=== PATIENT | female | born 1960 | race Caucasian/White ===

== ENCOUNTER 2023-05-04 17:06 | Outpatient (OUT) | payer OTHER, SELFPAY ==
--- NOTE | 2023-05-04 | XR_ITS ---
[address] [address] Patient Name: MAIKOL KNIGHT MRN: [id number] date: 1960 Sex: F Assigned Patient Location: [facility] Current Patient Location: [facility] Accession/Order Number: [id number] Exam Date: 05/04/2023 17:45 Report Date: 05/05/2023 01:39 At the request of: ANTHONY BOJORQUEZ Procedure: XR lumbar spine 2-3V EXAMINATION: XR lumbar spine 2-3V HISTORY: Chronic right low back/ right sciatic pain;M54.41 COMPARISON: XR L-spine 04/25/2017 FINDINGS: BONES: Slight left convex curvature lumbar spine. No fracture or significant spondylolisthesis. Mild degenerative facet arthropathy L3-L4 through L5-S1. DISC SPACES: Mild narrowing L3-L4. PARASPINOUS: Negative. No paraspinous abnormality is seen. OTHER: Negative. IMPRESSION: 1. No acute abnormality. 2. Mild degenerative disc disease and facet arthropathy of the lumbar spine; not appreciably changed. Electronically authenticated by: SEBASTIAN MIKE Date: 05/05/2023 01:39
--- NOTE | 2023-05-04 | XR_ITS ---
[address] [address] Patient Name: MAIKOL KNIGHT MRN: [id number] date: 1960 Sex: F Assigned Patient Location: [facility] Current Patient Location: Accession/Order Number: [id number] Exam Date: 05/04/2023 17:45 Report Date: 05/05/2023 01:36 At the request of: ANTHONY BOJORQUEZ Procedure: XR hip RT 2V w/ pelvis PROCEDURE: XR hip RT 2V w/ pelvis HISTORY: Chronic right sciatic/low back pain; M54.41 COMPARISON: None. FINDINGS: BONES:No fracture, acute abnormality, or significant arthropathy. SOFT TISSUES:No visible soft tissue swelling. EFFUSION:None visible. OTHER: Negative. IMPRESSION: 1. No acute bone abnormality or significant degenerative joint disease. Electronically authenticated by: SEBASTIAN MIKE Date: 05/05/2023 01:36
== END 2023-05-04 17:07 | disposition home or self-care (01) ==
PROVIDERS: PCP Family Medicine; Visit Provider Family Medicine
DX: M25.551 Pain in right hip (principal); M54.41 Lumbago with sciatica, right side
CPT/HCPCS: 72100; 73502

== ENCOUNTER 2023-05-13 14:15 | Emergency (ER) | payer OTHER, SELFPAY ==
[2023-05-13 14:33] VITALS: BP 152/82; PULSE 72; RESP 20; TEMP 36.6; O2SAT 96; BMI 31.8
--- NOTE | 2023-05-13 15:13 | XR_ITS ---
The [address] [address] Patient Name: MAIKOL KNIGHT MRN: [id number] date: 1960 Sex: F Assigned Patient Location: ED.MAIN Current Patient Location: Accession/Order Number: [id number] Exam Date: 05/13/2023 15:45 Report Date: 05/13/2023 16:29 At the request of: MEGAN OJEDA Procedure: XR hip RT 2V w/ pelvis EXAM: XR hip RT 2V w/ pelvis HISTORY: pain right hip COMPARISON: 05/04/2023. TECHNIQUE: AP pelvis. 2 views right hip joint. FINDINGS: Pelvic rings are intact. Surgical clips over the left pelvis. Minimal degenerative change of the hip joints with no fracture or dislocation. XR/XR hip RT 2V w/ pelvis IMPRESSION: No acute process or significant change from prior. If patient cannot bear weight or has persistent symptoms, then recommend MRI. Electronically authenticated by: ROBERT FERRER Date: 05/13/2023 16:29
[2023-05-13] MEDS: MORPHINE SULFATE 4 MG/ML VIAL 6 MG IM (15:24)
[2023-05-13] MEDS: PREDNISONE 20 MG TABLET 60 MG PO (15:24)
--- NOTE | 2023-05-13 15:26 | ED.GENADUL1 ---
Documented by User: SORAIDA Canas 05/13/23 16:00 HPI - General Adult General Chief complaint: Back Pain/Injury Stated complaint: HIP/BACK PAIN Time Seen by Provider: 05/13/23 15:02 Source: patient Mode of arrival: Wheelchair Limitations: no limitations History of Present Illness HPI narrative: patient is a 62-year-old female presents to the Emergency Room with concerns of right hip pain. Patient reports pain started four weeks ago, she denies aany specific injury, but did have increased activity with moving out of her duplex. Patient states she has pain sometimes sharp aching into the groin and buttock region occasionally radiating down the anterior thigh. She initially saw her family doctor and was on prednisone and Vicodin with temporary relief, the past few days symptoms have worsened and she has needed to use a walker. Patient states shee can stand without pain but when she twists or moves her leg then the pain comes into her groin. She denies any fevers or chills. She takes gabapentin for peripheral neuropathy and sees local neurology. Patient appears nontoxic in no acute distress at the bedside. Radiation: Denies non-radiation Severity: severe (with movement) Quality: Reports stabbing and aching Pain Consistency: Reports intermittent Exacerbating factors: Reports movement Associated symptoms: Denies confusion, chest pain, cough, nausea/vomiting or rash Related Data Home Medications Medication Instructions Recorded Confirmed albuterol sulfate 90 mcg/actuation 2 puff inhalation Q4H PRN 05/13/23 05/13/23 aerosol inhaler shortness of breath or wheezing alprazolam 0.5 mg tablet 0.5 mg PO BID PRN anxiety 05/13/23 05/13/23 amitriptyline 25 mg tablet 25 mg PO DAILY 05/13/23 05/13/23 atenolol 25 mg tablet 25 mg PO Q12H 05/13/23 05/13/23 atorvastatin 80 mg tablet 80 mg PO DAILY 05/13/23 05/13/23 budesonide-formoterol HFA 160 2 puff inhalation Q12H 05/13/23 05/13/23 mcg-4.5 mcg/actuation aerosol inhaler clopidogrel 75 mg tablet 75 mg PO DAILY 05/13/23 05/13/23 diltiazem HCl 180 mg 180 mg PO Q24H 05/13/23 05/13/23 capsule,extended release 24 hr, controlled fenofibrate nanocrystallized 145 145 mg PO DAILY 05/13/23 05/13/23 mg tablet gabapentin 600 mg tablet 600 mg PO Q8H 05/13/23 05/13/23 levothyroxine 50 mcg tablet 50 mcg PO DAILY 05/13/23 05/13/23 varenicline 1 mg tablet 1 mg PO BID 05/13/23 05/13/23 Previous Rx's Medication Instructions Recorded prednisone 20 mg tablet 20 mg PO DAILY 10 days #15 tabs 05/13/23 Allergies Allergy/AdvReac Type Severity Reaction Status Date / Time ciprofloxacin [From Cipro] Allergy Intermediate Verified 05/13/23 14:35 Penicillins Allergy Intermediate Verified 05/13/23 14:35 Sulfa (Sulfonamide Allergy Intermediate Verified 05/13/23 14:35 Antibiotics) Review of Systems ROS Constitutional Denies: fever or chills Eyes Denies: change in vision Ears, nose, mouth, and throat Denies: throat pain, neck pain or dry mouth Cardiovascular Denies: chest pain Respiratory Denies: shortness of breath or cough Gastrointestinal Denies: abdominal pain, nausea or vomiting Musculoskeletal Reports: joint pain (localized right hip); Denies: back pain or neck pain Integumentary/Breast Denies: rash or itching Neurological Denies: headache or numbness in extremities (history of peripheral neuropathy) Psychiatric Denies: anxiety Endocrine Denies: excessive urination or fatigue Hematologic/Lymphatic Denies: easy bruising Allergic/Immunologic Denies: hives or throat swelling Exam Narrative Exam Narrative: Vital signs and nurses notes reviewed. The patient is not hypoxic. General: The patient appears well and in no apparent distress. Patient is resting comfortably on cart. Skin: Warm, dry, no pallor noted. The patient has no evidence of rash, petechiae, or purpura noted. Head: Normocephalic, atraumatic, no temporal arterial tenderness Neck: Supple, trachea mid-line, no tenderness, no lymphadenopathy. No meningeal signs. No nuchal rigidity. Eye: Pupils are equal, round and reactive to light, EOMI Ears, Nose, Mouth, and Throat: Oral mucosa is moist, TMs are clear bilaterally, no hemotympanum noted. Cardiovascular: Regular Rate and Rhythm Respiratory: Patient is in no distress, no accessory muscle use, lungs are clear to auscultation, no wheezing, rales or rhonchi Back: non-tender, no CVA tenderness Musculoskeletal: right hip without warmth or erythema, mildly tender over the greater trochanteric bursa, mild tenderness to the posterior SI joint region. Straight leg raise is negative for radiculopathy, positive FADIRs test concerning for labral tear or impingement. Neg FABERS, Limited range of motion on right with stiffness mild guarding on end rom, tolerated PROM without difficulty. Left hip is unremarkable. normal strength 5/5. Normal pulses to radial 2+ bilaterally and 2+ at DP and PT bilaterally and symmetrically. right and left knee exam is unremarkable. GI: Normal bowel sounds, no tenderness to palpation, no masses appreciated. No rebound, guarding, or rigidity noted. 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 The patient is not ataxic. The patient has normal speech. The patient has normal coordination. . Normal motor and sensory observed. Psychiatric: Cooperative Constitutional Vital Signs, click to edit/add: Last Vital Signs Temp 98 F 05/13/23 14:33 Pulse 72 05/13/23 14:33 Resp 20 05/13/23 14:33 BP 152/82 H 05/13/23 14:33 Pulse Ox 96 05/13/23 14:33 O2 Del Method Room Air 05/13/23 14:33 Course Vital Signs Vital signs: Vital Signs Temperature 98 F 05/13/23 14:33 Pulse Rate 72 05/13/23 14:33 Respiratory Rate 20 05/13/23 14:33 Blood Pressure 152/82 H 05/13/23 14:33 Pulse Oximetry 96 05/13/23 14:33 Oxygen Delivery Method Room Air 05/13/23 14:33 Temperature 98 F 05/13/23 14:33 Pulse Rate 72 05/13/23 14:33 Respiratory Rate 20 05/13/23 14:33 Blood Pressure 152/82 H 05/13/23 14:33 Pulse Oximetry 96 05/13/23 14:33 Oxygen Delivery Method Room Air 05/13/23 14:33 Medical Decision Making MDM Narrative Medical decision making narrative: patient without fever or chills, has painless passive range of motion, pain is noted on extreme and range of motion with concerns for possible hip impingement or labral tear, infectious etiology not likely, patient did have x-rays on 05/04/23 and was on prednisone and pain medication prior to this with some relief. X-rays were personally reviewed, given that her symptoms have worsened I do recommend repeat x-ray today, but we thoroughly discussed at the bedside the need for potential MRI or physical therapy on an outpatient basis pending eval with orthopedics. Patient denies any low back pain and has reproducible pain at the right hip with an range of motion. Patient's abdomen is nontender, she denies any dysuria. Patient declines need for any pain medication at home as she has [place], but does request a shot here for pain and will use her walker to offload her hip pending follow-up with orthopedics. x-rays today weight-bearing preservation of the joint space, no evidence of fracture. Discussed with patient, patient will contact orthopedics tomorrow as discussed, patient's pain improved, patient admits that when she is seated or rest pain is near completely gone, standing also does not cause pain only when the leg rotates to the right or with activity and walking that she gets increased pain in the groin or buttock. The patient is to followup with primary care physician/ Dr. Truong in next 1-3 days or to return to the emergency department should any of the signs or symptoms worsen or new symptoms develop. Patient had questions answered. The patient agrees with the following Diagnosis and Treatment plan and the patient will be discharged home. Medical Records Medical records narrative: patient had outpatient right hip x-ray on 05/04/23, no acute process noted, slight pincer deformity appreciated on personal reviewed, x-ray lumbar spine 05/04/23, no acute fracture, degenerative changes mostly appreciable in the facet joints bilaterally Discharge Plan Discharge Chief Complaint: Back Pain/Injury Clinical Impression: Acute right hip pain Patient Disposition: Home, Self-Care Time of Disposition Decision: 15:59 Condition: Good Prescriptions / Home Meds: New prednisone 20 mg tablet 20 mg PO DAILY 10 Days Qty: 15 0RF Rx Instructions: 2 tabs po for 5 days then 1 tab for 5 days. take with food in morning No Action albuterol sulfate 90 mcg/actuation HFA aerosol inhaler 2 puff INHALATION Q4H PRN (Reason: shortness of breath or wheezing) alprazolam 0.5 mg tablet 0.5 mg PO BID PRN (Reason: anxiety) amitriptyline 25 mg tablet 25 mg PO DAILY atenolol 25 mg tablet 25 mg PO Q12H atorvastatin 80 mg tablet 80 mg PO DAILY budesonide-formoterol 160-4.5 mcg/actuation HFA aerosol inhaler 2 puff INHALATION Q12H clopidogrel 75 mg tablet 75 mg PO DAILY diltiazem HCl 180 mg capsule,ext.rel 24h degradable 180 mg PO Q24H fenofibrate nanocrystallized 145 mg tablet 145 mg PO DAILY gabapentin 600 mg tablet 600 mg PO Q8H levothyroxine 50 mcg tablet 50 mcg PO DAILY varenicline 1 mg tablet 1 mg PO BID Instructions: Hip Pain (ED) Additional Instructions: 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 Truong renewable energy division manager ) Christian Aviles MD [Primary Care Provider] - 1 week Discharge Date/Time: 05/13/23 16:05 Documented by User: Salina Goodrich MD 05/13/23 18:30 HPI - General Adult General Chief complaint: Back Pain/Injury Stated complaint: HIP/BACK PAIN Time Seen by Provider: 05/13/23 15:02 Related Data Home Medications Medication Instructions Recorded Confirmed albuterol sulfate 90 mcg/actuation 2 puff inhalation Q4H PRN 05/13/23 05/13/23 aerosol inhaler shortness of breath or wheezing alprazolam 0.5 mg tablet 0.5 mg PO BID PRN anxiety 05/13/23 05/13/23 amitriptyline 25 mg tablet 25 mg PO DAILY 05/13/23 05/13/23 atenolol 25 mg tablet 25 mg PO Q12H 05/13/23 05/13/23 atorvastatin 80 mg tablet 80 mg PO DAILY 05/13/23 05/13/23 budesonide-formoterol HFA 160 2 puff inhalation Q12H 07/16/23 07/16/23 mcg-4.5 mcg/actuation aerosol inhaler clopidogrel 75 mg tablet 75 mg PO DAILY 05/13/23 05/13/23 diltiazem HCl 180 mg 180 mg PO Q24H 05/13/23 05/13/23 capsule,extended release 24 hr, controlled fenofibrate nanocrystallized 145 145 mg PO DAILY 05/13/23 05/13/23 mg tablet gabapentin 600 mg tablet 600 mg PO Q8H 05/13/23 05/13/23 levothyroxine 50 mcg tablet 50 mcg PO DAILY 05/13/23 05/13/23 varenicline 1 mg tablet 1 mg PO BID 05/13/23 05/13/23 Previous Rx's Medication Instructions Recorded prednisone 20 mg tablet 20 mg PO DAILY 10 days #15 tabs 05/13/23 Allergies Allergy/AdvReac Type Severity Reaction Status Date / Time ciprofloxacin [From Cipro] Allergy Intermediate Verified 05/13/23 14:35 Penicillins Allergy Intermediate Verified 05/13/23 14:35 Sulfa (Sulfonamide Allergy Intermediate Verified 05/13/23 14:35 Antibiotics) Exam Constitutional Vital Signs, click to edit/add: Last Vital Signs Temp 98 F 05/13/23 14:33 Pulse 72 05/13/23 14:33 Resp 20 05/13/23 14:33 BP 152/82 H 05/13/23 14:33 Pulse Ox 96 05/13/23 14:33 O2 Del Method Room Air 05/13/23 14:33 Course Vital Signs Vital signs: Vital Signs Temperature 98 F 05/13/23 14:33 Pulse Rate 72 05/13/23 14:33 Respiratory Rate 20 05/13/23 14:33 Blood Pressure 152/82 H 05/13/23 14:33 Pulse Oximetry 96 05/13/23 14:33 Oxygen Delivery Method Room Air 05/13/23 14:33 Temperature 98 F 05/13/23 14:33 Pulse Rate 72 05/13/23 14:33 Respiratory Rate 20 05/13/23 14:33 Blood Pressure 152/82 H 05/13/23 14:33 Pulse Oximetry 96 05/13/23 14:33 Oxygen Delivery Method Room Air 05/13/23 14:33 Medical Decision Making MDM Narrative Medical decision making narrative: patient without fever or chills, has painless passive range of motion, pain is noted on extreme and range of motion with concerns for possible hip impingement or labral tear, infectious etiology not likely, patient did have x-rays on 05/04/23 and was on prednisone and pain medication prior to this with some relief. X-rays were personally reviewed, given that her symptoms have worsened I do recommend repeat x-ray today, but we thoroughly discussed at the bedside the need for potential MRI or physical therapy on an outpatient basis pending eval with orthopedics. Patient denies any low back pain and has reproducible pain at the right hip with an range of motion. Patient's abdomen is nontender, she denies any dysuria. Patient declines need for any pain medication at home as she has [place], but does request a shot here for pain and will use her walker to offload her hip pending follow-up with orthopedics. x-rays today weight-bearing preservation of the joint space, no evidence of fracture. Discussed with patient, patient will contact orthopedics tomorrow as discussed, patient's pain improved, patient admits that when she is seated or rest pain is near completely gone, standing also does not cause pain only when the leg rotates to the right or with activity and walking that she gets increased pain in the groin or buttock. The patient is to followup with primary care physician/ Dr. Truong in next 1-3 days or to return to the emergency department should any of the signs or symptoms worsen or new symptoms develop. Patient had questions answered. The patient agrees with the following Diagnosis and Treatment plan and the patient will be discharged home. Attending physician attestation I have reviewed the mid-level documentation, agree with the documentation, medical decision making and treatment plan as outlined by the mid-level provider. Discharge Plan Discharge Chief Complaint: Back Pain/Injury Clinical Impression: Acute right hip pain Patient Disposition: Home, Self-Care Time of Disposition Decision: 15:59 Condition: Good Prescriptions / Home Meds: New prednisone 20 mg tablet 20 mg PO DAILY 10 Days Qty: 15 0RF Rx Instructions: 2 tabs po for 5 days then 1 tab for 5 days. take with food in morning No Action albuterol sulfate 90 mcg/actuation HFA aerosol inhaler 2 puff INHALATION Q4H PRN (Reason: shortness of breath or wheezing) alprazolam 0.5 mg tablet 0.5 mg PO BID PRN (Reason: anxiety) amitriptyline 25 mg tablet 25 mg PO DAILY atenolol 25 mg tablet 25 mg PO Q12H atorvastatin 80 mg tablet 80 mg PO DAILY budesonide-formoterol 160-4.5 mcg/actuation HFA aerosol inhaler 2 puff INHALATION Q12H clopidogrel 75 mg tablet 75 mg PO DAILY diltiazem HCl 180 mg capsule,ext.rel 24h degradable 180 mg PO Q24H fenofibrate nanocrystallized 145 mg tablet 145 mg PO DAILY gabapentin 600 mg tablet 600 mg PO Q8H levothyroxine 50 mcg tablet 50 mcg PO DAILY varenicline 1 mg tablet 1 mg PO BID Instructions: Hip Pain (ED) Additional Instructions: 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 Truong renewable energy division manager ) Christian Aviles MD [Primary Care Provider] - 1 week Discharge Date/Time: 05/13/23 16:05
== END 2023-05-13 16:05 | disposition home or self-care (01) ==
PROVIDERS: Emergency Provider Emergency Medicine; PCP Family Medicine
DX: M25.551 Pain in right hip (principal); Z79.899 Other long term (current) drug therapy; Z79.890 Hormone replacement therapy
CPT/HCPCS: 73502; 96372; 99284

== ENCOUNTER 2023-06-01 09:10 | Outpatient (OUT) | payer OTHER, SELFPAY ==
--- NOTE | 2023-06-01 09:27 | MR_ITS ---
The [address] [address] Patient Name: MAIKOL KNIGHT MRN: [id number] date: 1960 Sex: F Assigned Patient Location: LAB Current Patient Location: LAB Accession/Order Number: [id number] Exam Date: 06/01/2023 09:34 Report Date: 06/01/2023 16:24 At the request of: EMETERIO Wilkinson APLING Procedure: MR hip RT wo/w con HISTORY: Chronic right hip pain radiating into the right groin for the past 6 months. No known injury. Pain becoming worse when bearing weight. MRI right hip without and with contrast 06/01/2023. COMPARISON: Radiographs right hip and pelvis 05/13/2023. TECHNIQUE: Multiplanar, multisequence MRI images of the pelvis and right hip were obtained prior to and following the intravenous administration of gadolinium. FINDINGS: On the large [id number] images of the pelvis there appear to be probable mild degenerative changes of the left hip joint. There is no evidence of avascular necrosis or fracture of the left hip. There is soft tissue edema along the lateral aspect of the left greater trochanter. The bone marrow signal intensity is age appropriate. There appear to be probable mild degenerative changes of the sacroiliac joints. The uterus is not visualized. Within the subchondral bone of the majority of the superior and anterosuperior aspect of the right femoral head there is a subtle curvilinear focus of abnormal decreased T1, T2 and STIR signal intensity measuring approximately 2.4 x 2.5 cm in AP and transverse dimension. This involves approximately 75% of the cross-sectional area of the weightbearing portion of the femoral head. This is associated with mild flattening of the superior articular surface in these regions. There is a large amount of surrounding bone marrow edema and patchy enhancement throughout the majority of the femoral head and extending into the femoral neck. However, there appears to be relative preservation of the T1 fat signal intensity in these regions. No other abnormal enhancement of the bone marrow is seen. There is a moderate size right hip joint effusion with a moderate underlying synovitis. There appear to be mild degenerative changes of the anterosuperior aspect of the right hip joint where there appears to be mild cartilage thinning. There is a small amount of soft tissue edema and enhancement along the lateral aspect of the right greater trochanter, but no significant gluteal tendinopathy is seen. MR/MR hip RT wo/w con IMPRESSION: 1. There are MRI findings compatible with either a mildly impacted subchondral insufficiency fracture of the superior and anterosuperior aspect of the right femoral head with surrounding bone marrow edema and enhancement throughout the femoral head/neck due to underlying osteopenia/osteoporosis, or alternatively, these findings could be secondary to underlying avascular necrosis with mild collapse of the articular surface. There appear to be mild degenerative changes of the right hip joint and there is an associated moderate-sized right hip joint effusion and synovitis. 2. Probable mild degenerative change of the anterior aspect of the left hip joint on the large [id number]-eozk images of the pelvis. However, there is no evidence of avascular necrosis or fracture of the left hip. 3. Possible mild bilateral greater trochanteric bursitis without evidence of significant gluteal tendinopathy. This report was placed in the wet read folder to be faxed and called to the referring clinician's office (Emeterio Orourke) on the afternoon of 06/01/2023 shortly after the study was presented for interpretation. Electronically authenticated by: JANE GARCIA Date: 06/01/2023 16:24
[2023-06-01 09:28] LABS: Estimated GFR (African America >60 (>=60); Estimated GFR (Non-African Ame 53 (>=60)
== END 2023-06-01 09:11 | disposition home or self-care (01) ==
LOC: LAB 09:10
PROVIDERS: PCP Family Medicine; Visit Provider Nurse Practitioner Family
DX: M16.11 Unilateral primary osteoarthritis, right hip (principal); M24.159 Other articular cartilage disorders, unspecified hip
CPT/HCPCS: 36415; 73723; 82565; A9575

== ENCOUNTER 2023-06-25 13:05 | Outpatient (OUT) | payer OTHER, SELFPAY ==
--- NOTE | 2023-06-25 13:08 | XR_ITS ---
The [address] [address] Patient Name: MAIKOL KNIGHT MRN: [id number] date: 1960 Sex: F Assigned Patient Location: [facility] Current Patient Location: [facility] Accession/Order Number: [id number] Exam Date: 06/25/2023 13:22 Report Date: 06/25/2023 16:02 At the request of: NON-STAFF PHYSICIAN Procedure: XR DEXA axial skeleton DEXA Bone Density Study INDICATION: Pathologic fracture, right femoral neck. Evaluate bone mineral density. COMPARISON:No prior DEXA scan available for comparison at the time of this dictation. FINDINGS: The bone density study was assessed by dual-energy x-ray absorptiometry with the Sitemasher scanner. The test results are expressed in T-Score, which is used for diagnosis for osteoporosis, and reflects the standard deviations from the mean peak bone mineral density in young adults. Additional information regarding the Z-Score reflects the standard deviations from the mean peak bone mineral density for age- and gender- matched subject. Lumbar Spine (L1-L4): BMD (gm/cm2): 0.995 T-Score: -1.5 Left Hip TOTAL: BMD (gm/cm2): 0.915 T-Score: -0.7 Left Hip NECK: BMD (gm/cm2): 0.936 T-Score: -0.7 Right hip TOTAL: BMD (gm/cm2): 0.893 T score: -0.9 Right hip NECK: BMD (gm/cm2): 0.963 T score: -0.5 XR/XR DEXA axial skeleton IMPRESSION: Bone mineral density WHO Classification: Osteopenia Fracture riskmoderate REFERENCE: In children, postmenopausal women and males under age 50 not at increased risk for fractures, only Z-Scores, not T-Scores, are used to indicate fracture risk. A Z-Score above -2.0 is defined as within the expected range for age and Z-Score at or less than -2.0 is below the expected range for age. A Z-Score below the expected range for age in a patient with recent fractures and/or chronic corticosteroid treatment is consistent with a diagnosis of osteoporosis. In postmenopausal women and males over 50, comparison of the measured bone mineral density with the average value in young normal subjects (the T-Score) has been found to be useful in assessing fracture risk. Fracture risk approximately doubles for each 1.0 standard deviation (SD) that the individuals hip or spine bone mineral density is below the average value of young normal subjects. The World Health Organization (WHO) has provided the following definitions: 1. Normal: T-Score within one standard deviation of young adult mean value (T-Score at or above -1.0). 2. Osteopenia (low bone mass): T-Score more than one standard deviation below the young adult mean but less than 2.5 standard deviations below the young adult mean (T-Score between -1.0 and -2.5). 3. Osteoporosis: T-Score at or more than 2.5 standard deviations below the young adult mean (T-Score at or less than -2.5). 4. Severe Osteoporosis (established osteoporosis): T-Score more than 2.5 standard deviations below young adult and one or more fragility fracture (T-Score less than -2.5 plus fragility fractures). Electronically authenticated by: KENYON JAUREGUI Date: 06/25/2023 16:02
== END 2023-06-25 13:06 | disposition home or self-care (01) ==
LOC: RAD 13:05
PROVIDERS: PCP Family Medicine
DX: M84.451A Pathological fracture, right femur, initial encounter for fracture (principal)
CPT/HCPCS: 77080

== ENCOUNTER 2023-10-02 11:55 | Outpatient (OUT) | payer OTHER, SELFPAY ==
[2023-10-02 12:51] LABS: Free T4 1.26 ng/dL (0.76-1.46)
[2023-10-02 12:56] LABS: Creatinine Urine Random 29.36 mg/dL (20.00-300.00)
[2023-10-02 12:58] LABS: Anion Gap 14.2; BUN Creatinine Ratio 10.4; Calcium 8.6 mg/dL (8.5-10.1); Carbon Dioxide 27.8 mmol/L (21.0-32.0); Chloride 103 mmol/L (98-107); Estimated GFR (African America >60 (>=60); Estimated GFR (Non-African Ame 59 (>=60); Free T3 2.76 pg/mL (2.18-3.98); Glucose 108 mg/dL (74-106); Sodium 141 mmol/L (136-145); Thyroid Stimulating Hormone 2.198 uIU/mL (0.358-3.740)
[2023-10-02 13:05] LABS: Total Volume 24 Hour Urine 2750 mL/24hr
[2023-10-08 02:12] LABS: Metanephrine, U,24hr 143 ug/24 hr (36-209); Metanephrine, Ur 52 ug/L (Undefined); Normetanephr.,U,24h 575 ug/24 hr (131-612); Normetanephrine, Ur 209 ug/L (Undefined)
== END 2023-10-02 11:56 | disposition home or self-care (01) ==
LOC: LAB 11:57
PROVIDERS: PCP Family Medicine; Visit Provider Internal Medicine
DX: E03.9 Hypothyroidism, unspecified (principal); E55.9 Vitamin D deficiency, unspecified; R61 Generalized hyperhidrosis
CPT/HCPCS: 36415; 80048; 82570; 83497; 83519; 83835; 84439; 84443; 84481

== ENCOUNTER 2024-03-13 07:11 | Outpatient (OUT) | payer OTHER, SELFPAY ==
--- OUTSIDE RECORDS SUMMARY | 2024-03-12 13:48 | XMS_ITS | CCD ---
Author Organization [facility] Care Team Providers Care Sandwich Hand Name Role Phone PHYSICIAN, DEFAULT Unavailable Unavailable PHYSICIAN, DEFAULT Unavailable Unavailable NAE MONTOYA Unavailable Unavailable PHYSICIAN, DEFAULT Unavailable Unavailable PHYSICIAN, DEFAULT Unavailable Unavailable NAE MONTOYA Unavailable Unavailable NADERER, DR ANTHONY Stephenson Admitting Unavailable NADERER, DR ANTHONY Stephenson Attending Unavailable NADERER, DR ANTHONY Stephenson Primary Care Unavailable NADERER, DR ANTHONY Stephenson Consulting Unavailable NADERER, DR ANTHONY Stephenson Admitting Unavailable NADERER, DR ANTHONY Stephenson Attending Unavailable NADERER, DR ANTHONY Stephenson Primary Care Unavailable ZIEBER, DR SEBASTIAN Camacho Consulting Unavailable NADERER, DR ANTHONY Stephenson Consulting Unavailable NADERER, DR ANTHONY Stephenson Admitting Unavailable NADERER, DR ANTHONY Stephenson Attending Unavailable NADERER, DR ANTHONY Stephenson Primary Care Unavailable NADERER, DR ANTHONY Stephenson Consulting Unavailable NADERER, ANTHONY Attending Unavailable SAVANNA, JELANI Attending Unavailable NADERER, ANTHONY Referring Unavailable Allergies Allergy Classification Reported Allergen(s) Allergy Type Date of Onset Reaction(s) Facility (1 source) Ciprofloxacin Drug Allergy 07-25-2017 [facility] (1 source) Penicillin Drug Allergy 07-25-2017 [facility] (1 source) Sulfonamides (Antibiotic) Drug allergy (disorder) 07-25-2017 [facility] Problems Active Problems Problem Classification Problem Date Documented Date Episodic/Chronic Coronary atherosclerosis and other heart disease (1 source) Atherosclerotic heart disease of [place] coronary artery without angina pectoris; Translations: [ASHD [place] W/O ANGINA PECTORIS] Onset: 10-01-2021 Chronic Disorders of lipid metabolism (1 source) Hyperlipidemia, unspecified; Translations: [HYPERLIPIDEMIA UNSPECIFIED] Onset: 09-09-2022 Chronic Essential hypertension (5 sources) Essential (primary) hypertension; Translations: [ESSENTIAL PRIMARY HYPERTENSION] Onset: 09-27-2021 Chronic Other aftercare (1 source) Other correction (current) drug therapy; Translations: [OTH ASSISTED CURRENT DRUG THERAPY] Onset: 09-09-2022 Episodic Thyroid disorders (5 sources) Hypothyroidism, unspecified; Translations: [HYPOTHYROIDISM UNSPECIFIED] Onset: 10-01-2021 Chronic Past or Other Problems Problem Classification Problem Date Documented Da te Episodic/Chronic Other connective tissue disease (4 sources) Soft tissue disorder, unspecified; Translations: [SOFT TISSUE DISORDER UNSPECIFIED] Onset: 04-20-2022 Episodic Results Test Name Value Interpretation Reference Range Facil ity CBC AUTO DIFFon 09-04-2022 BASO # 0.0 103/ul Normal 0.0-0.1 [facility] Comment on above: Performed By: #### L IVER, TSH, LIPID, FT3, BMP #### [facility] [address] [place] [address] Dr. Annalise Sebastian Basophils/100 WBC (Bld) 0.6 % Normal 0.2-2.0 [facility] Comment on above: Performed By: #### L IVER, TSH, LIPID, FT3, BMP #### [facility] [address] [place] [address] Dr. Annalise Sebastian EO # 0.1 103/ul Normal 0.0-0.7 [facility] Comment on above: Performed By: #### L IVER, TSH, LIPID, FT3, BMP #### [facility] [address] [place] [address] Dr. Annalise Sebastian Eosinophils/100 WBC (Bld) 1.7 % Normal 0.9-7.0 [facility] Comment on above: Performed By: #### L IVER, TSH, LIPID, FT3, BMP #### [facility] [address] [place] [address] Dr. Annalise Sebastian Erythrocyte distribution width (RBC) [Ratio] 13.3 % Normal 11.0-15.0 [facility] Comment on above: Performed By: #### L IVER, TSH, LIPID, FT3, BMP #### [facility] [address] [place] [address] Dr. Annalise Sebastian Hematocrit (Bld) [Volume fraction] 42.5 % Normal 36.0-48.0 [facility] Comment on above: Performed By: #### L IVER, TSH, LIPID, FT3, BMP #### [facility] [address] [place] [address] Dr. Annalise Sebastian Hemoglobin (Bld) [Mass/Vol] 14.2 g/dL Normal 12.0-16.0 [facility] Comment on above: Performed By: #### L IVER, TSH, LIPID, FT3, BMP #### [facility] [address] [place] [address] Dr. Annalise Sebastian IG # 0.02 10e3/ul Normal 0.00-0.03 [facility] Comment on above: Performed By: #### L IVER, TSH, LIPID, FT3, BMP #### [facility] [address] [place] [address] Dr. Annalise Sebastian IG % 0.3 % Normal 0.0-0.5 [facility] Comment on above: Performed By: #### L IVER, TSH, LIPID, FT3, BMP #### [facility] [address] [place] [address] Dr. Annalise Sebastian LYMPH # 1.4 103/ul Normal 1.2-3.8 [facility] Comment on above: Performed By: #### L IVER, TSH, LIPID, FT3, BMP #### [facility] [address] [place] [address] Dr. Annalise Sebastian Lymphocytes/100 WBC (Bld) 20.0 % Critically low 20.5-60.0 [facility] Comment on above: Performed By: #### L IVER, TSH, LIPID, FT3, BMP #### [facility] [address] [place] [address] Dr. Annalise Sebastian MANUAL DIFF REQ NO Normal [facility] Comment on above: Performed By: #### L IVER, TSH, LIPID, FT3, BMP #### [facility] [address] [place] [address] Dr. Annalise Sebastian MCH (RBC) [Entitic mass] 27.5 pg Normal 26.7-34.0 [facility] Comment on above: Performed By: #### L IVER, TSH, LIPID, FT3, BMP #### [facility] [address] [place] [address] Dr. Annalise Sebastian MCHC (RBC) [Mass/Vol] 33.4 g/dL Normal 29.9-35.2 [facility] Comment on above: Performed By: #### L IVER, TSH, LIPID, FT3, BMP #### [facility] [address] [place] [address] Dr. Annalise Sebastian MCV (RBC) [Entitic vol] 82.4 fL Normal 81.0-99.0 [facility] Comment on above: Performed By: #### L IVER, TSH, LIPID, FT3, BMP #### [facility] [address] [place] [address] Dr. Annalise Sebastian MONO # 0.6 103/ul Normal 0.3-0.8 [facility] Comment on above: Performed By: #### L IVER, TSH, LIPID, FT3, BMP #### [facility] [address] [place] [address] Dr. Annalise Sebastian Monocytes/100 WBC (Bld) 8.1 % Normal 1.7-12.0 [facility] Comment on above: Performed By: #### L IVER, TSH, LIPID, FT3, BMP #### [facility] [address] [place] [address] Dr. Annalise Sebastian NEUT # 4.8 103/ul Normal 1.4-6.5 [facility] Comment on above: Performed By: #### L IVER, TSH, LIPID, FT3, BMP #### [facility] [address] [place] [address] Dr. Annalise Sebastian Neutrophils/100 WBC (Bld) 69.3 % Normal 43.0-75.0 [facility] Comment on above: Performed By: #### L IVER, TSH, LIPID, FT3, BMP #### [facility] [address] [place] [address] Dr. Annalise Sebastian Platelet mean volume (Bld) [Entitic vol] 9.7 fL Normal 9.5-13.5 [facility] Comment on above: Performed By: #### L IVER, TSH, LIPID, FT3, BMP #### [facility] [address] [place] [address] Dr. Annalise Sebastian PLT 290 103/ul Normal 150-450 [facility] Comment on above: Performed By: #### L IVER, TSH, LIPID, FT3, BMP #### [facility] [address] [place] [address] Dr. Annalise Sebastian RBC 5.16 106/ul Normal 4.20-5.40 [facility] Comment on above: Performed By: #### L IVER, TSH, LIPID, FT3, BMP #### [facility] [address] [place] [address] Dr. Annalise Sebastian WBC 6.9 103/ul Normal 4.0-11.0 [facility] Comment on above: Performed By: #### L IVER, TSH, LIPID, FT3, BMP #### [facility] [address] [place] [address] Dr. Annalise Sebastian FREE T3on 09-04-2022 FREE T3 2.68 pg/mlL Normal 2.18-3.98 [facility] Comment on above: Performed By: #### L IVER, TSH, LIPID, FT3, BMP #### [facility] [address] [place] [address] Dr. Annalise Sebastian FREE T4on 09-04-2022 Free T4 [Mass/Vol] 1.06 ng/dL Normal 0.76-1.46 [facility] Comment on above: Performed By: #### L IVER, TSH, LIPID, FT3, BMP #### [facility] [address] [place] [address] Dr. Annalise Sebastian LIPID PROFILEon 09-04-2022 CHOL-HDL RATIO NORM SEE BELOW Normal [facility] Comment on above: Result Comment: 3.3 - 4.4 LOW RISK 4.4 - 7.1 AVERAGE RISK 7.1 - 11.0 MODERATE RISK >11.0 HIGH RISK Performed By: #### L IVER, TSH, LIPID, FT3, BMP #### [facility] [address] [place] [address] Dr. Annalise Sebastian Cholesterol [Mass/Vol] 170 mg/dL Normal <=200 [facility] Comment on above: Performed By: #### L IVER, TSH, LIPID, FT3, BMP #### [facility] [address] [address] [address] Annalise Sebastian Cholesterol in HDL [Mass/Vol] 36 mg/dL Critically low 40-60 [facility] Comment on above: Performed By: #### L IVER, TSH, LIPID, FT3, BMP #### [facility] [address] [place] [address] Dr. Annalise Sebastian Cholesterol in LDL [Mass/Vol] 85.2 mg/dL Normal [facility] Comment on above: Performed By: #### L IVER, TSH, LIPID, FT3, BMP #### [facility] [address] [place] [address] Dr. Annalise Sebastian Cholesterol.total/C holesterol in HDL [Mass ratio] 4.7 {ratio} Normal [facility] Comment on above: Performed By: #### L IVER, TSH, LIPID, FT3, BMP #### [facility] [address] [place] [address] Dr. Annalise Sebastian HDL NORMAL > or = 60 mg/dl - LO W CARDIOVASCULAR RISK <40 mg/dl - HIGH CARDIOVASCULAR RISK Normal [facility] Comment on above: Performed By: #### L IVER, TSH, LIPID, FT3, BMP #### [facility] [address] [place] [address] Dr. Annalise Sebastian LDL CALC NORMAL SEE BELOW Normal [facility] Comment on above: Result Comment: <100 mg/dl OPTIMAL 100 - 129 mg/dl NEAR OR ABOVE OPTIMAL 130 - 159 mg/dl BORDERLINE HIGH 160 - 189 mg/dl HIGH >190 mg/dl VERY HIGH Performed By: #### L IVER, TSH, LIPID, FT3, BMP #### [facility] [address] [place] [address] Dr. Annalise Sebastian Triglyceride [Mass/Vol] 244 mg/dL Critically high <=150 [facility] Comment on above: Performed By: #### L IVER, TSH, LIPID, FT3, BMP #### [facility] [address] [place] [address] Dr. Annalise Sebastian VLDL CALC 48.8 mg/dL Normal [facility] Comment on above: Performed By: #### L IVER, TSH, LIPID, FT3, BMP #### [facility] [address] [address] [address] Annalise Sebastian LIVER PROFILEon 09-04-2022 Albumin [Mass/Vol] 3.7 g/dL Normal 3.4-5.0 [facility] Comment on above: Performed By: #### L IVER, TSH, LIPID, FT3, BMP #### [facility] [address] [place] [address] Dr. Annalise Sebastian Albumin/Globulin [Mass ratio] 1.0 {ratio} Normal [facility] Comment on above: Performed By: #### L IVER, TSH, LIPID, FT3, BMP #### [facility] [address] [place] [address] Dr. Annalise Sebastian ALP [Catalytic activity/Vol] 75 U/L Normal 46-116 [facility] Comment on above: Performed By: #### L IVER, TSH, LIPID, FT3, BMP #### [facility] [address] [place] [address] Dr. Annalise Sebastian ALT [Catalytic activity/Vol] 39 U/L Normal 14-59 [facility] Comment on above: Performed By: #### L IVER, TSH, LIPID, FT3, BMP #### [facility] [address] [place] [address] Dr. Annalise Sebastian AST [Catalytic activity/Vol] 30 U/L Normal 15-37 [facility] Comment on above: Performed By: #### L IVER, TSH, LIPID, FT3, BMP #### [facility] [address] [place] [address] Dr. Annalise Sebastian BILI, CONJUGATED 0.1 mg/dL Normal 0.0-0.2 [facility] Comment on above: Performed By: #### L IVER, TSH, LIPID, FT3, BMP #### [facility] [address] [place] [address] Dr. Annalise Sebastian Bilirubin [Mass/Vol] 0.3 mg/dL Normal 0.2-1.0 [facility] Comment on above: Performed By: #### L IVER, TSH, LIPID, FT3, BMP #### [facility] [address] [place] [address] Dr. Annalise Sebastian Globulin (S) [Mass/Vol] 3.6 g/dL Normal [facility] Comment on above: Performed By: #### L IVER, TSH, LIPID, FT3, BMP #### [facility] [address] [place] [address] Dr. Annalise Sebastian Protein [Mass/Vol] 7.3 g/dL Normal 6.4-8.2 [facility] Comment on above: Performed By: #### L IVER, TSH, LIPID, FT3, BMP #### [facility] [address] [place] [address] Dr. Annalise Sebastian PROF CHEM 8 (BAS METB)on Anion gap [Moles/Vol] 9.4 mmol/L Normal [facility] Comment on above: Performed By: #### L IVER, TSH, LIPID, FT3, BMP #### [facility] [address] [place] [address] Dr. Annalise Sebastian Calcium [Mass/Vol] 9.3 mg/dL Normal 8.5-10.1 [facility] Comment on above: Performed By: #### L IVER, TSH, LIPID, FT3, BMP #### [facility] [address] [place] [address] Dr. Annalise Sebastian Chloride [Moles/Vol] 102 mmol/L Normal 98-107 [facility] Comment on above: Performed By: #### L IVER, TSH, LIPID, FT3, BMP #### [facility] [address] [place] [address] Dr. Annalise Sebastian CO2 [Moles/Vol] 29.1 mmol/L Normal 21.0-32.0 [facility] Comment on above: Performed By: #### L IVER, TSH, LIPID, FT3, BMP #### [facility] [address] [address] [address] Annalise Sebastian Creatinine [Mass/Vol] 1.01 mg/dL Normal 0.55-1.02 [facility] Comment on above: Performed By: #### L IVER, TSH, LIPID, FT3, BMP #### [facility] [address] [place] [address] Dr. Annalise Sebastian EGFR-AF MONTSERRATIAN >60 Normal >=60 [facility] Comment on above: Performed By: #### L IVER, TSH, LIPID, FT3, BMP #### [facility] [address] [place] [address] Dr. Annalise Sebastian EGFR-NON AF [place] 56 mL/min/1.73m2 Critically low >=60 [facility] Comment on above: Performed By: #### L IVER, TSH, LIPID, FT3, BMP #### [facility] [address] [place] [address] Dr. Annalise Sebastian Glucose [Mass/Vol] 115 mg/dL Critically high 74-106 [facility] Comment on above: Performed By: #### L IVER, TSH, LIPID, FT3, BMP #### [facility] [address] [place] [address] Dr. Annalise Sebastian Potassium [Moles/Vol] 3.5 mmol/L Normal 3.5-5.1 [facility] Comment on above: Performed By: #### L IVER, TSH, LIPID, FT3, BMP #### [facility] [address] [address] [address] Annalise Sebastian Sodium [Moles/Vol] 137 mmol/L Normal 136-145 [facility] Comment on above: Performed By: #### L IVER, TSH, LIPID, FT3, BMP #### [facility] [address] [place] [address] Dr. Annalise Sebastian Urea nitrogen [Mass/Vol] 12.0 mg/dL Normal 7.0-18.0 [facility] Comment on above: Performed By: #### L IVER, TSH, LIPID, FT3, BMP #### [facility] [address] [address] [address] Annalise Sebastian Urea nitrogen/Creatinine [Mass ratio] 11.9 mg/mg Normal [facility] Comment on above: Performed By: #### L IVER, TSH, LIPID, FT3, BMP #### [facility] [address] [address] [address] Annalise Sebastian TSHon 09-04-2022 TSH 1.347 uIU/mL Normal 0.358-3.740 [facility] Comment on above: Performed By: #### L IVER, TSH, LIPID, FT3, BMP #### [facility] [address] [address] [address] Annalise Sebastian US CHESTon 04-21-2022 US CHEST EXAM: US CHEST HISTORY: Disorder of soft tissue ; right shoulder lump for 6 months COMPARISON: None. TECHNIQUE: Ultrasound evaluation of soft tissues overlying shoulder. FINDINGS: No appreciable mass, fluid collection, or architectural distortion. No appreciable definable whyte of a lipoma. IMPRESSION: 1. No abnormal ultrasound findings to account for patient's palpable lump. This may represent a nonencapsulated lipoma. Electronically authenticated by: SEBASTIAN MIKE Date: 2022-04-21 17:34 Normal [facility] CBC AUTO DIFFon 09-27-2021 BASO # 0.0 103/ul Normal 0.0-0.1 [facility] Comment on above: Performed By: #### C BC #### [facility] [address] [place] [address] Dr. Annalise Sebastian Basophils/100 WBC (Bld) 0.5 % Normal 0.2-2.0 [facility] Comment on above: Performed By: #### C BC #### [facility] [address] [place] [address] Dr. Annalise Sebastian EO # 0.2 103/ul Normal 0.0-0.7 [facility] Comment on above: Performed By: #### C BC #### [facility] [address] [place] [address] Dr. Annalise Sebastian Eosinophils/100 WBC (Bld) 1.9 % Normal 0.9-7.0 [facility] Comment on above: Performed By: #### C BC #### [facility] [address] [place] [address] Dr. Annalise Sebastian Erythrocyte distribution width (RBC) [Ratio] 13.3 % Normal 11.0-15.0 [facility] Comment on above: Performed By: #### C BC #### [facility] [address] [place] [address] Dr. Annalise Sebastian Hematocrit (Bld) [Volume fraction] 40.9 % Normal 36.0-48.0 [facility] Comment on above: Performed By: #### C BC #### [facility] [address] [place] [address] Dr. Annalise Sebastian Hemoglobin (Bld) [Mass/Vol] 12.9 g/dL Normal 12.0-16.0 [facility] Comment on above: Performed By: #### C BC #### [facility] [address] [place] [address] Dr. Annalise Sebastian IG # 0.02 10e3/ul Normal 0.00-0.03 [facility] Comment on above: Performed By: #### C BC #### [facility] [address] [place] [address] Dr. Annalise Sebastian IG % 0.2 % Normal 0.0-0.5 [facility] Comment on above: Performed By: #### C BC #### [facility] [address] [place] [address] Dr. Annalise Sebastian LYMPH # 1.8 103/ul Normal 1.2-3.8 [facility] Comment on above: Performed By: #### C BC #### [facility] [address] [place] [address] Dr. Annalise Sebastian Lymphocytes/100 WBC (Bld) 21.0 % Normal 20.5-60.0 [facility] Comment on above: Performed By: #### C BC #### [facility] [address] [place] [address] Dr. Annalise Sebastian MANUAL DIFF REQ NO Normal [facility] Comment on above: Performed By: #### C BC #### [facility] [address] [address] [address] Annalise Sebastian MCH (RBC) [Entitic mass] 26.9 pg Normal 26.7-34.0 [facility] Comment on above: Performed By: #### C BC #### [facility] [address] [place] [address] Dr. Annalise Sebastian MCHC (RBC) [Mass/Vol] 31.5 g/dL Normal 29.9-35.2 [facility] Comment on above: Performed By: #### C BC #### [facility] [address] [place] [address] Dr. Annalise Sebastian MCV (RBC) [Entitic vol] 85.4 fL Normal 81.0-99.0 [facility] Comment on above: Performed By: #### C BC #### [facility] [address] [place] [address] Dr. Annalise Sebastian MONO # 0.6 103/ul Normal 0.3-0.8 [facility] Comment on above: Performed By: #### C BC #### [facility] [address] [place] [address] Dr. Annalise Sebastian Monocytes/100 WBC (Bld) 7.7 % Normal 1.7-12.0 [facility] Comment on above: Performed By: #### C BC #### [facility] [address] [place] [address] Dr. Annalise Sebastian NEUT # 5.7 103/ul Normal 1.4-6.5 [facility] Comment on above: Performed By: #### C BC #### [facility] [address] [place] [address] Dr. Annalise Sebastian Neutrophils/100 WBC (Bld) 68.7 % Normal 43.0-75.0 [facility] Comment on above: Performed By: #### C BC #### [facility] [address] [place] [address] Dr. Annalise Sebastian Platelet mean volume (Bld) [Entitic vol] 10.0 fL Normal 9.5-13.5 [facility] Comment on above: Performed By: #### C BC #### [facility] [address] [address] [address] Annalise Sebastian PLT 355 103/ul Normal 150-450 [facility] Comment on above: Performed By: #### C BC #### [facility] [address] [address] [address] Annalise Sebastian RBC 4.79 106/ul Normal 4.20-5.40 [facility] Comment on above: Performed By: #### C BC #### [facility] [address] [place] [address] Dr. Annalise Sebastian WBC 8.3 103/ul Normal 4.0-11.0 [facility] Comment on above: Performed By: #### C BC #### [facility] [address] [place] [address] Dr. Annalise Sebastian FREE T3on 09-27-2021 FREE T3 2.77 pg/mlL Normal 2.77-5.27 [facility] Comment on above: Performed By: #### F T3, BMP, LIPID, TSH, LIVER #### [facility] [address] [place] [address] Dr. Annalise Sebastian FREE T4on 09-27-2021 Free T4 [Mass/Vol] 1.29 ng/dL Normal 0.78-2.19 [facility] Comment on above: Performed By: #### L IVER, TSH, LIPID, FT3, BMP #### [facility] [address] [place] [address] Dr. Annalise Sebastian LIPID PROFILEon 09-27-2021 CHOL-HDL RATIO NORM SEE BELOW Normal [facility] Comment on above: Result Comment: 3.3 - 4.4 LOW RISK 4.4 - 7.1 AVERAGE RISK 7.1 - 11.0 MODERATE RISK >11.0 HIGH RISK Performed By: #### L IVER, TSH, LIPID, FT3, BMP #### [facility] [address] [place] [address] Dr. Annalise Sebastian Cholesterol [Mass/Vol] 148 mg/dL Normal <=200 [facility] Comment on above: Performed By: #### L IVER, TSH, LIPID, FT3, BMP #### [facility] [address] [address] [address] Annalise Sebastian Cholesterol in HDL [Mass/Vol] 36 mg/dL Normal [facility] Comment on above: Performed By: #### L IVER, TSH, LIPID, FT3, BMP #### [facility] [address] [address] [address] Annalise Sebastian Cholesterol in LDL [Mass/Vol] 59.8 mg/dL Normal [facility] Comment on above: Performed By: #### L IVER, TSH, LIPID, FT3, BMP #### [facility] [address] [address] [address] Annalise Sebastian Cholesterol.total/C holesterol in HDL [Mass ratio] 4.1 {ratio} Normal [facility] [place] Comment on above: Performed By: #### L IVER, TSH, LIPID, FT3, BMP #### [facility] [address] [address] [address] Annalise Sebastian HDL NORMAL > or = 60 mg/dl - LO W CARDIOVASCULAR RISK <40 mg/dl - HIGH CARDIOVASCULAR RISK Normal [facility] [place] Comment on above: Performed By: #### L IVER, TSH, LIPID, FT3, BMP #### [facility] [address] [address] [address] Annalise Sebastian LDL CALC NORMAL SEE BELOW Normal [facility] Comment on above: Result Comment: <100 mg/dl OPTIMAL 100 - 129 mg/dl NEAR OR ABOVE OPTIMAL 130 - 159 mg/dl BORDERLINE HIGH 160 - 189 mg/dl HIGH >190 mg/dl VERY HIGH Performed By: #### L IVER, TSH, LIPID, FT3, BMP #### [facility] [address] [address] [address] Annalise Sebastian Triglyceride [Mass/Vol] 261 mg/dL Critically high <=150 [facility] [place] Comment on above: Performed By: #### L IVER, TSH, LIPID, FT3, BMP #### [facility] [address] [address] [address] Annalise Sebastian VLDL CALC 52.2 mg/dL Normal [facility] [place] Comment on above: Performed By: #### L IVER, TSH, LIPID, FT3, BMP #### [facility] [address] [place] [address] Dr. Annalise Sebastian LIVER PROFILEon 09-27-2021 Albumin [Mass/Vol] 3.8 g/dL Normal 3.5-5.0 [facility] Comment on above: Performed By: #### F T3, BMP, LIPID, TSH, LIVER #### [facility] [address] [place] [address] Dr. Annalise Sebastian Albumin/Globulin [Mass ratio] 1.0 {ratio} Normal [facility] [place] Comment on above: Performed By: #### F T3, BMP, LIPID, TSH, LIVER #### [facility] [address] [place] [address] Dr. Annalise Sebastian ALP [Catalytic activity/Vol] 65 U/L Normal 38-126 [facility] [place] Comment on above: Performed By: #### F T3, BMP, LIPID, TSH, LIVER #### [facility] [address] [place] [address] Dr. Annalise Sebastian ALT [Catalytic activity/Vol] 29 U/L Normal 9-52 [facility] [place] Comment on above: Performed By: #### F T3, BMP, LIPID, TSH, LIVER #### [facility] [address] [place] [address] Dr. Annalise Sebastian AST [Catalytic activity/Vol] 24 U/L Normal 14-36 [facility] [place] Comment on above: Performed By: #### F T3, BMP, LIPID, TSH, LIVER #### [facility] [address] [place] [address] Dr. Annalise Sebastian BILI, CONJUGATED 0.1 mg/dL Normal 0.0-0.3 [facility] Comment on above: Performed By: #### F T3, BMP, LIPID, TSH, LIVER #### [facility] [address] [place] [address] Dr. Annalise Sebastian Bilirubin [Mass/Vol] 0.3 mg/dL Normal 0.2-1.3 [facility] [place] Comment on above: Performed By: #### F T3, BMP, LIPID, TSH, LIVER #### [facility] [address] [place] [address] Dr. Annalise Sebastian Globulin (S) [Mass/Vol] 3.9 g/dL Normal [facility] [place] Comment on above: Performed By: #### F T3, BMP, LIPID, TSH, LIVER #### [facility] [address] [place] [address] Dr. Annalise Sebastian Protein [Mass/Vol] 7.7 g/dL Normal 6.1-8.2 [facility] Comment on above: Performed By: #### F T3, BMP, LIPID, TSH, LIVER #### [facility] [address] [place] [address] Dr. Annalise Sebastian PROF CHEM 8 (BAS METB)on Anion gap [Moles/Vol] 10.8 mmol/L Normal [facility] Comment on above: Performed By: #### F T3, BMP, LIPID, TSH, LIVER #### [facility] [address] [place] [address] Dr. Annalise Sebastian Calcium [Mass/Vol] 9.5 mg/dL Normal 8.4-10.2 [facility] Comment on above: Performed By: #### F T3, BMP, LIPID, TSH, LIVER #### [facility] [address] [place] [address] Dr. Annalise Sebastian Chloride [Moles/Vol] 101 mmol/L Normal 98-107 [facility] Comment on above: Performed By: #### F T3, BMP, LIPID, TSH, LIVER #### [facility] [address] [place] [address] Dr. Annalise Sebastian CO2 [Moles/Vol] 29.9 mmol/L Normal 22.0-30.0 [facility] Comment on above: Performed By: #### F T3, BMP, LIPID, TSH, LIVER #### [facility] [address] [place] [address] Dr. Annalise Sebastian Creatinine [Mass/Vol] 1.08 mg/dL Critically high 0.52-1.04 [facility] [place] Comment on above: Performed By: #### F T3, BMP, LIPID, TSH, LIVER #### [facility] [address] [address] [address] Annalise Sebastian EGFR-AF MONTSERRATIAN >60 Normal >=60 [facility] Comment on above: Performed By: #### F T3, BMP, LIPID, TSH, LIVER #### [facility] [address] [address] [address] Annalise Sebastian EGFR-NON AF MON[place]ERRATIAN 52 mL/min/1.73m2 Critically low >=60 [facility] [place] Comment on above: Performed By: #### F T3, BMP, LIPID, TSH, LIVER #### [facility] [address] [address] [address] Annalise Sebastian Glucose [Mass/Vol] 91 mg/dL Normal 74-106 [facility] Comment on above: Performed By: #### F T3, BMP, LIPID, TSH, LIVER #### [facility] [address] [place] [address] Dr. Annalise Sebastian Potassium [Moles/Vol] 3.7 mmol/L Normal 3.4-5.0 [facility] Comment on above: Performed By: #### F T3, BMP, LIPID, TSH, LIVER #### [facility] [address] [place] [address] Dr. Annalise Sebastian Sodium [Moles/Vol] 138 mmol/L Normal 137-145 [facility] Comment on above: Performed By: #### F T3, BMP, LIPID, TSH, LIVER #### [facility] [address] [address] [address] Annalise Sebastian Urea nitrogen [Mass/Vol] 7.0 mg/dL Normal 7.0-17.0 [facility] Comment on above: Performed By: #### F T3, BMP, LIPID, TSH, LIVER #### [facility] [address] [place] [address] Dr. Annalise Sebastian Urea nitrogen/Creatinine [Mass ratio] 6.5 mg/mg Normal [facility] Comment on above: Performed By: #### F T3, BMP, LIPID, TSH, LIVER #### [facility] [address] [place], [place] [address] Dr. Annalise Sebastian TSHon 09-27-2021 TSH 1.680 uIU/mL Normal 0.470-4.680 [facility] Comment on above: Performed By: #### L IVER, TSH, LIPID, FT3, BMP #### [facility] [address] [place], [place] [address] Dr. Annalise Sebastian TSH RANGE SEE BELOW Normal [facility] Comment on above: Result Comment: <0.3 4 UIU/ml HYPERTHYROID 0.34-5.60 UIU/ml EUTHYROID >5.60 UIU/ml HYPOTHYROID Performed By: #### L IVER, TSH, LIPID, FT3, BMP #### [facility] [address] [place], [place] [address] Dr. Annalise Sebastian Encounters Encounter Date Encounter Type Care Provider Facility Start: 02-18-2024 End: 02-19-2024 ambulatory JELANI CORRALES Not Available Start: 02-12-2024 End: 02-12-2024 ambulatory ANTHONY BOJORQUEZ Not Available Start: 09-04-2022 End: 09-05-[address] ANTHONY BOJORQUEZ Facility:[facility] Start: 04-20-2022 End: 04-21-[address] ANTHONY BOJORQUEZ Facility:[facility] Start: 09-27-2021 End: 09-28-[address] ANTHONY BOJORQUEZ Facility:[facility] Start: 10-17-2017 End: 10-18-2017 Ambulatory DEFAULT PHYSICIAN Facility:[facility] Start: 08-10-2017 End: 08-11-2017 Ambulatory DEFAULT PHYSICIAN Facility:[facility] Payers Date Payer Category Payer Unknown [id number] 1960 Unknown [id number] 2.16.84 [id number] 1960 Unknown [id number] 2.16.84 [id number] 1960 Unknown [id number] 2.16.84 [id number] 1960 Unknown [id number] 2.16.84 [id number] 1960 Unknown [id number] 2.16.84 [id number] Unknown Summary Purpose Family History No Family History Records FoundNo Family History Records FoundNo Family History Records Found Advance Directives No Advanced Directives Records FoundNo Advanced Directives Records FoundNo Advanced Directives Records Found Additional Source Comments INFORMATION SOURCE (unrecogn ized section and content) DATE CREATED AUTHOR 04/23/[address] [facility] DATE CREATED AUTHOR AUTHOR'S ORGANIZ ATION 09/09/2022 [facility] DATE CREATED AUTHOR AUTHOR'S ORGANIZ ATION 02/23/2024 [facility] FOR RECORDS PERTAINING TO PATIENTS WHO ARE OR HAVE BEEN ENROLLED IN A CHEMICAL DEPENDENCY/SUBSTANCEABUSE PROGRAM, SOME INFORMATION MAY BE OMITTED. This clinical summary was aggregated from multiple sources. Caution should be exercised in using it in the provision of clinical care. This summary normalizes information from multiple sources, and as a consequence, information in this document may materially change the coding, format and clinical context of patient data. In addition, data may be omitted in some cases. CLINICAL DECISIONS SHOULD BE BASED ON THE PRIMARY CLINICAL RECORDS. [facility]. provides no warranty or guarantee of the accuracy or completeness of information in this document.
--- OUTSIDE RECORDS SUMMARY | 2024-03-13 07:13 | XMS_ITS | CCD ---
Author Organization [facility] Care Team Providers Care Inventory Accountant Name Role Phone PHYSICIAN, DEFAULT Unavailable Unavailable [...] (1 source) Ciprofloxacin Drug Allergy 07-25-2017 [facility] Repository (1 source) Penicillin Drug Allergy 07-25-2017 [facility] Repository (1 source) Sulfonamides (Antibiotic) Drug allergy (disorder) 07-25-2017 [facility] Repository Problems Active Problems Problem Classification Problem Date Documented Date Episodic/Chronic Coronary atherosclerosis and other heart disease (1 source) Atherosclerotic heart disease of [place] coronary artery without angina pectoris; Translations: [ASHD [place] W/O ANGINA PECTORIS] Onset: 10-01-2021 Chronic Disorders of lipid metabolism (1 source) Hyperlipidemia, unspecified; Translations: [HYPERLIPIDEMIA UNSPECIFIED] Onset: 09-09-2022 Chronic Essential hypertension (5 sources) Essential (primary) hypertension; Translations: [ESSENTIAL PRIMARY HYPERTENSION] Onset: 09-27-2021 Chronic Other aftercare (1 source) Other prison (current) drug therapy; Translations: [OTH [facility] CURRENT DRUG THERAPY] Onset: 09-09-2022 Episodic Thyroid [...] 09-04-2022 BASO # 0.0 103/ul Normal 0.0-0.1 [facility] Comment on above: Performed By: #### L IVER, TSH, LIPID, FT3, BMP #### [facility] [address] [place] [address] Dr. Annalise Sebastian Basophils/100 WBC (Bld) 0.6 % Normal 0.2-2.0 [facility] Comment on above: Performed By: #### L IVER, TSH, LIPID, FT3, BMP #### [facility] [address] [place] [address] Dr. Annalise Sebastian EO # 0.1 103/ul Normal 0.0-0.7 [facility] Comment on above: Performed By: #### L IVER, TSH, LIPID, FT3, BMP #### [facility] [address] [place] [address] Dr. Annalise Sebastian Eosinophils/100 WBC (Bld) 1.7 % Normal 0.9-7.0 [facility] Comment on above: Performed By: #### L IVER, TSH, LIPID, FT3, BMP #### [facility] [address] [place] [address] Dr. Annalise Sebastian Erythrocyte distribution width (RBC) [Ratio] 13.3 % Normal 11.0-15.0 [facility] Comment on above: Performed By: #### L IVER, TSH, LIPID, FT3, BMP #### [facility] [address] [place] [address] Dr. Annalise Sebastian Hematocrit (Bld) [Volume fraction] 42.5 % Normal 36.0-48.0 [facility] Comment on above: Performed By: #### L IVER, TSH, LIPID, FT3, BMP #### [facility] [address] [place] [address] Dr. Annalise Sebastian Hemoglobin (Bld) [Mass/Vol] 14.2 g/dL Normal 12.0-16.0 [facility] Comment on above: Performed By: #### L IVER, TSH, LIPID, FT3, BMP #### [facility] [address] [place] [address] Dr. Annalise Sebastian IG # 0.02 10e3/ul Normal 0.00-0.03 [facility] Comment on above: Performed By: #### L IVER, TSH, LIPID, FT3, BMP #### [facility] [address] [place] [address] Dr. Annalise Sebastian IG % 0.3 % Normal 0.0-0.5 [facility] Comment on above: Performed By: #### L IVER, TSH, LIPID, FT3, BMP #### [facility] [address] [place] [address] Dr. Annalise Sebastian LYMPH # 1.4 103/ul Normal 1.2-3.8 [facility] Comment on above: Performed By: #### L IVER, TSH, LIPID, FT3, BMP #### [facility] [address] [place] [address] Dr. Annalise Sebastian Lymphocytes/100 WBC (Bld) 20.0 % Critically low 20.5-60.0 [facility] Comment on above: Performed By: #### L IVER, TSH, LIPID, FT3, BMP #### [facility] [address] [place] [address] Dr. Annalise Sebastian MANUAL DIFF REQ NO Normal [facility] Comment on above: Performed By: #### L IVER, TSH, LIPID, FT3, BMP #### [facility] [address] [place] [address] Dr. Annalise Sebastian MCH (RBC) [Entitic mass] 27.5 pg Normal 26.7-34.0 [facility] Comment on above: Performed By: #### L IVER, TSH, LIPID, FT3, BMP #### [facility] [address] [place] [address] Dr. Annalise Sebastian MCHC (RBC) [Mass/Vol] 33.4 g/dL Normal 29.9-35.2 [facility] Comment on above: Performed By: #### L IVER, TSH, LIPID, FT3, BMP #### [facility] [address] [place] [address] Dr. Annalise Sebastian MCV (RBC) [Entitic vol] 82.4 fL Normal 81.0-99.0 [facility] Comment on above: Performed By: #### L IVER, TSH, LIPID, FT3, BMP #### [facility] [address] [place] [address] Dr. Annalise Sebastian MONO # 0.6 103/ul Normal 0.3-0.8 [facility] Comment on above: Performed By: #### L IVER, TSH, LIPID, FT3, BMP #### [facility] [address] [place] [address] Dr. Annalise Sebastian Monocytes/100 WBC (Bld) 8.1 % Normal 1.7-12.0 [facility] Comment on above: Performed By: #### L IVER, TSH, LIPID, FT3, BMP #### [facility] [address] [place] [address] Dr. Annalise Sebastian NEUT # 4.8 103/ul Normal 1.4-6.5 [facility] Comment on above: Performed By: #### L IVER, TSH, LIPID, FT3, BMP #### [facility] [address] [place] [address] Dr. Annalise Sebastian Neutrophils/100 WBC (Bld) 69.3 % Normal 43.0-75.0 [facility] Comment on above: Performed By: #### L IVER, TSH, LIPID, FT3, BMP #### [facility] [address] [place] [address] Dr. Annalise Sebastian Platelet mean volume (Bld) [Entitic vol] 9.7 fL Normal 9.5-13.5 [facility] Comment on above: Performed By: #### L IVER, TSH, LIPID, FT3, BMP #### [facility] [address] [place] [address] Dr. Annalise Sebastian PLT 290 103/ul Normal 150-450 [facility] Comment on above: Performed By: #### L IVER, TSH, LIPID, FT3, BMP #### [facility] [address] [place] [address] Dr. Annalise Sebastian RBC 5.16 106/ul Normal 4.20-5.40 [facility] Comment on above: Performed By: #### L IVER, TSH, LIPID, FT3, BMP #### [facility] [address] [place] [address] Dr. Annalise Sebastian WBC 6.9 103/ul Normal 4.0-11.0 [facility] Comment on above: Performed By: #### L IVER, TSH, LIPID, FT3, BMP #### [facility] [address] [place] [address] Dr. Annalise Sebastian FREE T3on 09-04-2022 FREE T3 2.68 pg/mlL Normal 2.18-3.98 [facility] Comment on above: Performed By: #### L IVER, TSH, LIPID, FT3, BMP #### [facility] [address] [place] [address] Dr. Annalise Sebastian FREE T4on 09-04-2022 Free T4 [Mass/Vol] 1.06 ng/dL Normal 0.76-1.46 [facility] Comment on above: Performed By: #### L IVER, TSH, LIPID, FT3, BMP #### [facility] [address] [place] [address] Dr. Annalise Sebastian LIPID PROFILEon 09-04-2022 CHOL-HDL RATIO NORM SEE BELOW Normal [facility] Comment on above: Result Comment: 3.3 - 4.4 LOW RISK 4.4 - 7.1 AVERAGE RISK 7.1 - 11.0 MODERATE RISK >11.0 HIGH RISK Performed By: #### L IVER, TSH, LIPID, FT3, BMP #### [facility] [address] [place] [address] Dr. Annalise Sebastian Cholesterol [Mass/Vol] 170 mg/dL Normal <=200 [facility] Comment on above: Performed By: #### L IVER, TSH, LIPID, FT3, BMP #### [facility] [address] [address] [address] Annalise Sebastian Cholesterol in HDL [Mass/Vol] 36 mg/dL Critically low 40-60 [facility] Comment on above: Performed By: #### L IVER, TSH, LIPID, FT3, BMP #### [facility] [address] [place] [address] Dr. Annalise Sebastian Cholesterol in LDL [Mass/Vol] 85.2 mg/dL Normal [facility] Comment on above: Performed By: #### L IVER, TSH, LIPID, FT3, BMP #### [facility] [address] [place] [address] Dr. Annalise Sebastian Cholesterol.total/C holesterol in HDL [Mass ratio] 4.7 {ratio} Normal [facility] Comment on above: Performed By: #### L IVER, TSH, LIPID, FT3, BMP #### [facility] [address] [place] [address] Dr. Annalise Sebastian HDL NORMAL > or = 60 mg/dl - LO W CARDIOVASCULAR RISK <40 mg/dl - HIGH CARDIOVASCULAR RISK Normal [facility] Comment on above: Performed By: #### L IVER, TSH, LIPID, FT3, BMP #### [facility] [address] [place] [address] Dr. Annalise Sebastian LDL CALC NORMAL SEE BELOW Normal [facility] Comment on above: Result Comment: <100 mg/dl OPTIMAL 100 - 129 mg/dl NEAR OR ABOVE OPTIMAL 130 - 159 mg/dl BORDERLINE HIGH 160 - 189 mg/dl HIGH >190 mg/dl VERY HIGH Performed By: #### L IVER, TSH, LIPID, FT3, BMP #### [facility] [address] [place] [address] Dr. Annalise Sebastian Triglyceride [Mass/Vol] 244 mg/dL Critically high <=150 [facility] Comment on above: Performed By: #### L IVER, TSH, LIPID, FT3, BMP #### [facility] [address] [place] [address] Dr. Annalise Sebastian VLDL CALC 48.8 mg/dL Normal [facility] Comment on above: Performed By: #### L IVER, TSH, LIPID, FT3, BMP #### [facility] [address] [address] [address] Annalise Sebastian LIVER PROFILEon 09-04-2022 Albumin [Mass/Vol] 3.7 g/dL Normal 3.4-5.0 [facility] Comment on above: Performed By: #### L IVER, TSH, LIPID, FT3, BMP #### [facility] [address] [place] [address] Dr. Annalise Sebastian Albumin/Globulin [Mass ratio] 1.0 {ratio} Normal [facility] Comment on above: Performed By: #### L IVER, TSH, LIPID, FT3, BMP #### [facility] [address] [place] [address] Dr. Annalise Sebastian ALP [Catalytic activity/Vol] 75 U/L Normal 46-116 [facility] Comment on above: Performed By: #### L IVER, TSH, LIPID, FT3, BMP #### [facility] [address] [place] [address] Dr. Annalise Sebastian ALT [Catalytic activity/Vol] 39 U/L Normal 14-59 [facility] Comment on above: Performed By: #### L IVER, TSH, LIPID, FT3, BMP #### [facility] [address] [place] [address] Dr. Annalise Sebastian AST [Catalytic activity/Vol] 30 U/L Normal 15-37 [facility] Comment on above: Performed By: #### L IVER, TSH, LIPID, FT3, BMP #### [facility] [address] [place] [address] Dr. Annalise Sebastian BILI, CONJUGATED 0.1 mg/dL Normal 0.0-0.2 [facility] Comment on above: Performed By: #### L IVER, TSH, LIPID, FT3, BMP #### [facility] [address] [place] [address] Dr. Annalise Sebastian Bilirubin [Mass/Vol] 0.3 mg/dL Normal 0.2-1.0 [facility] Comment on above: Performed By: #### L IVER, TSH, LIPID, FT3, BMP #### [facility] [address] [place] [address] Dr. Annalise Sebastian Globulin (S) [Mass/Vol] 3.6 g/dL Normal [facility] Comment on above: Performed By: #### L IVER, TSH, LIPID, FT3, BMP #### [facility] [address] [place] [address] Dr. Annalise Sebastian Protein [Mass/Vol] 7.3 g/dL Normal 6.4-8.2 [facility] Comment on above: Performed By: #### L IVER, TSH, LIPID, FT3, BMP #### [facility] [address] [place] [address] Dr. Annalise Sebastian PROF CHEM 8 (BAS METB)on Anion gap [Moles/Vol] 9.4 mmol/L Normal [facility] Comment on above: Performed By: #### L IVER, TSH, LIPID, FT3, BMP #### [facility] [address] [place] [address] Dr. Annalise Sebastian Calcium [Mass/Vol] 9.3 mg/dL Normal 8.5-10.1 [facility] Comment on above: Performed By: #### L IVER, TSH, LIPID, FT3, BMP #### [facility] [address] [place] [address] Dr. Annalise Sebastian Chloride [Moles/Vol] 102 mmol/L Normal 98-107 [facility] Comment on above: Performed By: #### L IVER, TSH, LIPID, FT3, BMP #### [facility] [address] [place] [address] Dr. Annalise Sebastian CO2 [Moles/Vol] 29.1 mmol/L Normal 21.0-32.0 [facility] Comment on above: Performed By: #### L IVER, TSH, LIPID, FT3, BMP #### [facility] [address] [address] [address] Annalise Sebastian Creatinine [Mass/Vol] 1.01 mg/dL Normal 0.55-1.02 [facility] Comment on above: Performed By: #### L IVER, TSH, LIPID, FT3, BMP #### [facility] [address] [place] [address] Dr. Annalise Sebastian EGFR-AF ICELANDIC >60 Normal >=60 [facility] Comment on above: Performed By: #### L IVER, TSH, LIPID, FT3, BMP #### [facility] [address] [place] [address] Dr. Annalise Sebastian EGFR-NON AF ICELANDIC 56 mL/min/1.73m2 Critically low >=60 [facility] Comment on above: Performed By: #### L IVER, TSH, LIPID, FT3, BMP #### [facility] [address] [place] [address] Dr. Annalise Sebastian Glucose [Mass/Vol] 115 mg/dL Critically high 74-106 [facility] Comment on above: Performed By: #### L IVER, TSH, LIPID, FT3, BMP #### [facility] [address] [place] [address] Dr. Annalise Sebastian Potassium [Moles/Vol] 3.5 mmol/L Normal 3.5-5.1 [facility] Comment on above: Performed By: #### L IVER, TSH, LIPID, FT3, BMP #### [facility] [address] [address] [address] Annalise Sebastian Sodium [Moles/Vol] 137 mmol/L Normal 136-145 [facility] Comment on above: Performed By: #### L IVER, TSH, LIPID, FT3, BMP #### [facility] [address] [place] [address] Dr. Annalise Sebastian Urea nitrogen [Mass/Vol] 12.0 mg/dL Normal 7.0-18.0 [facility] Comment on above: Performed By: #### L IVER, TSH, LIPID, FT3, BMP #### [facility] [address] [address] [address] Annalise Sebastian Urea nitrogen/Creatinine [Mass ratio] 11.9 mg/mg Normal [facility] Comment on above: Performed By: #### L IVER, TSH, LIPID, FT3, BMP #### [facility] [address] [address] [address] Annalise Sebastian TSHon 09-04-2022 TSH 1.347 uIU/mL Normal 0.358-3.740 [facility] Comment on above: Performed By: #### L IVER, TSH, LIPID, FT3, BMP #### [facility] [address] [address] [address] Annalise Sebastian US CHESTon 04-21-2022 US [...] SEBASTIAN MIKE Date: 2022-04-21 17:34 Normal [facility] CBC AUTO DIFFon 09-27-2021 BASO # 0.0 103/ul Normal 0.0-0.1 [facility] Comment on above: Performed By: #### C BC #### [facility] [address] [place] [address] Dr. Annalise Sebastian Basophils/100 WBC (Bld) 0.5 % Normal 0.2-2.0 [facility] Comment on above: Performed By: #### C BC #### [facility] [address] [place] [address] Dr. Annalise Sebastian EO # 0.2 103/ul Normal 0.0-0.7 [facility] Comment on above: Performed By: #### C BC #### [facility] [address] [place] [address] Dr. Annalise Sebastian Eosinophils/100 WBC (Bld) 1.9 % Normal 0.9-7.0 [facility] Comment on above: Performed By: #### C BC #### [facility] [address] [place] [address] Dr. Annalise Sebastian Erythrocyte distribution width (RBC) [Ratio] 13.3 % Normal 11.0-15.0 [facility] Comment on above: Performed By: #### C BC #### [facility] [address] [place] [address] Dr. Annalise Sebastian Hematocrit (Bld) [Volume fraction] 40.9 % Normal 36.0-48.0 [facility] Comment on above: Performed By: #### C BC #### [facility] [address] [place] [address] Dr. Annalise Sebastian Hemoglobin (Bld) [Mass/Vol] 12.9 g/dL Normal 12.0-16.0 [facility] Comment on above: Performed By: #### C BC #### [facility] [address] [place] [address] Dr. Annalise Sebastian IG # 0.02 10e3/ul Normal 0.00-0.03 [facility] Comment on above: Performed By: #### C BC #### [facility] [address] [place] [address] Dr. Annalise Sebastian IG % 0.2 % Normal 0.0-0.5 [facility] Comment on above: Performed By: #### C BC #### [facility] [address] [place] [address] Dr. Annalise Sebastian LYMPH # 1.8 103/ul Normal 1.2-3.8 [facility] Comment on above: Performed By: #### C BC #### [facility] [address] [place] [address] Dr. Annalise Sebastian Lymphocytes/100 WBC (Bld) 21.0 % Normal 20.5-60.0 [facility] Comment on above: Performed By: #### C BC #### [facility] [address] [place] [address] Dr. Annalise Sebastian MANUAL DIFF REQ NO Normal [facility] Comment on above: Performed By: #### C BC #### [facility] [address] [address] [address] Annalise Sebastian MCH (RBC) [Entitic mass] 26.9 pg Normal 26.7-34.0 [facility] Comment on above: Performed By: #### C BC #### [facility] [address] [place] [address] Dr. Annalise Sebastian MCHC (RBC) [Mass/Vol] 31.5 g/dL Normal 29.9-35.2 [facility] Comment on above: Performed By: #### C BC #### [facility] [address] [place] [address] Dr. Annalise Sebastian MCV (RBC) [Entitic vol] 85.4 fL Normal 81.0-99.0 [facility] Comment on above: Performed By: #### C BC #### [facility] [address] [place] [address] Dr. Annalise Sebastian MONO # 0.6 103/ul Normal 0.3-0.8 [facility] Comment on above: Performed By: #### C BC #### [facility] [address] [place] [address] Dr. Annalise Sebastian Monocytes/100 WBC (Bld) 7.7 % Normal 1.7-12.0 [facility] Comment on above: Performed By: #### C BC #### [facility] [address] [place] [address] Dr. Annalise Sebastian NEUT # 5.7 103/ul Normal 1.4-6.5 [facility] Comment on above: Performed By: #### C BC #### [facility] [address] [place] [address] Dr. Annalise Sebastian Neutrophils/100 WBC (Bld) 68.7 % Normal 43.0-75.0 [facility] Comment on above: Performed By: #### C BC #### [facility] [address] [place] [address] Dr. Annalise Sebastian Platelet mean volume (Bld) [Entitic vol] 10.0 fL Normal 9.5-13.5 [facility] Comment on above: Performed By: #### C BC #### [facility] [address] [address] [address] Annalise Sebastian PLT 355 103/ul Normal 150-450 [facility] Comment on above: Performed By: #### C BC #### [facility] [address] [address] [address] Annalise Sebastian RBC 4.79 106/ul Normal 4.20-5.40 [facility] Comment on above: Performed By: #### C BC #### [facility] [address] [place] [address] Dr. Annalise Sebastian WBC 8.3 103/ul Normal 4.0-11.0 [facility] Comment on above: Performed By: #### C BC #### [facility] [address] [place] [address] Dr. Annalise Sebastian FREE T3on 09-27-2021 FREE T3 2.77 pg/mlL Normal 2.77-5.27 [facility] Comment on above: Performed By: #### F T3, BMP, LIPID, TSH, LIVER #### [facility] [address] [place] [address] Dr. Annalise Sebastian FREE T4on 09-27-2021 Free T4 [Mass/Vol] 1.29 ng/dL Normal 0.78-2.19 [facility] Comment on above: Performed By: #### L IVER, TSH, LIPID, FT3, BMP #### [facility] [address] [place] [address] Dr. Annalise Sebastian LIPID PROFILEon 09-27-2021 CHOL-HDL RATIO NORM SEE BELOW Normal [facility] Comment on above: Result Comment: 3.3 - 4.4 LOW RISK 4.4 - 7.1 AVERAGE RISK 7.1 - 11.0 MODERATE RISK >11.0 HIGH RISK Performed By: #### L IVER, TSH, LIPID, FT3, BMP #### [facility] [address] [place] [address] Dr. Annalise Sebastian Cholesterol [Mass/Vol] 148 mg/dL Normal <=200 [facility] Comment on above: Performed By: #### L IVER, TSH, LIPID, FT3, BMP #### [facility] [address] [address] [address] Annalise Sebastian Cholesterol in HDL [Mass/Vol] 36 mg/dL Normal [facility] Comment on above: Performed By: #### L IVER, TSH, LIPID, FT3, BMP #### [facility] [address] [address] [address] Annalise Sebastian Cholesterol in LDL [Mass/Vol] 59.8 mg/dL Normal [facility] Comment on above: Performed By: #### L IVER, TSH, LIPID, FT3, BMP #### [facility] Laboratory [address] [address] [address] Annalise Sebastian Cholesterol.total/C holesterol in HDL [Mass ratio] 4.1 {ratio} Normal [facility] Comment on above: Performed By: #### L IVER, TSH, LIPID, FT3, BMP #### [facility] [address] [address] [address] Annalise Sebastian HDL NORMAL > or = 60 mg/dl - LO W CARDIOVASCULAR RISK <40 mg/dl - HIGH CARDIOVASCULAR RISK Normal [facility] Comment on above: Performed By: #### L IVER, TSH, LIPID, FT3, BMP #### [facility] [address] [address] [address] Annalise Sebastian LDL CALC NORMAL SEE BELOW Normal [facility] Comment on above: Result Comment: <100 mg/dl OPTIMAL 100 - 129 mg/dl NEAR OR ABOVE OPTIMAL 130 - 159 mg/dl BORDERLINE HIGH 160 - 189 mg/dl HIGH >190 mg/dl VERY HIGH Performed By: #### L IVER, TSH, LIPID, FT3, BMP #### [facility] [address] [address] [address] Annalise Sebastian Triglyceride [Mass/Vol] 261 mg/dL Critically high <=150 [facility] Comment on above: Performed By: #### L IVER, TSH, LIPID, FT3, BMP #### [facility] [address] [address] [address] Annalise Sebastian VLDL CALC 52.2 mg/dL Normal [facility] Comment on above: Performed By: #### L IVER, TSH, LIPID, FT3, BMP #### [facility] [address] [place] [address] Dr. Annalise Sebastian LIVER PROFILEon 09-27-2021 Albumin [Mass/Vol] 3.8 g/dL Normal 3.5-5.0 [facility] Comment on above: Performed By: #### F T3, BMP, LIPID, TSH, LIVER #### [facility] [address] [place] [address] Dr. Annalise Sebastian Albumin/Globulin [Mass ratio] 1.0 {ratio} Normal [facility] Comment on above: Performed By: #### F T3, BMP, LIPID, TSH, LIVER #### [facility] [address] [place] [address] Dr. Annalise Sebastian ALP [Catalytic activity/Vol] 65 U/L Normal 38-126 [facility] Comment on above: Performed By: #### F T3, BMP, LIPID, TSH, LIVER #### [facility] [address] [place] [address] Dr. Annalise Sebastian ALT [Catalytic activity/Vol] 29 U/L Normal 9-52 [facility] Comment on above: Performed By: #### F T3, BMP, LIPID, TSH, LIVER #### [facility] [address] [place] [address] Dr. Annalise Sebastian AST [Catalytic activity/Vol] 24 U/L Normal 14-36 [facility] Comment on above: Performed By: #### F T3, BMP, LIPID, TSH, LIVER #### [facility] [address] [place] [address] Dr. Annalise Sebastian BILI, CONJUGATED 0.1 mg/dL Normal 0.0-0.3 [facility] Comment on above: Performed By: #### F T3, BMP, LIPID, TSH, LIVER #### [facility] [address] [place] [address] Dr. Annalise Sebastian Bilirubin [Mass/Vol] 0.3 mg/dL Normal 0.2-1.3 [facility] Comment on above: Performed By: #### F T3, BMP, LIPID, TSH, LIVER #### [facility] [address] [place] [address] Dr. Annalise Sebastian Globulin (S) [Mass/Vol] 3.9 g/dL Normal [facility] Comment on above: Performed By: #### F T3, BMP, LIPID, TSH, LIVER #### [facility] [address] [place] [address] Dr. Annalise Sebastian Protein [Mass/Vol] 7.7 g/dL Normal 6.1-8.2 [facility] Comment on above: Performed By: #### F T3, BMP, LIPID, TSH, LIVER #### [facility] [address] [place] [address] Dr. Annalise Sebastian PROF CHEM 8 (BAS METB)on Anion gap [Moles/Vol] 10.8 mmol/L Normal [facility] Comment on above: Performed By: #### F T3, BMP, LIPID, TSH, LIVER #### [facility] [address] [place] [address] Dr. Annalise Sebastian Calcium [Mass/Vol] 9.5 mg/dL Normal 8.4-10.2 [facility] Comment on above: Performed By: #### F T3, BMP, LIPID, TSH, LIVER #### [facility] [address] [place] [address] Dr. Annalise Sebastian Chloride [Moles/Vol] 101 mmol/L Normal 98-107 [facility] Comment on above: Performed By: #### F T3, BMP, LIPID, TSH, LIVER #### [facility] [address] [place] [address] Dr. Annalise Sebastian CO2 [Moles/Vol] 29.9 mmol/L Normal 22.0-30.0 [facility] Comment on above: Performed By: #### F T3, BMP, LIPID, TSH, LIVER #### [facility] [address] [place] [address] Dr. Annalise Sebastian Creatinine [Mass/Vol] 1.08 mg/dL Critically high 0.52-1.04 [facility] Comment on above: Performed By: #### F T3, BMP, LIPID, TSH, LIVER #### [facility] [address] [address] [address] Annalise Sebastian EGFR-AF ICELANDIC >60 Normal >=60 [facility] Comment on above: Performed By: #### F T3, BMP, LIPID, TSH, LIVER #### [facility] [address] [address] [address] Annalise Sebastian EGFR-NON AF ICELANDIC 52 mL/min/1.73m2 Critically low >=60 [facility] Comment on above: Performed By: #### F T3, BMP, LIPID, TSH, LIVER #### [facility] [address] [address] [address] Annalise Sebastian Glucose [Mass/Vol] 91 mg/dL Normal 74-106 [facility] Comment on above: Performed By: #### F T3, BMP, LIPID, TSH, LIVER #### [facility] [address] [place] [address] Dr. Annalise Sebastian Potassium [Moles/Vol] 3.7 mmol/L Normal 3.4-5.0 [facility] Comment on above: Performed By: #### F T3, BMP, LIPID, TSH, LIVER #### [facility] [address] [place] [address] Dr. Annalise Sebastian Sodium [Moles/Vol] 138 mmol/L Normal 137-145 [facility] Comment on above: Performed By: #### F T3, BMP, LIPID, TSH, LIVER #### [facility] [address] [address] [address] Annalise Sebastian Urea nitrogen [Mass/Vol] 7.0 mg/dL Normal 7.0-17.0 [facility] Comment on above: Performed By: #### F T3, BMP, LIPID, TSH, LIVER #### [facility] [address] [place] [address] Dr. Annalise Sebastian Urea nitrogen/Creatinine [Mass ratio] 6.5 mg/mg Normal [facility] Comment on above: Performed By: #### F T3, BMP, LIPID, TSH, LIVER #### [facility] [address] [place], [place] [address] Dr. Annalise Sebastian TSHon 09-27-2021 TSH 1.680 uIU/mL Normal 0.470-4.680 [facility] Comment on above: Performed By: #### L IVER, TSH, LIPID, FT3, BMP #### [facility] [address] [place], [place] [address] Dr. Annalise Sebastian TSH RANGE SEE BELOW Normal [facility] Comment on above: Result Comment: <0.3 4 UIU/ml HYPERTHYROID 0.34-5.60 UIU/ml EUTHYROID >5.60 UIU/ml HYPOTHYROID Performed By: #### L IVER, TSH, LIPID, FT3, BMP #### [facility] [address] [place], [place] [address] Dr. Annalise Sebastian Encounters Encounter Date Encounter Type Care Provider Facility Start: 02-18-2024 End: 02-19-2024 ambulatory JELANI CORRALES Not Available Start: 02-12-2024 End: 02-12-2024 ambulatory ANTHONY BOJORQUEZ Not Available Start: 09-04-2022 End: 09-05-[address] ANTHONY BOJORQUEZ Facility:[facility] Start: 04-20-2022 End: 04-21-[address] ANTHONY BOJORQUEZ Facility:[facility] Start: 09-27-2021 End: 09-28-[address] ANTHONY BOJORQUEZ Facility:[facility] Start: 10-17-2017 End: 10-18-2017 Ambulatory DEFAULT PHYSICIAN Facility:[facility] Start: 08-10-2017 End: 08-11-2017 Ambulatory DEFAULT PHYSICIAN Facility:[facility] Payers Date Payer Category Payer Unknown [id number] 1960 Unknown [id number] 2.16.84 [id number] 1960 Unknown [id number] 2.16.84 [id number] 1960 Unknown [id number] 2.16.84 [id number] 1960 Unknown [id number] 2.16.84 [id number] 1960 Unknown [id number] 2.16.84 [id number] Unknown Summary Purpose Family History No Family History Records FoundNo Family History Records FoundNo Family History Records Found Advance Directives No Advanced Directives Records FoundNo Advanced Directives Records FoundNo Advanced Directives Records Found Additional Source Comments INFORMATION SOURCE (unrecogn ized section and content) DATE CREATED AUTHOR 04/23/2018 [facility] DATE CREATED AUTHOR AUTHOR'S ORGANIZ ATION 09/09/2022 [facility] DATE CREATED AUTHOR AUTHOR'S ORGANIZ ATION 02/23/2024 [facility] FOR RECORDS PERTAINING TO PATIENTS WHO ARE [...] BE BASED ON THE PRIMARY CLINICAL RECORDS. [facility] [employer] [facility]. provides no warranty or guarantee of the accuracy or completeness of information in this document.
[2024-03-13 07:36] LABS: Basophils Percent Auto 0.4 % (0.2-2.0); Eosinophils Absolute Auto 0.1 10^3/uL (0.0-0.7); Eosinophils Percent Auto 2.2 % (0.9-7.0); Hematocrit 41.6 % (36.0-48.0); Hemoglobin 13.4 g/dL (12.0-16.0); Immature Granulocytes Abs Auto 0.01 10^3/uL (0.00-0.03); Immature Granulocytes Pct Auto 0.2 % (0.0-0.5); Lymphocytes Absolute Auto 2.1 10^3/uL (1.2-3.8); Lymphocytes Percent Auto 38.5 % (20.5-60.0); Mean Corpuscular HGB Conc 32.2 g/dL (29.9-35.2); Mean Corpuscular Hemoglobin 27.8 pg (26.7-34.0); Mean Corpuscular Volume 86.3 fL (81.0-99.0); Mean Platelet Volume 9.1 fL (9.5-13.5); Monocytes Absolute Auto 0.4 10^3/uL (0.3-0.8); Monocytes Percent Auto 8.1 % (1.7-12.0); Neutrophils Absolute Auto 2.8 10^3/uL (1.4-6.5); Neutrophils Percent Auto 50.6 % (43.0-75.0); Platelet Count 289 10^3/uL (150-450); Red Blood Count 4.82 10^6/uL (4.20-5.40); Red Cell Distribution Width 13.5 % (11.0-15.0); White Blood Count 5.5 10^3/uL (4.0-11.0)
[2024-03-13 08:00] LABS: Estimated Average Glucose 114 mg/dL; Glycohemoglobin A1C 5.6 % (4.5-6.2)
[2024-03-13 08:19] LABS: Alanine Aminotransferase 55 U/L (14-59); Albumin Level 3.4 g/dL (3.4-5.0); Alkaline Phosphatase 50 U/L (46-116); Anion Gap 10.7; Aspartate Amino Transferase 35 U/L (15-37); BUN Creatinine Ratio 9.3; Bilirubin Direct 0.1 mg/dL (0.0-0.2); Bilirubin Total 0.4 mg/dL (0.2-1.0); Calcium 9.2 mg/dL (8.5-10.1); Carbon Dioxide 32.1 mmol/L (21.0-32.0); Chloride 101 mmol/L (98-107); Chol HDL Ratio 4.4; Cholesterol 179 mg/dL (<=200); Estimated GFR (African America >60 (>=60); Estimated GFR (Non-African Ame 58 (>=60); Free T3 3.34 pg/mL (2.18-3.98); Globulin 3.5 g/dL; Glucose 103 mg/dL (74-106); HDL Cholesterol 41 mg/dL (40-60); Potassium 3.8 mmol/L (3.5-5.1); Sodium 140 mmol/L (136-145); Thyroid Stimulating Hormone 3.017 uIU/mL (0.358-3.740); Total Protein 6.9 g/dL (6.4-8.2); Triglycerides 245 mg/dL (<=150)
[2024-03-13 08:59] LABS: Free T4 1.21 ng/dL (0.76-1.46)
== END 2024-03-13 07:12 | disposition home or self-care (01) ==
LOC: LAB 07:11
PROVIDERS: PCP Family Medicine; Visit Provider Family Medicine
DX: E78.5 Hyperlipidemia, unspecified (principal); I10 Essential (primary) hypertension; R73.03 Prediabetes; Z79.899 Other long term (current) drug therapy; E03.9 Hypothyroidism, unspecified
CPT/HCPCS: 36415; 80048; 80061; 80076; 83036; 84439; 84443; 84481; 85025

== ENCOUNTER 2024-05-01 12:34 | Outpatient (OUT) | payer OTHER, SELFPAY ==
--- NOTE | 2024-05-01 | XR_ITS ---
The [address] [address] Patient Name: MAIKOL KNIGHT MRN: [id number] date: 1960 Sex: F Assigned Patient Location: [facility] Current Patient Location: [facility] Accession/Order Number: [id number] Exam Date: 05/01/2024 13:00 Report Date: 05/03/2024 05:47 At the request of: ANTHONY BOJORQUEZ Procedure: XR lumbar spine 2-3V EXAMINATION: XR lumbar spine 2-3V HISTORY: Chronic bilat low back pain with lt sided sciatica M54.42 COMPARISON: XR lumbar spine 05/04/2023 FINDINGS: BONES: Mild left convex curvature lumbar spine. Mild degenerative facet arthropathy L2-L3 through L5-S1. Suspect mild bone encroachment on the L5 neural foramen. DISC SPACES: No significant disc height narrowing, subluxation, or endplate abnormality. PARASPINOUS: Negative. No paraspinous abnormality is seen. OTHER: Negative. XR/XR lumbar spine 2-3V IMPRESSION: 1. Mild levocurvature and multilevel degenerative facet arthropathy with suspected narrowing of the L5-S1 neural foramen. Consider MRI for further evaluation. 2. No appreciable significant disc space narrowing. Electronically authenticated by: SEBASTIAN MIKE Date: 05/03/2024 05:47
--- NOTE | 2024-05-01 | XR_ITS ---
The [address] [address] Patient Name: MAIKOL KNIGHT MRN: [id number] date: 1960 Sex: F Assigned Patient Location: [facility] Current Patient Location: Accession/Order Number: [id number] Exam Date: 05/01/2024 13:00 Report Date: 05/03/2024 05:43 At the request of: ANTHONY BOJORQUEZ Procedure: XR hip LT min 2V PROCEDURE: XR hip LT min 2V HISTORY: Chronic left hip pain M25.552,G89.29 COMPARISON: None. FINDINGS: BONES:No fracture, acute abnormality, or significant arthropathy. SOFT TISSUES:No visible soft tissue swelling. EFFUSION:None visible. OTHER: Negative. XR/XR hip LT min 2V IMPRESSION: 1. No significant degenerative joint disease or suspicious findings of the left hip. Electronically authenticated by: SEBASTIAN MIKE Date: 05/03/2024 05:43
--- OUTSIDE RECORDS SUMMARY | 2024-05-01 12:38 | XMS_ITS | CCD ---
Author Organization [facility] Care Team Providers Care Regulatory Affairs Analyst Name Role Phone PHYSICIAN, DEFAULT Unavailable Unavailable [...] JELANI Attending Unavailable NADERER, ANTHONY Referring Unavailable NADERER, ANTHONY Attending Unavailable Allergies Allergy Classification Reported Allergen(s) Allergy Type Date of Onset Reaction(s) Facility (1 source) Ciprofloxacin Drug Allergy 07-25-2017 [facility] (1 source) Penicillin Drug Allergy 07-25-2017 [facility] (1 source) Sulfonamides (Antibiotic) Drug allergy (disorder) 07-25-2017 [facility] Problems Active Problems Problem Classification Problem Date Documented Date Episodic/Chronic Coronary atherosclerosis and other heart disease (1 source) Atherosclerotic heart disease of [place] coronary artery without angina pectoris; Translations: [ASHD [place] W/O ANGINA PECTORIS] Onset: 10-01-2021 Chronic Disorders of lipid metabolism (1 source) Hyperlipidemia, unspecified; Translations: [HYPERLIPIDEMIA UNSPECIFIED] Onset: 09-09-2022 Chronic Essential hypertension (5 sources) Essential (primary) hypertension; Translations: [ESSENTIAL PRIMARY HYPERTENSION] Onset: 09-27-2021 Chronic Other aftercare (1 source) Other care home (current) drug therapy; Translations: [[employer] CURRENT DRUG THERAPY] Onset: 09-09-2022 Episodic Thyroid [...] 09-04-2022 BASO # 0.0 103/ul Normal 0.0-0.1 [facility] Comment on above: Performed By: #### L IVER, TSH, LIPID, FT3, BMP #### [facility] [address] [place] [address] Dr. Annalise Sebastian Basophils/100 WBC (Bld) 0.6 % Normal 0.2-2.0 [facility] Comment on above: Performed By: #### L IVER, TSH, LIPID, FT3, BMP #### [facility] [address] [place] [address] Dr. Annalise Sebastian EO # 0.1 103/ul Normal 0.0-0.7 [facility] Comment on above: Performed By: #### L IVER, TSH, LIPID, FT3, BMP #### [facility] [address] [place] [address] Dr. Annalise Sebastian Eosinophils/100 WBC (Bld) 1.7 % Normal 0.9-7.0 [facility] Comment on above: Performed By: #### L IVER, TSH, LIPID, FT3, BMP #### [facility] [address] [place] [address] Dr. Annalise Sebastian Erythrocyte distribution width (RBC) [Ratio] 13.3 % Normal 11.0-15.0 [facility] Comment on above: Performed By: #### L IVER, TSH, LIPID, FT3, BMP #### [facility] [address] [place] [address] Dr. Annalise Sebastian Hematocrit (Bld) [Volume fraction] 42.5 % Normal 36.0-48.0 [facility] Comment on above: Performed By: #### L IVER, TSH, LIPID, FT3, BMP #### [facility] [address] [place] [address] Dr. Annalise Sebastian Hemoglobin (Bld) [Mass/Vol] 14.2 g/dL Normal 12.0-16.0 [facility] Comment on above: Performed By: #### L IVER, TSH, LIPID, FT3, BMP #### [facility] [address] [place] [address] Dr. Annalise Sebastian IG # 0.02 10e3/ul Normal 0.00-0.03 [facility] Comment on above: Performed By: #### L IVER, TSH, LIPID, FT3, BMP #### [facility] [address] [place] [address] Dr. Annalise Sebastian IG % 0.3 % Normal 0.0-0.5 [facility] Comment on above: Performed By: #### L IVER, TSH, LIPID, FT3, BMP #### [facility] [address] [place] [address] Dr. Annalise Sebastian LYMPH # 1.4 103/ul Normal 1.2-3.8 [facility] Comment on above: Performed By: #### L IVER, TSH, LIPID, FT3, BMP #### [facility] [address] [place] [address] Dr. Annalise Sebastian Lymphocytes/100 WBC (Bld) 20.0 % Critically low 20.5-60.0 [facility] Comment on above: Performed By: #### L IVER, TSH, LIPID, FT3, BMP #### [facility] [address] [place] [address] Dr. Annalise Sebastian MANUAL DIFF REQ NO Normal [facility] Comment on above: Performed By: #### L IVER, TSH, LIPID, FT3, BMP #### [facility] [address] [place] [address] Dr. Annalise Sebastian MCH (RBC) [Entitic mass] 27.5 pg Normal 26.7-34.0 [facility] Comment on above: Performed By: #### L IVER, TSH, LIPID, FT3, BMP #### [facility] [address] [place] [address] Dr. Annalise Sebastian MCHC (RBC) [Mass/Vol] 33.4 g/dL Normal 29.9-35.2 [facility] Comment on above: Performed By: #### L IVER, TSH, LIPID, FT3, BMP #### [facility] [address] [place] [address] Dr. Annalise Sebastian MCV (RBC) [Entitic vol] 82.4 fL Normal 81.0-99.0 [facility] Comment on above: Performed By: #### L IVER, TSH, LIPID, FT3, BMP #### [facility] [address] [place] [address] Dr. Annalise Sebastian MONO # 0.6 103/ul Normal 0.3-0.8 [facility] Comment on above: Performed By: #### L IVER, TSH, LIPID, FT3, BMP #### [facility] [address] [place] [address] Dr. Annalise Sebastian Monocytes/100 WBC (Bld) 8.1 % Normal 1.7-12.0 [facility] Comment on above: Performed By: #### L IVER, TSH, LIPID, FT3, BMP #### [facility] [address] [place] [address] Dr. Annalise Sebastian NEUT # 4.8 103/ul Normal 1.4-6.5 [facility] Comment on above: Performed By: #### L IVER, TSH, LIPID, FT3, BMP #### [facility] [address] [place] [address] Dr. Annalise Sebastian Neutrophils/100 WBC (Bld) 69.3 % Normal 43.0-75.0 [facility] Comment on above: Performed By: #### L IVER, TSH, LIPID, FT3, BMP #### [facility] [address] [place] [address] Dr. Annalise Sebastian Platelet mean volume (Bld) [Entitic vol] 9.7 fL Normal 9.5-13.5 [facility] Comment on above: Performed By: #### L IVER, TSH, LIPID, FT3, BMP #### [facility] [address] [address] [address] Annalise Sebastian PLT 290 103/ul Normal 150-450 [facility] Comment on above: Performed By: #### L IVER, TSH, LIPID, FT3, BMP #### [facility] [address] [address] [address] Annalise Sebastian RBC 5.16 106/ul Normal 4.20-5.40 [facility] Comment on above: Performed By: #### L IVER, TSH, LIPID, FT3, BMP #### [facility] [address] [place] [address] Dr. Annalise Sebastian WBC 6.9 103/ul Normal 4.0-11.0 [facility] Comment on above: Performed By: #### L IVER, TSH, LIPID, FT3, BMP #### [facility] [address] [place] [address] Dr. Annalise Sebastian FREE T3on 09-04-2022 FREE T3 2.68 pg/mlL Normal 2.18-3.98 [facility] Comment on above: Performed By: #### L IVER, TSH, LIPID, FT3, BMP #### [facility] [address] [place] [address] Dr. Annalise Sebastian FREE T4on 09-04-2022 Free T4 [Mass/Vol] 1.06 ng/dL Normal 0.76-1.46 [facility] Comment on above: Performed By: #### L IVER, TSH, LIPID, FT3, BMP #### [facility] [address] [place] [address] Dr. Annalise Sebastian LIPID PROFILEon 09-04-2022 CHOL-HDL RATIO NORM SEE BELOW Normal [facility] Comment on above: Result Comment: 3.3 - 4.4 LOW RISK 4.4 - 7.1 AVERAGE RISK 7.1 - 11.0 MODERATE RISK >11.0 HIGH RISK Performed By: #### L IVER, TSH, LIPID, FT3, BMP #### [facility] [address] [address] [address] Annalise Sebastian Cholesterol [Mass/Vol] 170 mg/dL Normal <=200 [facility] Comment on above: Performed By: #### L IVER, TSH, LIPID, FT3, BMP #### [facility] [address] [address] [address] Annalise Sebastian Cholesterol in HDL [Mass/Vol] 36 mg/dL Critically low 40-60 [facility] Comment on above: Performed By: #### L IVER, TSH, LIPID, FT3, BMP #### [facility] [address] [address] [address] Annalise Sebastian Cholesterol in LDL [Mass/Vol] 85.2 mg/dL Normal [facility] Comment on above: Performed By: #### L IVER, TSH, LIPID, FT3, BMP #### [facility] [address] [place] [address] Dr. Annalise Sebastian Cholesterol.total/C holesterol in HDL [Mass ratio] 4.7 {ratio} Normal [facility] Comment on above: Performed By: #### L IVER, TSH, LIPID, FT3, BMP #### [facility] [address] [address] [address] Annalise Sebastian HDL NORMAL > or = 60 mg/dl - LO W CARDIOVASCULAR RISK <40 mg/dl - HIGH CARDIOVASCULAR RISK Normal [facility] Comment on above: Performed By: #### L IVER, TSH, LIPID, FT3, BMP #### [facility] [address] [address] [address] Annalise Sebastian LDL CALC NORMAL SEE BELOW Normal [facility] Comment on above: Result Comment: <100 mg/dl OPTIMAL 100 - 129 mg/dl NEAR OR ABOVE OPTIMAL 130 - 159 mg/dl BORDERLINE HIGH 160 - 189 mg/dl HIGH >190 mg/dl VERY HIGH Performed By: #### L IVER, TSH, LIPID, FT3, BMP #### [facility] [address] [address] [address] Annalise Sebastian Triglyceride [Mass/Vol] 244 mg/dL Critically high <=150 [facility] Comment on above: Performed By: #### L IVER, TSH, LIPID, FT3, BMP #### [facility] [address] [place] [address] Dr. Annalise Sebastian VLDL CALC 48.8 mg/dL Normal [facility] Comment on above: Performed By: #### L IVER, TSH, LIPID, FT3, BMP #### [facility] [address] [place] [address] Dr. Annalise Sebastian LIVER PROFILEon 09-04-2022 Albumin [Mass/Vol] 3.7 g/dL Normal 3.4-5.0 [facility] Comment on above: Performed By: #### L IVER, TSH, LIPID, FT3, BMP #### [facility] [address] [place] [address] Dr. Annalise Sebastian Albumin/Globulin [Mass ratio] 1.0 {ratio} Normal [facility] Comment on above: Performed By: #### L IVER, TSH, LIPID, FT3, BMP #### [facility] [address] [place] [address] Dr. Annalise Sebastian ALP [Catalytic activity/Vol] 75 U/L Normal 46-116 [facility] Comment on above: Performed By: #### L IVER, TSH, LIPID, FT3, BMP #### [facility] [address] [place] [address] Dr. Annalise Sebastian ALT [Catalytic activity/Vol] 39 U/L Normal 14-59 [facility] Comment on above: Performed By: #### L IVER, TSH, LIPID, FT3, BMP #### [facility] [address] [place] [address] Dr. Annalise Sebastian AST [Catalytic activity/Vol] 30 U/L Normal 15-37 [facility] Comment on above: Performed By: #### L IVER, TSH, LIPID, FT3, BMP #### [facility] [address] [place] [address] Dr. Annalise Sebastian BILI, CONJUGATED 0.1 mg/dL Normal 0.0-0.2 [facility] Comment on above: Performed By: #### L IVER, TSH, LIPID, FT3, BMP #### [facility] [address] [place] [address] Dr. Annalise Sebastian Bilirubin [Mass/Vol] 0.3 mg/dL Normal 0.2-1.0 [facility] Comment on above: Performed By: #### L IVER, TSH, LIPID, FT3, BMP #### [facility] [address] [place] [address] Dr. Annalise Sebastian Globulin (S) [Mass/Vol] 3.6 g/dL Normal [facility] Comment on above: Performed By: #### L IVER, TSH, LIPID, FT3, BMP #### [facility] [address] [place] [address] Dr. Annalise Sebastian Protein [Mass/Vol] 7.3 g/dL Normal 6.4-8.2 [facility] Comment on above: Performed By: #### L IVER, TSH, LIPID, FT3, BMP #### [facility] [address] [place] [address] Dr. Annalise Sebastian PROF CHEM 8 (BAS METB)on Anion gap [Moles/Vol] 9.4 mmol/L Normal [facility] Comment on above: Performed By: #### L IVER, TSH, LIPID, FT3, BMP #### [facility] [address] [place] [address] Dr. Annalise Sebastian Calcium [Mass/Vol] 9.3 mg/dL Normal 8.5-10.1 [facility] Comment on above: Performed By: #### L IVER, TSH, LIPID, FT3, BMP #### [facility] [address] [place] [address] Dr. Annalise Sebastian Chloride [Moles/Vol] 102 mmol/L Normal 98-107 [facility] Comment on above: Performed By: #### L IVER, TSH, LIPID, FT3, BMP #### [facility] [address] [place] [address] Dr. Annalise Sebastian CO2 [Moles/Vol] 29.1 mmol/L Normal 21.0-32.0 [facility] Comment on above: Performed By: #### L IVER, TSH, LIPID, FT3, BMP #### [facility] [address] [address] [address] Annalise Sebastian Creatinine [Mass/Vol] 1.01 mg/dL Normal 0.55-1.02 [facility] Comment on above: Performed By: #### L IVER, TSH, LIPID, FT3, BMP #### [facility] [address] [place] [address] Dr. Annalise Sebastian EGFR-AF TONGAN >60 Normal >=60 [facility] Comment on above: Performed By: #### L IVER, TSH, LIPID, FT3, BMP #### [facility] [address] [place] [address] Dr. Annalise Sebastian EGFR-NON AF TONGAN 56 mL/min/1.73m2 Critically low >=60 [facility] Comment on above: Performed By: #### L IVER, TSH, LIPID, FT3, BMP #### [facility] [address] [place] [address] Dr. Annalise Sebastian Glucose [Mass/Vol] 115 mg/dL Critically high 74-106 [facility] Comment on above: Performed By: #### L IVER, TSH, LIPID, FT3, BMP #### [facility] [address] [place] [address] Dr. Annalise Sebastian Potassium [Moles/Vol] 3.5 mmol/L Normal 3.5-5.1 [facility] Comment on above: Performed By: #### L IVER, TSH, LIPID, FT3, BMP #### [facility] [address] [place] [address] Dr. Annalise Sebastian Sodium [Moles/Vol] 137 mmol/L Normal 136-145 [facility] Comment on above: Performed By: #### L IVER, TSH, LIPID, FT3, BMP #### [facility] [address] [place] [address] Dr. Annalise Sebastian Urea nitrogen [Mass/Vol] 12.0 mg/dL Normal 7.0-18.0 [facility] Comment on above: Performed By: #### L IVER, TSH, LIPID, FT3, BMP #### [facility] [address] [place] [address] Dr. Annalise Sebastian Urea nitrogen/Creatinine [Mass ratio] 11.9 mg/mg Normal [facility] Comment on above: Performed By: #### L IVER, TSH, LIPID, FT3, BMP #### [facility] [address] [place] [address] Dr. Annalise Sebastian TSHon 09-04-2022 TSH 1.347 uIU/mL Normal 0.358-3.740 [facility] Comment on above: Performed By: #### L IVER, TSH, LIPID, FT3, BMP #### [facility] [address] [place] [address] Dr. Annalise Sebastian US CHESTon 04-21-2022 US [...] SEBASTIAN MIKE Date: 2022-04-21 17:34 Normal [facility] CBC AUTO DIFFon 09-27-2021 BASO # 0.0 103/ul Normal 0.0-0.1 [facility] Comment on above: Performed By: #### C BC #### [facility] [address] [place] [address] Dr. Annalise Sebastian Basophils/100 WBC (Bld) 0.5 % Normal 0.2-2.0 [facility] Comment on above: Performed By: #### C BC #### [facility] [address] [place] [address] Dr. Annalise Sebastian EO # 0.2 103/ul Normal 0.0-0.7 [facility] Comment on above: Performed By: #### C BC #### [facility] [address] [place] [address] Dr. Annalise Sebastian Eosinophils/100 WBC (Bld) 1.9 % Normal 0.9-7.0 [facility] Comment on above: Performed By: #### C BC #### [facility] [address] [place] [address] Dr. Annalise Sebastian Erythrocyte distribution width (RBC) [Ratio] 13.3 % Normal 11.0-15.0 [facility] Comment on above: Performed By: #### C BC #### [facility] [address] [place] [address] Dr. Annalise Sebastian Hematocrit (Bld) [Volume fraction] 40.9 % Normal 36.0-48.0 [facility] Comment on above: Performed By: #### C BC #### [facility] [address] [place] [address] Dr. Annalise Sebastian Hemoglobin (Bld) [Mass/Vol] 12.9 g/dL Normal 12.0-16.0 [facility] Comment on above: Performed By: #### C BC #### [facility] [address] [place] [address] Dr. Annalise Sebastian IG # 0.02 10e3/ul Normal 0.00-0.03 [facility] Comment on above: Performed By: #### C BC #### [facility] [address] [place] [address] Dr. Annalise Sebastian IG % 0.2 % Normal 0.0-0.5 [facility] Comment on above: Performed By: #### C BC #### [facility] [address] [place] [address] Dr. Annalise Sebastian LYMPH # 1.8 103/ul Normal 1.2-3.8 [facility] Comment on above: Performed By: #### C BC #### [facility] [address] [place] [address] Dr. Annalise Sebastian Lymphocytes/100 WBC (Bld) 21.0 % Normal 20.5-60.0 [facility] Comment on above: Performed By: #### C BC #### [facility] [address] [place] [address] Dr. Annalise Sebastian MANUAL DIFF REQ NO Normal [facility] Comment on above: Performed By: #### C BC #### [facility] [address] [place] [address] Dr. Annalise Sebastian MCH (RBC) [Entitic mass] 26.9 pg Normal 26.7-34.0 [facility] Comment on above: Performed By: #### C BC #### [facility] [address] [place] [address] Dr. Annalise Sebastian MCHC (RBC) [Mass/Vol] 31.5 g/dL Normal 29.9-35.2 [facility] Comment on above: Performed By: #### C BC #### [facility] [address] [place] [address] Dr. Annalies Sebastian MCV (RBC) [Entitic vol] 85.4 fL Normal 81.0-99.0 [facility] Comment on above: Performed By: #### C BC #### [facility] [address] [place] [address] Dr. Annalise Sebastian MONO # 0.6 103/ul Normal 0.3-0.8 [facility] Comment on above: Performed By: #### C BC #### [facility] [address] [place] [address] Dr. Annalise Sebastian Monocytes/100 WBC (Bld) 7.7 % Normal 1.7-12.0 [facility] Comment on above: Performed By: #### C BC #### [facility] [address] [place] [address] Dr. Annalise Sebastian NEUT # 5.7 103/ul Normal 1.4-6.5 [facility] Comment on above: Performed By: #### C BC #### [facility] [address] [place] [address] Dr. Annalise Sebastian Neutrophils/100 WBC (Bld) 68.7 % Normal 43.0-75.0 [facility] Comment on above: Performed By: #### C BC #### [facility] [address] [place] [address] Dr. Annalise Sebastian Platelet mean volume (Bld) [Entitic vol] 10.0 fL Normal 9.5-13.5 [facility] Comment on above: Performed By: #### C BC #### [facility] [address] [address] [address] Annalise Sebastian PLT 355 103/ul Normal 150-450 [facility] Comment on above: Performed By: #### C BC #### [facility] [address] [address] [address] Annalise Sebastian RBC 4.79 106/ul Normal 4.20-5.40 [facility] Comment on above: Performed By: #### C BC #### [facility] [address] [address] [address] Annalise Sebastian WBC 8.3 103/ul Normal 4.0-11.0 [facility] Comment on above: Performed By: #### C BC #### [facility] [address] [place] [address] Dr. Annalise Sebastian FREE T3on 09-27-2021 FREE T3 2.77 pg/mlL Normal 2.77-5.27 [facility] Comment on above: Performed By: #### F T3, BMP, LIPID, TSH, LIVER #### [facility] [address] [address] [address] Annalise Sebastian FREE T4on 09-27-2021 Free T4 [Mass/Vol] 1.29 ng/dL Normal 0.78-2.19 [facility] Comment on above: Performed By: #### L IVER, TSH, LIPID, FT3, BMP #### [facility] [address] [place] [address] Dr. Annalise Sebastian LIPID PROFILEon 09-27-2021 CHOL-HDL RATIO NORM SEE BELOW Normal [facility] Comment on above: Result Comment: 3.3 - 4.4 LOW RISK 4.4 - 7.1 AVERAGE RISK 7.1 - 11.0 MODERATE RISK >11.0 HIGH RISK Performed By: #### L IVER, TSH, LIPID, FT3, BMP #### [facility] [address] [place] [address] Dr. Annalise Sebastian Cholesterol [Mass/Vol] 148 mg/dL Normal <=200 [facility] Comment on above: Performed By: #### L IVER, TSH, LIPID, FT3, BMP #### [facility] [address] [address] [address] Annalise Sebastian Cholesterol in HDL [Mass/Vol] 36 mg/dL Normal [facility] Comment on above: Performed By: #### L IVER, TSH, LIPID, FT3, BMP #### [facility] [address] [address] [address] Annalise Sebastian Cholesterol in LDL [Mass/Vol] 59.8 mg/dL Normal [facility] Comment on above: Performed By: #### L IVER, TSH, LIPID, FT3, BMP #### [facility] [address] [place] [address] Dr. Annalise Sebastian Cholesterol.total/C holesterol in HDL [Mass ratio] 4.1 {ratio} Normal [facility] Comment on above: Performed By: #### L IVER, TSH, LIPID, FT3, BMP #### [facility] [address] [place] [address] Dr. Annalise Sebastian HDL NORMAL > or = 60 mg/dl - LO W CARDIOVASCULAR RISK <40 mg/dl - HIGH CARDIOVASCULAR RISK Normal [facility] Comment on above: Performed By: #### L IVER, TSH, LIPID, FT3, BMP #### [facility] [address] [place] [address] Dr. Annalise Sebastian LDL CALC NORMAL SEE BELOW Normal [facility] Comment on above: Result Comment: <100 mg/dl OPTIMAL 100 - 129 mg/dl NEAR OR ABOVE OPTIMAL 130 - 159 mg/dl BORDERLINE HIGH 160 - 189 mg/dl HIGH >190 mg/dl VERY HIGH Performed By: #### L IVER, TSH, LIPID, FT3, BMP #### [facility] [address] [place] [address] Dr. Annalise Sebastian Triglyceride [Mass/Vol] 261 mg/dL Critically high <=150 [facility] Comment on above: Performed By: #### L IVER, TSH, LIPID, FT3, BMP #### [facility] [address] [place] [address] Dr. Annalise Sebastian VLDL CALC 52.2 mg/dL Normal [facility] Comment on above: Performed By: #### L IVER, TSH, LIPID, FT3, BMP #### [facility] [address] [address] [address] Annalise Sebastian LIVER PROFILEon 09-27-2021 Albumin [Mass/Vol] 3.8 g/dL Normal 3.5-5.0 [facility] Comment on above: Performed By: #### F T3, BMP, LIPID, TSH, LIVER #### [facility] [address] [address] [address] Annalise Sebastian Albumin/Globulin [Mass ratio] 1.0 {ratio} Normal [facility] Comment on above: Performed By: #### F T3, BMP, LIPID, TSH, LIVER #### [facility] [facility] [address] [place] [address] Dr. Annalise Sebastian ALP [Catalytic activity/Vol] 65 U/L Normal 38-126 [facility] Comment on above: Performed By: #### F T3, BMP, LIPID, TSH, LIVER #### [facility] [address] [place] [address] Dr. Annalise Sebastian ALT [Catalytic activity/Vol] 29 U/L Normal 9-52 [facility] Comment on above: Performed By: #### F T3, BMP, LIPID, TSH, LIVER #### [facility] [address] [place] [address] Dr. Annalise Sebastian AST [Catalytic activity/Vol] 24 U/L Normal 14-36 [facility] Comment on above: Performed By: #### F T3, BMP, LIPID, TSH, LIVER #### [facility] [address] [place] [address] Dr. Annalise Sebastian BILI, CONJUGATED 0.1 mg/dL Normal 0.0-0.3 [facility] Comment on above: Performed By: #### F T3, BMP, LIPID, TSH, LIVER #### [facility] [address] [place] [address] Dr. Annalise Sebastian Bilirubin [Mass/Vol] 0.3 mg/dL Normal 0.2-1.3 [facility] Comment on above: Performed By: #### F T3, BMP, LIPID, TSH, LIVER #### [facility] [address] [place] [address] Dr. Annalise Sebastian Globulin (S) [Mass/Vol] 3.9 g/dL Normal [facility] Comment on above: Performed By: #### F T3, BMP, LIPID, TSH, LIVER #### [facility] [address] [place] [address] Dr. Annalise Sebastian Protein [Mass/Vol] 7.7 g/dL Normal 6.1-8.2 [facility] Comment on above: Performed By: #### F T3, BMP, LIPID, TSH, LIVER #### [facility] [address] [place] [address] Dr. Annalise Sebastian PROF CHEM 8 (BAS METB)on Anion gap [Moles/Vol] 10.8 mmol/L Normal [facility] Comment on above: Performed By: #### F T3, BMP, LIPID, TSH, LIVER #### [facility] [address] [place] [address] Dr. Annalise Sebastian Calcium [Mass/Vol] 9.5 mg/dL Normal 8.4-10.2 [facility] Comment on above: Performed By: #### F T3, BMP, LIPID, TSH, LIVER #### [facility] [address] [place] [address] Dr. Annalise Sebastian Chloride [Moles/Vol] 101 mmol/L Normal 98-107 [facility] Comment on above: Performed By: #### F T3, BMP, LIPID, TSH, LIVER #### [facility] [address] [place] [address] Dr. Annalise Sebastian CO2 [Moles/Vol] 29.9 mmol/L Normal 22.0-30.0 [facility] Comment on above: Performed By: #### F T3, BMP, LIPID, TSH, LIVER #### [facility] [address] [place] [address] Dr. Annalise Sebastian Creatinine [Mass/Vol] 1.08 mg/dL Critically high 0.52-1.04 [facility] Comment on above: Performed By: #### F T3, BMP, LIPID, TSH, LIVER #### [facility] [address] [place] [address] Dr. Annalise Sebastian EGFR-AF TONGAN >60 Normal >=60 [facility] Comment on above: Performed By: #### F T3, BMP, LIPID, TSH, LIVER #### [facility] [address] [place] [address] Dr. Annalise Sebastian EGFR-NON AF TONGAN 52 mL/min/1.73m2 Critically low >=60 [facility] Comment on above: Performed By: #### F T3, BMP, LIPID, TSH, LIVER #### [facility] [address] [place] [address] Dr. Annalise Sebastian Glucose [Mass/Vol] 91 mg/dL Normal 74-106 [facility] Comment on above: Performed By: #### F T3, BMP, LIPID, TSH, LIVER #### [facility] [address] [place] [address] Dr. Annalise Sebastian Potassium [Moles/Vol] 3.7 mmol/L Normal 3.4-5.0 [facility] Comment on above: Performed By: #### F T3, BMP, LIPID, TSH, LIVER #### [facility] [address] [place] [address] Dr. Annalise Sebastian Sodium [Moles/Vol] 138 mmol/L Normal 137-145 [facility] Comment on above: Performed By: #### F T3, BMP, LIPID, TSH, LIVER #### [facility] [address] [place] [address] Dr. Annalise Sebastian Urea nitrogen [Mass/Vol] 7.0 mg/dL Normal 7.0-17.0 [facility] Comment on above: Performed By: #### F T3, BMP, LIPID, TSH, LIVER #### [facility] [address] [place] [address] Dr. Annalise Sebastian Urea nitrogen/Creatinine [Mass ratio] 6.5 mg/mg Normal [facility] Comment on above: Performed By: #### F T3, BMP, LIPID, TSH, LIVER #### [facility] [address], [place] [address] Dr. Annalise Sebastian TSHon 09-27-2021 TSH 1.680 uIU/mL Normal 0.470-4.680 [facility] Comment on above: Performed By: #### L IVER, TSH, LIPID, FT3, BMP #### [facility] [address], [place] [address] Dr. Annalise Sebastian TSH RANGE SEE BELOW Normal [facility] Comment on above: Result Comment: <0.3 4 UIU/ml HYPERTHYROID 0.34-5.60 UIU/ml EUTHYROID >5.60 UIU/ml HYPOTHYROID Performed By: #### L IVER, TSH, LIPID, FT3, BMP #### [facility] [address] [place], [place] [address] Dr. Annalise Sebastian Encounters Encounter Date Encounter Type Care Provider Facility Start: 03-17-2024 End: 03-17-2024 ambulatory ANTHONY BOJORQUEZ Not Available Start: 02-18-2024 End: 02-19-2024 ambulatory JELANI CORRALES Not Available Start: 02-12-2024 End: 02-12-2024 ambulatory ANTHONY BOJORQUEZ Not Available Start: 09-04-2022 End: 09-05-[address] ANTHONY BOJORQUEZ Facility:[facility] Start: 04-20-2022 End: 04-21-[address] ANTHONY BOJORQUEZ Facility:[facility] Start: 09-27-2021 End: 09-28-[address] ANTHONY BOJORQUEZ Facility:[facility] Start: 10-17-2017 End: 10-18-2017 Ambulatory DEFAULT PHYSICIAN Facility:[facility] Start: 08-10-2017 End: 08-11-2017 Ambulatory DEFAULT PHYSICIAN Facility:[facility] Payers Date Payer Category Payer Unknown [id number] 1960 Unknown [id number] 2.16.84 [id number] 1960 Unknown [id number] 2.16.84 [id number] 1960 Unknown [id number] 2.16.84 [id number] 1960 Unknown [id number] 2.16.84 [id number] 1960 Unknown [id number] 2.16.84 [id number] 1960 Unknown [id number] 2.16.84 [id number] Unknown Summary Purpose Family History No Family History Records FoundNo Family History Records FoundNo Family History Records Found Advance Directives No Advanced Directives Records FoundNo Advanced Directives Records FoundNo Advanced Directives Records Found Additional Source Comments INFORMATION SOURCE (unrecogn ized section and content) DATE CREATED AUTHOR 04/23/2018 [facility] DATE CREATED AUTHOR AUTHOR'S ORGANIZ ATION 09/09/2022 [facility] DATE CREATED AUTHOR AUTHOR'S ORGANIZ ATION 03/19/2024 [facility] FOR RECORDS PERTAINING TO PATIENTS WHO ARE [...] BE BASED ON THE PRIMARY CLINICAL RECORDS. [facility] [employer] [facility]. provides no warranty or guarantee of the accuracy or completeness of information in this document.
== END 2024-05-01 12:35 | disposition home or self-care (01) ==
LOC: RAD 12:35
PROVIDERS: PCP Family Medicine; Visit Provider Family Medicine
DX: M54.42 Lumbago with sciatica, left side (principal); G89.29 Other chronic pain; M47.816 Spondylosis without myelopathy or radiculopathy, lumbar region
CPT/HCPCS: 72100; 73502

== ENCOUNTER 2024-08-20 13:06 | Outpatient (OUT) | payer OTHER, SELFPAY ==
--- NOTE | 2024-08-20 13:12 | MM_ITS ---
Patient Name: MAIKOL KNIGHT MR#: [id number] : 1960 Exam Date: 08/20/2024 Ordering Doctor: DR Christian Aviles . RADIOLOGY REPORT PROCEDURE: MM TOMOSYNTHESIS SCREENING BI COMPARISON: None. INDICATIONS: screening for malignant neoplasm Calculator Name NCI Breast Cancer Risk Assessment Tool 5 Year Breast Cancer Risk 1.40% Lifetime Breast Cancer Risk 5.80% Personal Breast Cancer No Personal Ovarian Cancer No Treatments None Family Cancers None LOCATION: [facility] BREAST COMPOSITION: There are scattered areas of fibroglandular density. FINDINGS: DIAGNOSTIC CATEGORY 0--INCOMPLETE: NEED ADDITIONAL IMAGING EVALUATION. RIGHT BREAST: No significant suspicious finding. Benign-appearing lymph node within upper inner quadrant. LEFT BREAST: 2 small lesions within the anterior lateral breast; 1 upper-outer quadrant and 1 lower-outer quadrant (approximately 2 o'clock and 4 o'clock). Wall is I suspect these represent lymph nodes etiology is not clear. Spot magnification views and ultrasound evaluation recommended. RECOMMENDATIONS: ADDITIONAL MAMMOGRAPHIC VIEWS REQUIRED: LEFT BREAST - LEFT CRANIOCAUDAL SPOT MAGNIFICATION VIEW - LEFT OBLIQUE SPOT MAGNIFICATION VIEW - ULTRASOUND: LEFT BREAST PLEASE NOTE: A NORMAL MAMMOGRAM DOES NOT EXCLUDE THE POSSIBILITY OF BREAST CANCER. A CLINICALLY SUSPICIOUS PALPABLE LUMP SHOULD BE BIOPSIED. Dictated by: Favian Aguirre M.D. on 08/24/2024 at 18:35 Approved by: Favian Aguirre M.D. on 08/24/2024 at 18:39
--- OUTSIDE RECORDS SUMMARY | 2024-08-20 13:28 | XMS_ITS | CCD ---
Author Organization [facility] Care Team Providers [employer] Artistic Director Name Role Phone PHYSICIAN, DEFAULT Unavailable Unavailable [...] (1 source) Ciprofloxacin Drug Allergy 07-25-2017 [facility] (1 source) Penicillin Drug Allergy 07-25-2017 [facility] (1 source) Sulfonamides (Antibiotic) Drug allergy (disorder) 07-25-2017 [facility] Problems Active Problems Problem Classification Problem Date Documented Date Episodic/Chronic Coronary atherosclerosis and other heart disease (1 source) Atherosclerotic heart disease of [place] coronary artery without angina pectoris; Translations: [ASHD [place] CA W/O ANGINA PECTORIS] Onset: 10-01-2021 Chronic Disorders of lipid metabolism (1 source) Hyperlipidemia, unspecified; Translations: [HYPERLIPIDEMIA UNSPECIFIED] Onset: 09-09-2022 Chronic Essential hypertension (5 sources) Essential (primary) hypertension; Translations: [ESSENTIAL PRIMARY HYPERTENSION] Onset: 09-27-2021 Chronic Other aftercare (1 source) Other skilled nursing (current) drug therapy; Translations: [OTH HOME HEALTH CLINICAL LIAISON CURRENT DRUG THERAPY] Onset: 09-09-2022 Episodic Thyroid [...] 09-04-2022 BASO # 0.0 103/ul Normal 0.0-0.1 [facility] Comment on above: Performed By: #### L IVER, TSH, LIPID, FT3, BMP #### [facility] [address] [place] [address] Dr. Annalise Sebastian Basophils/100 WBC (Bld) 0.6 % Normal 0.2-2.0 [facility] Comment on above: Performed By: #### L IVER, TSH, LIPID, FT3, BMP #### [facility] [address] [place] [address] Dr. Annalise Sebastian EO # 0.1 103/ul Normal 0.0-0.7 [facility] Comment on above: Performed By: #### L IVER, TSH, LIPID, FT3, BMP #### [facility] [address] [place] [address] Dr. Annalise Sebastian Eosinophils/100 WBC (Bld) 1.7 % Normal 0.9-7.0 [facility] Comment on above: Performed By: #### L IVER, TSH, LIPID, FT3, BMP #### [facility] [address] [place] [address] Dr. Annalise Sebastian Erythrocyte distribution width (RBC) [Ratio] 13.3 % Normal 11.0-15.0 [facility] Comment on above: Performed By: #### L IVER, TSH, LIPID, FT3, BMP #### [facility] [address] [place] [address] Dr. Annalise Sebastian Hematocrit (Bld) [Volume fraction] 42.5 % Normal 36.0-48.0 [facility] Comment on above: Performed By: #### L IVER, TSH, LIPID, FT3, BMP #### [facility] [address] [place] [address] Dr. Annalise Sebastian Hemoglobin (Bld) [Mass/Vol] 14.2 g/dL Normal 12.0-16.0 [facility] Comment on above: Performed By: #### L IVER, TSH, LIPID, FT3, BMP #### [facility] [address] [place] [address] Dr. Annalise Sebastian IG # 0.02 10e3/ul Normal 0.00-0.03 [facility] Comment on above: Performed By: #### L IVER, TSH, LIPID, FT3, BMP #### [facility] [address] [place] [address] Dr. Annalise Sebastian IG % 0.3 % Normal 0.0-0.5 [facility] Comment on above: Performed By: #### L IVER, TSH, LIPID, FT3, BMP #### [facility] [address] [place] [address] Dr. Annalise Sebastian LYMPH # 1.4 103/ul Normal 1.2-3.8 [facility] Comment on above: Performed By: #### L IVER, TSH, LIPID, FT3, BMP #### [facility] [address] [place] [address] Dr. Annalise Sebastian Lymphocytes/100 WBC (Bld) 20.0 % Critically low 20.5-60.0 [facility] Comment on above: Performed By: #### L IVER, TSH, LIPID, FT3, BMP #### [facility] [address] [place] [address] Dr. Annalise Sebastian MANUAL DIFF REQ NO Normal [facility] Comment on above: Performed By: #### L IVER, TSH, LIPID, FT3, BMP #### [facility] [address] [place] [address] Dr. Annalise Sebastian MCH (RBC) [Entitic mass] 27.5 pg Normal 26.7-34.0 [facility] Comment on above: Performed By: #### L IVER, TSH, LIPID, FT3, BMP #### [facility] [address] [place] [address] Dr. Annalise Sebastian MCHC (RBC) [Mass/Vol] 33.4 g/dL Normal 29.9-35.2 [facility] Comment on above: Performed By: #### L IVER, TSH, LIPID, FT3, BMP #### [facility] [address] [place] [address] Dr. Annalise Sebastian MCV (RBC) [Entitic vol] 82.4 fL Normal 81.0-99.0 [facility] Comment on above: Performed By: #### L IVER, TSH, LIPID, FT3, BMP #### [facility] [address] [place] [address] Dr. Annalise Sebastian MONO # 0.6 103/ul Normal 0.3-0.8 [facility] Comment on above: Performed By: #### L IVER, TSH, LIPID, FT3, BMP #### [facility] [address] [place] [address] Dr. Annalise Sebastian Monocytes/100 WBC (Bld) 8.1 % Normal 1.7-12.0 [facility] Comment on above: Performed By: #### L IVER, TSH, LIPID, FT3, BMP #### [facility] [address] [place] [address] Dr. Annalise Sebastian NEUT # 4.8 103/ul Normal 1.4-6.5 [facility] Comment on above: Performed By: #### L IVER, TSH, LIPID, FT3, BMP #### [facility] [address] [place] [address] Dr. Annalise Sebastian Neutrophils/100 WBC (Bld) 69.3 % Normal 43.0-75.0 [facility] Comment on above: Performed By: #### L IVER, TSH, LIPID, FT3, BMP #### [facility] [address] [place] [address] Dr. Annalise Sebastian Platelet mean volume (Bld) [Entitic vol] 9.7 fL Normal 9.5-13.5 [facility] Comment on above: Performed By: #### L IVER, TSH, LIPID, FT3, BMP #### [facility] [address] [address] [address] Annalise Sebastian PLT 290 103/ul Normal 150-450 [facility] Comment on above: Performed By: #### L IVER, TSH, LIPID, FT3, BMP #### [facility] [address] [address] [address] Annalise Sebastian RBC 5.16 106/ul Normal 4.20-5.40 [facility] Comment on above: Performed By: #### L IVER, TSH, LIPID, FT3, BMP #### [facility] [address] [place] [address] Dr. Annalise Sebastian WBC 6.9 103/ul Normal 4.0-11.0 [facility] Comment on above: Performed By: #### L IVER, TSH, LIPID, FT3, BMP #### [facility] [address] [place] [address] Dr. Annalise Sebastian FREE T3on 09-04-2022 FREE T3 2.68 pg/mlL Normal 2.18-3.98 [facility] Comment on above: Performed By: #### L IVER, TSH, LIPID, FT3, BMP #### [facility] [address] [place] [address] Dr. Annalise Sebastian FREE T4on 09-04-2022 Free T4 [Mass/Vol] 1.06 ng/dL Normal 0.76-1.46 [facility] Comment on above: Performed By: #### L IVER, TSH, LIPID, FT3, BMP #### [facility] [address] [place] [address] Dr. Annalise Sebastian LIPID PROFILEon 09-04-2022 CHOL-HDL RATIO NORM SEE BELOW Normal [facility] Comment on above: Result Comment: 3.3 - 4.4 LOW RISK 4.4 - 7.1 AVERAGE RISK 7.1 - 11.0 MODERATE RISK >11.0 HIGH RISK Performed By: #### L IVER, TSH, LIPID, FT3, BMP #### [facility] [address] [address] [address] Annalise Sebastian Cholesterol [Mass/Vol] 170 mg/dL Normal <=200 [facility] Comment on above: Performed By: #### L IVER, TSH, LIPID, FT3, BMP #### [facility] [address] [address] [address] Annalise Sebastian Cholesterol in HDL [Mass/Vol] 36 mg/dL Critically low 40-60 [facility] Comment on above: Performed By: #### L IVER, TSH, LIPID, FT3, BMP #### [facility] [address] [address] [address] Annalise Sebastian Cholesterol in LDL [Mass/Vol] 85.2 mg/dL Normal [facility] Comment on above: Performed By: #### L IVER, TSH, LIPID, FT3, BMP #### [facility] [address] [place] [address] Dr. Annalise Sebastian Cholesterol.total/C holesterol in HDL [Mass ratio] 4.7 {ratio} Normal [facility] Comment on above: Performed By: #### L IVER, TSH, LIPID, FT3, BMP #### [facility] [address] [address] [address] Annalise Sebastian HDL NORMAL > or = 60 mg/dl - LO W CARDIOVASCULAR RISK <40 mg/dl - HIGH CARDIOVASCULAR RISK Normal [facility] Comment on above: Performed By: #### L IVER, TSH, LIPID, FT3, BMP #### [facility] [address] [address] [address] Annalise Sebastian LDL CALC NORMAL SEE BELOW Normal [facility] Comment on above: Result Comment: <100 mg/dl OPTIMAL 100 - 129 mg/dl NEAR OR ABOVE OPTIMAL 130 - 159 mg/dl BORDERLINE HIGH 160 - 189 mg/dl HIGH >190 mg/dl VERY HIGH Performed By: #### L IVER, TSH, LIPID, FT3, BMP #### [facility] [address] [address] [address] Annalise Sebastian Triglyceride [Mass/Vol] 244 mg/dL Critically high <=150 [facility] Comment on above: Performed By: #### L IVER, TSH, LIPID, FT3, BMP #### [facility] [address] [place] [address] Dr. Annalise Sebastian VLDL CALC 48.8 mg/dL Normal [facility] Comment on above: Performed By: #### L IVER, TSH, LIPID, FT3, BMP #### [facility] [address] [place] [address] Dr. Annalise Sebastian LIVER PROFILEon 09-04-2022 Albumin [Mass/Vol] 3.7 g/dL Normal 3.4-5.0 [facility] Comment on above: Performed By: #### L IVER, TSH, LIPID, FT3, BMP #### [facility] [address] [place] [address] Dr. Annalise Sebastian Albumin/Globulin [Mass ratio] 1.0 {ratio} Normal [facility] Comment on above: Performed By: #### L IVER, TSH, LIPID, FT3, BMP #### [facility] [address] [place] [address] Dr. Annalise Sebastian ALP [Catalytic activity/Vol] 75 U/L Normal 46-116 [facility] Comment on above: Performed By: #### L IVER, TSH, LIPID, FT3, BMP #### [facility] [address] [place] [address] Dr. Annalise Sebastian ALT [Catalytic activity/Vol] 39 U/L Normal 14-59 [facility] Comment on above: Performed By: #### L IVER, TSH, LIPID, FT3, BMP #### [facility] [address] [place] [address] Dr. Annalise Sebastian AST [Catalytic activity/Vol] 30 U/L Normal 15-37 [facility] Comment on above: Performed By: #### L IVER, TSH, LIPID, FT3, BMP #### [facility] [address] [place] [address] Dr. Annalise Sebastian BILI, CONJUGATED 0.1 mg/dL Normal 0.0-0.2 [facility] Comment on above: Performed By: #### L IVER, TSH, LIPID, FT3, BMP #### [facility] [address] [place] [address] Dr. Annalise Sebastian Bilirubin [Mass/Vol] 0.3 mg/dL Normal 0.2-1.0 [facility] Comment on above: Performed By: #### L IVER, TSH, LIPID, FT3, BMP #### [facility] [address] [place] [address] Dr. Annalise Sebastian Globulin (S) [Mass/Vol] 3.6 g/dL Normal [facility] Comment on above: Performed By: #### L IVER, TSH, LIPID, FT3, BMP #### [facility] [address] [place] [address] Dr. Annalise Sebastian Protein [Mass/Vol] 7.3 g/dL Normal 6.4-8.2 [facility] Comment on above: Performed By: #### L IVER, TSH, LIPID, FT3, BMP #### [facility] [address] [place] [address] Dr. Annalise Sebastian PROF CHEM 8 (BAS METB)on Anion gap [Moles/Vol] 9.4 mmol/L Normal [facility] Comment on above: Performed By: #### L IVER, TSH, LIPID, FT3, BMP #### [facility] [address] [place] [address] Dr. Annalise Sebastian Calcium [Mass/Vol] 9.3 mg/dL Normal 8.5-10.1 [facility] Comment on above: Performed By: #### L IVER, TSH, LIPID, FT3, BMP #### [facility] [address] [place] [address] Dr. Annalise Sebastian Chloride [Moles/Vol] 102 mmol/L Normal 98-107 [facility] Comment on above: Performed By: #### L IVER, TSH, LIPID, FT3, BMP #### [facility] [address] [place] [address] Dr. Annalise Sebastian CO2 [Moles/Vol] 29.1 mmol/L Normal 21.0-32.0 [facility] Comment on above: Performed By: #### L IVER, TSH, LIPID, FT3, BMP #### [facility] [address] [address] [address] Annalise Sebastian Creatinine [Mass/Vol] 1.01 mg/dL Normal 0.55-1.02 [facility] Comment on above: Performed By: #### L IVER, TSH, LIPID, FT3, BMP #### [facility] [address] [place] [address] Dr. Annalise Sebastian EGFR-AF MEXICAN >60 Normal >=60 [facility] Comment on above: Performed By: #### L IVER, TSH, LIPID, FT3, BMP #### [facility] [address] [place] [address] Dr. Annalise Sebastian EGFR-NON AF [place] 56 mL/min/1.73m2 Critically low >=60 [facility] Comment on above: Performed By: #### L IVER, TSH, LIPID, FT3, BMP #### [facility] [address] [place] [address] Dr. Annalise Sebastian Glucose [Mass/Vol] 115 mg/dL Critically high 74-[address] [facility] Comment on above: Performed By: #### L IVER, TSH, LIPID, FT3, BMP #### [facility] [address] [place] [address] Dr. Annalise Sebastian Potassium [Moles/Vol] 3.5 mmol/L Normal 3.5-5.1 [facility] Comment on above: Performed By: #### L IVER, TSH, LIPID, FT3, BMP #### [facility] [address] [place] [address] Dr. Annalise Sebastian Sodium [Moles/Vol] 137 mmol/L Normal 136-145 [facility] Comment on above: Performed By: #### L IVER, TSH, LIPID, FT3, BMP #### [facility] [address] [place] [address] Dr. Annalise Sebastian Urea nitrogen [Mass/Vol] 12.0 mg/dL Normal 7.0-18.0 [facility] Comment on above: Performed By: #### L IVER, TSH, LIPID, FT3, BMP #### [facility] [address] [place] [address] Dr. Annalise Sebastian Urea nitrogen/Creatinine [Mass ratio] 11.9 mg/mg Normal [facility] Comment on above: Performed By: #### L IVER, TSH, LIPID, FT3, BMP #### [facility] [address] [place] [address] Dr. Annalise Sebastian TSHon 09-04-2022 TSH 1.347 uIU/mL Normal 0.358-3.740 [facility] Comment on above: Performed By: #### L IVER, TSH, LIPID, FT3, BMP #### [facility] [address] [place] [address] Dr. Annalise Sebastian US CHESTon 04-21-2022 US [...] SEBASTIAN MIKE Date: 2022-04-21 17:34 Normal [facility] CBC AUTO DIFFon 09-27-2021 BASO # 0.0 103/ul Normal 0.0-0.1 [facility] Comment on above: Performed By: #### C BC #### [facility] [address] [place] [address] Dr. Annalise Sebastian Basophils/100 WBC (Bld) 0.5 % Normal 0.2-2.0 [facility] Comment on above: Performed By: #### C BC #### [facility] [address] [place] [address] Dr. Annalise Sebastian EO # 0.2 103/ul Normal 0.0-0.7 [facility] Comment on above: Performed By: #### C BC #### [facility] [address] [place] [address] Dr. Annalise Sebastian Eosinophils/100 WBC (Bld) 1.9 % Normal 0.9-7.0 [facility] Comment on above: Performed By: #### C BC #### [facility] [address] [place] [address] Dr. Annalise Sebastian Erythrocyte distribution width (RBC) [Ratio] 13.3 % Normal 11.0-15.0 [facility] Comment on above: Performed By: #### C BC #### [facility] [address] [place] [address] Dr. Annalise Sebastian Hematocrit (Bld) [Volume fraction] 40.9 % Normal 36.0-48.0 [facility] Comment on above: Performed By: #### C BC #### [facility] [address] [place] [address] Dr. Annalise Sebastian Hemoglobin (Bld) [Mass/Vol] 12.9 g/dL Normal 12.0-16.0 [facility] Comment on above: Performed By: #### C BC #### [facility] [address] [place] [address] Dr. Annalise Sebastian IG # 0.02 10e3/ul Normal 0.00-0.03 [facility] Comment on above: Performed By: #### C BC #### [facility] [address] [place] [address] Dr. Annalise Sebastian IG % 0.2 % Normal 0.0-0.5 [facility] Comment on above: Performed By: #### C BC #### [facility] [address] [place] [address] Dr. Annalise Sebastian LYMPH # 1.8 103/ul Normal 1.2-3.8 [facility] Comment on above: Performed By: #### C BC #### [facility] [address] [place] [address] Dr. Annalise Sebsatian Lymphocytes/100 WBC (Bld) 21.0 % Normal 20.5-60.0 [facility] Comment on above: Performed By: #### C BC #### [facility] [address] [place] [address] Dr. Annalise Sebastian MANUAL DIFF REQ NO Normal [facility] Comment on above: Performed By: #### C BC #### [facility] [address] [place] [address] Dr. Annalise Sebastian MCH (RBC) [Entitic mass] 26.9 pg Normal 26.7-34.0 [facility] Comment on above: Performed By: #### C BC #### [facility] [address] [place] [address] Dr. Annalise Sebastian MCHC (RBC) [Mass/Vol] 31.5 g/dL Normal 29.9-35.2 [facility] Comment on above: Performed By: #### C BC #### [facility] [address] [place] [address] Dr. Annalise Sebastian MCV (RBC) [Entitic vol] 85.4 fL Normal 81.0-99.0 [facility] Comment on above: Performed By: #### C BC #### [facility] [address] [place] [address] Dr. Annalise Sebastian MONO # 0.6 103/ul Normal 0.3-0.8 [facility] Comment on above: Performed By: #### C BC #### [facility] [address] [place] [address] Dr. Annalise Sebastian Monocytes/100 WBC (Bld) 7.7 % Normal 1.7-12.0 [facility] Comment on above: Performed By: #### C BC #### [facility] [address] [place] [address] Dr. Annalise Sebastian NEUT # 5.7 103/ul Normal 1.4-6.5 [facility] Comment on above: Performed By: #### C BC #### [facility] [address] [place] [address] Dr. Annalise Sebastian Neutrophils/100 WBC (Bld) 68.7 % Normal 43.0-75.0 [facility] Comment on above: Performed By: #### C BC #### [facility] [address] [place] [address] Dr. Annalise Sebastian Platelet mean volume (Bld) [Entitic vol] 10.0 fL Normal 9.5-13.5 [facility] Comment on above: Performed By: #### C BC #### [facility] [address] [address] [address] Annalise Sebastian PLT 355 103/ul Normal 150-450 [facility] Comment on above: Performed By: #### C BC #### [facility] [address] [address] [address] Annalise Sebastian RBC 4.79 106/ul Normal 4.20-5.40 [facility] Comment on above: Performed By: #### C BC #### [facility] [address] [address] [address] Annalise Sebastian WBC 8.3 103/ul Normal 4.0-11.0 [facility] Comment on above: Performed By: #### C BC #### [facility] [address] [place] [address] Dr. Annalise Sebastian FREE T3on 09-27-2021 FREE T3 2.77 pg/mlL Normal 2.77-5.27 [facility] Comment on above: Performed By: #### F T3, BMP, LIPID, TSH, LIVER #### [facility] [address] [address] [address] Annalise Sebastian FREE T4on 09-27-2021 Free T4 [Mass/Vol] 1.29 ng/dL Normal 0.78-2.19 [facility] Comment on above: Performed By: #### L IVER, TSH, LIPID, FT3, BMP #### [facility] [address] [place] [address] Dr. Annalise Sebastian LIPID PROFILEon 09-27-2021 CHOL-HDL RATIO NORM SEE BELOW Normal [facility] Comment on above: Result Comment: 3.3 - 4.4 LOW RISK 4.4 - 7.1 AVERAGE RISK 7.1 - 11.0 MODERATE RISK >11.0 HIGH RISK Performed By: #### L IVER, TSH, LIPID, FT3, BMP #### [facility] [address] [place] [address] Dr. Annalise Sebastian Cholesterol [Mass/Vol] 148 mg/dL Normal <=200 [facility] Comment on above: Performed By: #### L IVER, TSH, LIPID, FT3, BMP #### [facility] [address] [address] [address] Annalise Sebastian Cholesterol in HDL [Mass/Vol] 36 mg/dL Normal [facility] Comment on above: Performed By: #### L IVER, TSH, LIPID, FT3, BMP #### [facility] [address] [address] [address] Annalise Sebastian Cholesterol in LDL [Mass/Vol] 59.8 mg/dL Normal [facility] Comment on above: Performed By: #### L IVER, TSH, LIPID, FT3, BMP #### [facility] [address] [place] [address] Dr. Annalise Sebastian Cholesterol.total/C holesterol in HDL [Mass ratio] 4.1 {ratio} Normal [facility] Comment on above: Performed By: #### L IVER, TSH, LIPID, FT3, BMP #### [facility] [address] [place] [address] Dr. Annalise Sebastian HDL NORMAL > or = 60 mg/dl - LO W CARDIOVASCULAR RISK <40 mg/dl - HIGH CARDIOVASCULAR RISK Normal [facility] Comment on above: Performed By: #### L IVER, TSH, LIPID, FT3, BMP #### [facility] Laboratory [address] [place] [address] Dr. Annalise Sebastian LDL CALC NORMAL SEE BELOW Normal [facility] Comment on above: Result Comment: <100 mg/dl OPTIMAL 100 - 129 mg/dl NEAR OR ABOVE OPTIMAL 130 - 159 mg/dl BORDERLINE HIGH 160 - 189 mg/dl HIGH >190 mg/dl VERY HIGH Performed By: #### L IVER, TSH, LIPID, FT3, BMP #### [facility] [address] [place] [address] Dr. Annalise Sebastian Triglyceride [Mass/Vol] 261 mg/dL Critically high <=150 [facility] Comment on above: Performed By: #### L IVER, TSH, LIPID, FT3, BMP #### [facility] [address] [place] [address] Dr. Annalise Sebastian VLDL CALC 52.2 mg/dL Normal [facility] Comment on above: Performed By: #### L IVER, TSH, LIPID, FT3, BMP #### [facility] [address] [address] [address] Annalise Sebastian LIVER PROFILEon 09-27-2021 Albumin [Mass/Vol] 3.8 g/dL Normal 3.5-5.0 [facility] Comment on above: Performed By: #### F T3, BMP, LIPID, TSH, LIVER #### [facility] [address] [address] [address] Annalise Sebastian Albumin/Globulin [Mass ratio] 1.0 {ratio} Normal [facility] Comment on above: Performed By: #### F T3, BMP, LIPID, TSH, LIVER #### [facility] [address] [place] [address] Dr. Annalise Sebastian ALP [Catalytic activity/Vol] 65 U/L Normal 38-126 [facility] Comment on above: Performed By: #### F T3, BMP, LIPID, TSH, LIVER #### [facility] [address] [place] [address] Dr. Annalise Sebastian ALT [Catalytic activity/Vol] 29 U/L Normal 9-52 [facility] Comment on above: Performed By: #### F T3, BMP, LIPID, TSH, LIVER #### [facility] [address] [place] [address] Dr. Annalise Sebastian AST [Catalytic activity/Vol] 24 U/L Normal 14-36 [facility] Comment on above: Performed By: #### F T3, BMP, LIPID, TSH, LIVER #### [facility] [address] [place] [address] Dr. Annalise Sebastian BILI, CONJUGATED 0.1 mg/dL Normal 0.0-0.3 [facility] Comment on above: Performed By: #### F T3, BMP, LIPID, TSH, LIVER #### [facility] [address] [place] [address] Dr. Annalise Sebastian Bilirubin [Mass/Vol] 0.3 mg/dL Normal 0.2-1.3 [facility] Comment on above: Performed By: #### F T3, BMP, LIPID, TSH, LIVER #### [facility] [address] [place] [address] Dr. Annalise Sebastian Globulin (S) [Mass/Vol] 3.9 g/dL Normal [facility] Comment on above: Performed By: #### F T3, BMP, LIPID, TSH, LIVER #### [facility] [address] [place] [address] Dr. Annalise Sebastian Protein [Mass/Vol] 7.7 g/dL Normal 6.1-8.2 [facility] Comment on above: Performed By: #### F T3, BMP, LIPID, TSH, LIVER #### [facility] [address] [place] [address] Dr. Annalise Sebastian PROF CHEM 8 (BAS METB)on Anion gap [Moles/Vol] 10.8 mmol/L Normal [facility] Comment on above: Performed By: #### F T3, BMP, LIPID, TSH, LIVER #### [facility] [address] [place] [address] Dr. Annalise Sebastian Calcium [Mass/Vol] 9.5 mg/dL Normal 8.4-10.2 [facility] Comment on above: Performed By: #### F T3, BMP, LIPID, TSH, LIVER #### [facility] [address] [place] [address] Dr. Annalise Sebastian Chloride [Moles/Vol] 101 mmol/L Normal 98-107 [facility] Comment on above: Performed By: #### F T3, BMP, LIPID, TSH, LIVER #### [facility] [address] [place] [address] Dr. Annalise Sebastian CO2 [Moles/Vol] 29.9 mmol/L Normal 22.0-30.0 [facility] Comment on above: Performed By: #### F T3, BMP, LIPID, TSH, LIVER #### [facility] [address] [place] [address] Dr. Annalise Sebastian Creatinine [Mass/Vol] 1.08 mg/dL Critically high 0.52-1.04 [facility] Comment on above: Performed By: #### F T3, BMP, LIPID, TSH, LIVER #### [facility] [address] [place] [address] Dr. Annalise Sebastian EGFR-AF MEXICAN >60 Normal >=60 [facility] Comment on above: Performed By: #### F T3, BMP, LIPID, TSH, LIVER #### [facility] [address] [place] [address] Dr. Annalise Sebastian EGFR-NON AF MEXICAN 52 mL/min/1.73m2 Critically low >=60 [facility] Comment on above: Performed By: #### F T3, BMP, LIPID, TSH, LIVER #### [facility] [address] [place] [address] Dr. Annalise Sebastian Glucose [Mass/Vol] 91 mg/dL Normal 74-106 [facility] Comment on above: Performed By: #### F T3, BMP, LIPID, TSH, LIVER #### [facility] [address] [place] [address] Dr. Annalise Sebastian Potassium [Moles/Vol] 3.7 mmol/L Normal 3.4-5.0 [facility] Comment on above: Performed By: #### F T3, BMP, LIPID, TSH, LIVER #### [facility] [address] [place] [address] Dr. Annalise Sebastian Sodium [Moles/Vol] 138 mmol/L Normal 137-145 [facility] Comment on above: Performed By: #### F T3, BMP, LIPID, TSH, LIVER #### [facility] [address] [place] [address] Dr. Annalise Sebastian Urea nitrogen [Mass/Vol] 7.0 mg/dL Normal 7.0-17.0 [facility] Comment on above: Performed By: #### F T3, BMP, LIPID, TSH, LIVER #### [facility] [address] [place] [address] Dr. Annalise Sebastian Urea nitrogen/Creatinine [Mass ratio] 6.5 mg/mg Normal [facility] Comment on above: Performed By: #### F T3, BMP, LIPID, TSH, LIVER #### [facility] [address] [place], [place] [address] Dr. Annalise Sebastian TSHon 09-27-2021 TSH 1.680 uIU/mL Normal 0.470-4.680 [facility] Comment on above: Performed By: #### L IVER, TSH, LIPID, FT3, BMP #### [facility] [address] [place], [place] [address] Dr. Annalise Sebastian TSH RANGE SEE BELOW Normal [facility] Comment on above: Result Comment: <0.3 4 UIU/ml HYPERTHYROID 0.34-5.60 UIU/ml EUTHYROID >5.60 UIU/ml HYPOTHYROID Performed By: #### L IVER, TSH, LIPID, FT3, BMP #### [facility] [address] [place], [place] [address] Dr. Annalise Sebastian Encounters Encounter Date Encounter Type Care Provider Facility Start: 03-17-2024 End: 03-17-2024 ambulatory ANTHONY OBJORQUEZ Not Available Start: 02-18-2024 End: 02-19-2024 ambulatory JELANI CORRALES Not Available Start: 02-12-2024 End: 02-12-2024 ambulatory ANTHONY BOJORQUEZ Not Available Start: 09-04-2022 End: 09-05-[address] ANTHONY BOJORQUEZ Facility:[facility] Start: 04-20-2022 End: 04-21-[address] ANTHONY BOJORQUEZ Facility:[facility] Start: 09-27-2021 End: 09-28-[address] ANTHONY BOJORQUEZ Facility:[facility] Start: 10-17-2017 End: 10-18-2017 Ambulatory DEFAULT PHYSICIAN Facility:[facility] Start: 08-10-2017 End: 08-11-2017 Ambulatory DEFAULT PHYSICIAN Facility:[facility] Payers Date Payer Category Payer Unknown [id number] 1960 Unknown [id number] 2.16.84 [id number] 1960 Unknown [id number] 2.16.84 [id number] 1960 Unknown [id number] 2.16.84 [id number] 1960 Unknown [id number] 2.16.84 [id number] 1960 Unknown [id number] 2.16.84 [id number] 1960 Unknown [id number] 2.16.84 [id number] Unknown Summary Purpose Family History No Family History Records FoundNo Family History Records FoundNo Family History Records Found Advance Directives No Advanced Directives Records FoundNo Advanced Directives Records FoundNo Advanced Directives Records Found Additional Source Comments INFORMATION SOURCE (unrecogn ized section and content) DATE CREATED AUTHOR 04/23/2018 [facility] DATE CREATED AUTHOR AUTHOR'S ORGANIZ ATION 09/09/2022 [facility] DATE CREATED AUTHOR AUTHOR'S ORGANIZ ATION 03/19/2024 [facility] FOR RECORDS PERTAINING TO PATIENTS WHO [...] BE BASED ON THE PRIMARY CLINICAL RECORDS. [facility] [employer] [facility]. provides no warranty or guarantee of the accuracy or completeness of information in this document.
== END 2024-08-20 13:07 | disposition home or self-care (01) ==
LOC: MAMMO 13:06
PROVIDERS: PCP Family Medicine; Visit Provider Family Medicine
DX: Z12.31 Encounter for screening mammogram for malignant neoplasm of breast (principal); N63.21 Unspecified lump in the left breast, upper outer quadrant; N63.23 Unspecified lump in the left breast, lower outer quadrant
CPT/HCPCS: 77063; 77067

== ENCOUNTER 2024-09-04 14:26 | Outpatient (OUT) | payer OTHER, SELFPAY ==
--- NOTE | 2024-09-04 14:29 | MM_ITS ---
Patient Name: MAIKOL KNIGHT MR#: [id number] : 1960 Exam Date: 09/04/2024 Ordering Doctor: DR Christian Aviles . RADIOLOGY REPORT PROCEDURE: MM DIAGNOSTIC MAMMO UNILAT LT, 09/04/2024, 14:39 US BREAST LT LIMITED, 09/04/2024, 15:05 COMPARISON: MM TOMOSYNTHESIS SCREENING BI, 08/20/2024. INDICATIONS: Abnormal Mammogram Calculator Name NCI Breast Cancer Risk Assessment Tool 5 Year Breast Cancer Risk 1.40% Lifetime Breast Cancer Risk 5.80% Personal Breast Cancer No Personal Ovarian Cancer No Treatments None Family Cancers None LOCATION: [facility] BREAST COMPOSITION: There are scattered areas of fibroglandular density. FINDINGS: DIAGNOSTIC CATEGORY 4--SUSPICIOUS FOR MALIGNANCY. FINDING DOES NOT EXHIBIT CLASSIC FINDINGS OF BREAST CANCER: LEFT BREAST: Spot magnification views demonstrate persistence of 2 partially circumscribed masses similar to earlier study. Ultrasound evaluation demonstrates a partially circumscribed 7 x 6 x 5 mm mass at the 2 o'clock position and a 13 x 9 x 3 mm benign appearing lymph node at the 4 o'clock position. Ultrasound-guided tissue sampling of the 2 o'clock lesion is recommended. Alternatively, follow-up diagnostic mammography and ultrasound evaluation of the left breast in 6 months could be performed to document stability and to help establish baseline. RECOMMENDATIONS: ULTRASOUND-GUIDED CORE BIOPSY: LEFT BREAST PLEASE NOTE: A NORMAL MAMMOGRAM DOES NOT EXCLUDE THE POSSIBILITY OF BREAST CANCER. A CLINICALLY SUSPICIOUS PALPABLE LUMP SHOULD BE BIOPSIED. Dictated by: Favian Aguirre M.D. on 09/04/2024 at 16:23 Approved by: Favian Aguirre M.D. on 09/04/2024 at 16:29
--- OUTSIDE RECORDS SUMMARY | 2024-09-04 14:44 | XMS_ITS | CCD ---
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 Name Role Phone PHYSICIAN, DEFAULT Unavailable Unavailable [...] ANTHONY Referring Unavailable NADERER, ANTHONY Attending Unavailable Naderer Anthony FERNANDO Primary Care Provider Allergies Allergy Classification Reported Allergen(s) Allergy Type Date of Onset Reaction(s) Facility (1 source) Ciprofloxacin Drug Allergy 7 [facility] (1 source) Penicillin Drug Allergy 7 [facility] (1 source) Sulfonamides (Antibiotic) Drug allergy (disorder) 7 [facility] (2 sources) Ciprofloxacin Drug Allergy 3 Unknown [facility] Work Phone: (2 sources) Penicillins Drug Allergy 3 Unknown [facility] (2 sources) Sulfonamides (Antibiotic) Propensity to adverse reactions 3 Unknown [facility] Medications Current Medications Medication Drug Class(es) Dates Sig (Normalized) Sig (Original) [id number] 200 actuat albuterol 0.09 mg/actuat metered dose inhaler (2 sources) beta2-Adrenergic Agonist take 2 puff(s) by inhalation every four hours for wheezing albuterol HFA 90 mcg/act inhaler Inhale 2 puffs every 4 (four) hours if needed for wheezing. Active alendronic acid 70 mg oral tablet (2 sources) Bisphosphonate Start: 07-16-2024 take 1 tablet by mouth in the morning alendronate (Fosamax) 70 MG tablet Indications: Osteopenia, unspecified location Take 1 tablet (70 mg) by mouth every 7 (seven) days Take in the morning with a full glass of water, on an empty stomach, and do not take anything else by mouth or lie down for the next 30 min. 4 tablet 5 07/16/2024 Active ALPRAZolam 0.5 mg oral tablet (3 sources) Benzodiazepine Start: 07-03-2024 End: 09-25-2024 take 1 tablet by mouth three times daily as needed for anxiety ALPRAZolam (Xanax) 0.5 MG tablet Indications: STEPHANIE (generalized anxiety disorder) (CMS/HCC) TAKE 1 TABLET BY MOUTH THREE TIMES DAILY NEEDED FOR ANXIETY for up to 20 days 60 tablet 1 08/26/2024 09/25/2024 Active amitriptyline hydrochloride 25 mg oral tablet (2 sources) Tricyclic Antidepressant Start: 06-25-2024 End: 06-25-2025 take 1 tablet by mouth at bedtime amitriptyline (Elavil) 25 MG tablet Indications: Fibromyalgia Take 1 tablet (25 mg) by mouth at bedtime 30 tablet 11 06/25/2024 06/25/2025 Active atenolol 25 mg oral tablet (2 sources) beta-Adrenergic Mark Start: 04-08-2024 End: 04-08-2025 take 1 tablet by mouth in the morning atenolol (Tenormin) 25 MG tablet Indications: Benign essential hypertension (CMS/HCC) Take 1 tablet (25 mg) by mouth in the morning and 1 tablet (25 mg) before bedtime. 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 angina pectoris (CMS/HCC) TAKE 1 TABLET BY MOUTH EVERY MORNING 30 tablet 1 08/12/2024 Active 24 hr dilTIAZem hydrochloride 180 mg extended release oral capsule (2 sources) Calcium Channel Mark Start: 06-25-2024 End: 06-25-2025 take 1 capsule by mouth once daily dilTIAZem CD (Cardizem CD) 180 MG 24 hr capsule Indications: SVT (supraventricular tachycardia) (CMS/HCC) Take 1 capsule (180 mg) by mouth Daily 30 capsule 11 06/25/2024 06/25/2025 Active fenofibrate 145 mg oral tablet (2 sources) Peroxisome Proliferator Receptor alpha Agonist Start: 01-28-2024 End: 01-27-2025 take 1 tablet by mouth at bedtime fenofibrate (Tricor) 145 MG tablet Indications: Dyslipidemia (CMS/HCC) Take 1 tablet (145 mg) by mouth at bedtime 30 tablet 11 01/28/2024 01/27/2025 Active gabapentin 600 mg oral tablet (2 sources) Anti-epileptic Agent Start: 07-07-2024 take 1 tablet by mouth once daily at bedtime gabapentin (Neurontin) 600 MG tablet Indications: Fibromyalgia TAKE 1 TABLET BY MOUTH EVERY MORNING and before bedtime 60 tablet 2 07/07/2024 Active levothyroxine sodium 0.05 mg oral tablet (2 sources) l-Thyroxine Start: 06-18-2024 take 1 tablet by mouth before mealtime levothyroxine (Synthroid, Levoxyl) 50 MCG tablet Indications: Hypothyroidism, adult (CMS/HCC) Take 1 tablet (50 mcg) by mouth in the morning. Take before meals. 30 tablet 5 06/18/2024 Active nabumetone 500 mg oral tablet (2 sources) Nonsteroidal Anti-inflammatory Drug Start: 07-21-2024 take 1 tablet by mouth twice daily as needed for pain nabumetone (Relafen) 500 MG tablet Indications: Chronic bilateral low back pain with left-sided sciatica TAKE 1 TABLET BY MOUTH TWICE DAILY NEEDED FOR PAIN 60 tablet 1 07/21/2024 Active 24 hr oxybutynin chloride 10 mg extended release oral tablet (2 sources) Cholinergic Muscarinic Antagonist Start: 05-21-2024 take 1 tablet by mouth once daily oxybutynin XL (Ditropan-XL) 10 MG 24 hr tablet Indications: Hyperhidrosis Take 1 tablet (10 mg) by mouth Daily Do not crush, chew, or split. 30 tablet 5 05/21/2024 Active tiotropium 0.018 mg inhalation powder (2 sources) Anticholinergic Start: 03-17-2024 take 1 capsule by inhalation in the morning tiotropium (Spiriva HandiHaler) 18 MCG inhalation capsule Indications: Chronic obstructive pulmonary disease, unspecified COPD type (CMS/HCC) Place 1 capsule (18 mcg) into inhaler and inhale in the morning. 30 capsule 5 03/17/2024 Active tiZANidine 4 mg oral tablet (2 sources) Central alpha-2 Adrenergic Agonist Start: 06-25-2024 take 1 tablet by mouth three times daily as needed for muscle spasms tiZANidine (Zanaflex) 4 MG tablet Indications: Lumbar spondylolysis Take 1 tablet (4 mg) by mouth 3 (three) times a day as needed for muscle spasms 90 tablet 5 06/25/2024 Active triamcinolone acetonide 5 mg/ml topical cream (2 sources) Corticosteroid Start: 03-17-2024 triamcinolone (Kenalog) 0.5 % cream Indications: Plaque psoriasis (CMS/HCC) Apply topically 3 (three) times a day 60 g 3 03/17/2024 Active 24 hr venlafaxine 75 mg extended release oral capsule (2 sources) Serotonin and Norepinephrine Reuptake Inhibitor Start: 06-12-2024 take 1 capsule by mouth once daily venlafaxine XR (Effexor XR) 75 MG 24 hr capsule Indications: MDD (major depressive disorder), recurrent episode, mild (HCC) (CMS/HCC) Take 1 capsule (75 mg) by mouth Daily Do not crush or chew. 30 capsule 3 06/12/2024 Active Problems Active Problems Problem Classification Problem Date Documented Da te Episodic/Chronic Anxiety disorders (3 sources) Generalized anxiety disorder; Translations: [Generalized anxiety disorder] Onset: 01 28-22-2024 Chronic Cardiac dysrhythmias (2 sources) Supraventricular tachycardia; Translations: [SVT (supraventricular tachycardia)] Onset: 2 06-12-2023 Chronic Chronic obstructive pulmonary disease and bronchiectasis (2 sources) Chronic obstructive lung disease; Translations: [Chronic obstructive pulmonary disease, unspecified] Onset: 4 01-01-2024 Chronic Coronary atherosclerosis and other heart disease (3 sources) Atherosclerotic heart disease of [place] coronary artery without angina pectoris; Translations: [Coronary arteriosclerosis] Onset: 0 06-12-2023 Chronic Disorders of lipid metabolism (5 sources) Hyperlipidemia, unspecified; Translations: [Dyslipidemia] Onset: 0 Resolved: 4 01-01-2024 Chronic Essential hypertension (7 sources) Essential (primary) hypertension; Translations: [Benign essential hypertension] Onset: 2 Chronic Mood disorders (2 sources) Recurrent major depressive episodes, mild ; Translations: [Major depressive disorder, recurrent, mild] Onset: 4 01-01-2024 Chronic Other aftercare (1 source) Other longterm (current) drug therapy; Translations: [OTH PHYSICIAN CODER CURRENT DRUG THERAPY] Onset: 2 Episodic Other circulatory disease (2 sources) History of angioplasty; Translations: [Peripheral vascular angioplasty status with implants and grafts] Onset: 0 06-12-2023 Chronic Other connective tissue disease (2 sources) Ganglion cyst of left wrist; Translations: [Ganglion, left wrist] Onset: 4 07-24-2024 Episodic Other gastrointestinal disorders (2 sources) Irritable bowel syndrome with diarrhea; Translations: [Irritable bowel syndrome with diarrhea] Onset: 4 01-01-2024 Chronic Other inflammatory condition of skin (2 sources) Plaque psoriasis; Translations: [Psoriasis vulgaris] Onset: 4 03-17-2024 Chronic Other non-traumatic joint disorders (2 sources) Pain in left knee; Translations: [Pain in joint, lower leg] Onset: 4 07-24-2024 Episodic Other nutritional; endocrine; and metabolic disorders (2 sources) Body mass index 30+ - obesity; Translations: [Obesity, unspecified] Onset: 0 07-24-2024 Chronic Other screening for suspected conditions (not mental disorders or infectious disease) (3 sources) Mammography abnormal; Translations: [Other abnormal and inconclusive findings on diagnostic imaging of breast] Onset: 4 08-25-2024 Episodic Thyroid disorders (7 sources) Hypothyroidism, unspecified; Translations: [Hypothyroidism] Onset: 1 Chronic Past or Other Problems Problem Classification Problem Date Documented Da te Episodic/Chronic Cardiac dysrhythmias (2 sources) Palpitations; Translations: [Palpitations] Onset: 04-17-2012 06-12-2023 Episodic Diabetes mellitus without complication (2 sources) Prediabetes; Translations: [Prediabetes] Onset: 02-12-2024 02-12-2024 Episodic Other acquired deformities (2 sources) Spondylolysis; Translations: [Spondylolysis, lumbar region] Onset: 02-12-2024 05-21-2024 Episodic Other aftercare (2 sources) Long-term current use of drug therapy; Translations: [Other superintendent [employer] (current) drug therapy] Onset: 02-12-2024 02-12-2024 Episodic Other connective tissue disease (4 sources) Soft tissue disorder, unspecified; Translations: [SOFT TISSUE DISORDER UNSPECIFIED] Onset: 04-20-2022 Episodic Other connective tissue disease (2 sources) Fibromyalgia; Translations: [Fibromyalgia] Onset: 01-01-2024 01-01-2024 Episodic Other connective tissue disease (2 sources) Foot pain; Translations: [Pain in left foot] Onset: 02-12-2024 Resolved: 03-17-2024 03-17-2024 Episodic Other non-traumatic joint disorders (2 sources) Hip pain; Translations: [Pain in left hip] Onset: 03-17-2024 03-17-2024 Episodic Other skin disorders (2 sources) Hyperhidrosis; Translations: [Generalized hyperhidrosis] Onset: 05-21-2024 05-21-2024 Episodic Results Test Name Value Interpretation Reference Range Facil ity CBC AUTO DIFFon 09-04-2022 BASO # 0.0 103/ul Normal 0.0-0.1 [facility] Comment on above: Performed By: #### L IVER, TSH, LIPID, FT3, BMP #### [facility] [address] [place] [address] Dr. Annalise Sebastian Basophils/100 WBC (Bld) 0.6 % Normal 0.2-2.0 [facility] Comment on above: Performed By: #### L IVER, TSH, LIPID, FT3, BMP #### [facility] [address] [place] [address] Dr. Annalise Sebastian EO # 0.1 103/ul Normal 0.0-0.7 [facility] Comment on above: Performed By: #### L IVER, TSH, LIPID, FT3, BMP #### [facility] [address] [place] [address] Dr. Annalise Sebastian Eosinophils/100 WBC (Bld) 1.7 % Normal 0.9-7.0 [facility] Comment on above: Performed By: #### L IVER, TSH, LIPID, FT3, BMP #### [facility] [address] [place] [address] Dr. Annalise Sebastian Erythrocyte distribution width (RBC) [Ratio] 13.3 % Normal 11.0-15.0 [facility] Comment on above: Performed By: #### L IVER, TSH, LIPID, FT3, BMP #### [facility] [address] [place] [address] Dr. Annalise Sebastian Hematocrit (Bld) [Volume fraction] 42.5 % Normal 36.0-48.0 [facility] Comment on above: Performed By: #### L IVER, TSH, LIPID, FT3, BMP #### [facility] [address] [place] [address] Dr. Annalise Sebastian Hemoglobin (Bld) [Mass/Vol] 14.2 g/dL Normal 12.0-16.0 [facility] Comment on above: Performed By: #### L IVER, TSH, LIPID, FT3, BMP #### [facility] [address] [place] [address] Dr. Annalise Sebastian IG # 0.02 10e3/ul Normal 0.00-0.03 [facility] Comment on above: Performed By: #### L IVER, TSH, LIPID, FT3, BMP #### [facility] [address] [place] [address] Dr. Annalise Sebastian IG % 0.3 % Normal 0.0-0.5 [facility] Comment on above: Performed By: #### L IVER, TSH, LIPID, FT3, BMP #### [facility] [address] [place] [address] Dr. Annalise Sebastian LYMPH # 1.4 103/ul Normal 1.2-3.8 [facility] Comment on above: Performed By: #### L IVER, TSH, LIPID, FT3, BMP #### [facility] [address] [place] [address] Dr. Annalise Sebastian Lymphocytes/100 WBC (Bld) 20.0 % Critically low 20.5-60.0 [facility] Comment on above: Performed By: #### L IVER, TSH, LIPID, FT3, BMP #### [facility] [address] [place] [address] Dr. Annalise Sebastian MANUAL DIFF REQ NO Normal [facility] Comment on above: Performed By: #### L IVER, TSH, LIPID, FT3, BMP #### [facility] [address] [place] [address] Dr. Annalise Sebastian MCH (RBC) [Entitic mass] 27.5 pg Normal 26.7-34.0 [facility] Comment on above: Performed By: #### L IVER, TSH, LIPID, FT3, BMP #### [facility] [address] [place] [address] Dr. Annalise Sebastian MCHC (RBC) [Mass/Vol] 33.4 g/dL Normal 29.9-35.2 [facility] Comment on above: Performed By: #### L IVER, TSH, LIPID, FT3, BMP #### [facility] [address] [place] [address] Dr. Annalise Sebastian MCV (RBC) [Entitic vol] 82.4 fL Normal 81.0-99.0 [facility] Comment on above: Performed By: #### L IVER, TSH, LIPID, FT3, BMP #### [facility] [address] [place] [address] Dr. Annalise Sebastian MONO # 0.6 103/ul Normal 0.3-0.8 [facility] Comment on above: Performed By: #### L IVER, TSH, LIPID, FT3, BMP #### [facility] [address] [place] [address] Dr. Annalise Sebastian Monocytes/100 WBC (Bld) 8.1 % Normal 1.7-12.0 [facility] Comment on above: Performed By: #### L IVER, TSH, LIPID, FT3, BMP #### [facility] [address] [place] [address] Dr. Annalise Sebastian NEUT # 4.8 103/ul Normal 1.4-6.5 [facility] Comment on above: Performed By: #### L IVER, TSH, LIPID, FT3, BMP #### [facility] [address] [place] [address] Dr. Annalise Sebastian Neutrophils/100 WBC (Bld) 69.3 % Normal 43.0-75.0 [facility] Comment on above: Performed By: #### L IVER, TSH, LIPID, FT3, BMP #### [facility] [address] [place] [address] Dr. Annalise Sebastian Platelet mean volume (Bld) [Entitic vol] 9.7 fL Normal 9.5-13.5 [facility] Comment on above: Performed By: #### L IVER, TSH, LIPID, FT3, BMP #### [facility] [address] [place] [address] Dr. Annalise Sebastian PLT 290 103/ul Normal 150-450 [facility] Comment on above: Performed By: #### L IVER, TSH, LIPID, FT3, BMP #### [facility] [address] [place] [address] Dr. Annalise Sebastian RBC 5.16 106/ul Normal 4.20-5.40 [facility] Comment on above: Performed By: #### L IVER, TSH, LIPID, FT3, BMP #### [facility] [address] [place] [address] Dr. Annalise Sebastian WBC 6.9 103/ul Normal 4.0-11.0 [facility] Comment on above: Performed By: #### L IVER, TSH, LIPID, FT3, BMP #### [facility] [address] [place] [address] Dr. Annalise Sebastian FREE T3on 09-04-2022 FREE T3 2.68 pg/mlL Normal 2.18-3.98 [facility] Comment on above: Performed By: #### L IVER, TSH, LIPID, FT3, BMP #### [facility] [address] [place] [address] Dr. Annalise Sebastian FREE T4on 09-04-2022 Free T4 [Mass/Vol] 1.06 ng/dL Normal 0.76-1.[address] [facility] Comment on above: Performed By: #### L IVER, TSH, LIPID, FT3, BMP #### [facility] [address] [place] [address] Dr. Annalise Sebastian LIPID PROFILEon 09-04-2022 CHOL-HDL RATIO NORM SEE BELOW Normal [facility] Comment on above: Result Comment: 3.3 - 4.4 LOW RISK 4.4 - 7.1 AVERAGE RISK 7.1 - 11.0 MODERATE RISK >11.0 HIGH RISK Performed By: #### L IVER, TSH, LIPID, FT3, BMP #### [facility] [address] [place] [address] Dr. Annalise Sebastian Cholesterol [Mass/Vol] 170 mg/dL Normal <=200 [facility] Comment on above: Performed By: #### L IVER, TSH, LIPID, FT3, BMP #### [facility] [address] [place] [address] Dr. Annalise Sebastian Cholesterol in HDL [Mass/Vol] 36 mg/dL Critically low 40-60 [facility] Comment on above: Performed By: #### L IVER, TSH, LIPID, FT3, BMP #### [facility] [address] [place] [address] Dr. Annalise Sebastian Cholesterol in LDL [Mass/Vol] 85.2 mg/dL Normal [facility] Comment on above: Performed By: #### L IVER, TSH, LIPID, FT3, BMP #### [facility] [address] [address] [address] Annalise Sebastian Cholesterol.total/C holesterol in HDL [Mass ratio] 4.7 {ratio} Normal [facility] Comment on above: Performed By: #### L IVER, TSH, LIPID, FT3, BMP #### [facility] [address] [place] [address] Dr. Annalise Sebastian HDL NORMAL > or = 60 mg/dl - LO W CARDIOVASCULAR RISK <40 mg/dl - HIGH CARDIOVASCULAR RISK Normal [facility] Comment on above: Performed By: #### L IVER, TSH, LIPID, FT3, BMP #### [facility] [address] [place] [address] Dr. Annalise Sebastian LDL CALC NORMAL SEE BELOW Normal [facility] Comment on above: Result Comment: <100 mg/dl OPTIMAL 100 - 129 mg/dl NEAR OR ABOVE OPTIMAL 130 - 159 mg/dl BORDERLINE HIGH 160 - 189 mg/dl HIGH >190 mg/dl VERY HIGH Performed By: #### L IVER, TSH, LIPID, FT3, BMP #### [facility] [address] [place] [address] Dr. Annalise Sebastian Triglyceride [Mass/Vol] 244 mg/dL Critically high <=150 [facility] Comment on above: Performed By: #### L IVER, TSH, LIPID, FT3, BMP #### [facility] [address] [place] [address] Dr. Annalise Sebastian VLDL CALC 48.8 mg/dL Normal [facility] Comment on above: Performed By: #### L IVER, TSH, LIPID, FT3, BMP #### [facility] [address] [place] [address] Dr. Annalise Sebastian LIVER PROFILEon 09-04-2022 Albumin [Mass/Vol] 3.7 g/dL Normal 3.4-5.[address] [facility] Comment on above: Performed By: #### L IVER, TSH, LIPID, FT3, BMP #### [facility] [address] [place] [address] Dr. Annalise Sebastian Albumin/Globulin [Mass ratio] 1.0 {ratio} Normal [facility] Comment on above: Performed By: #### L IVER, TSH, LIPID, FT3, BMP #### [facility] [address] [place] [address] Dr. Annalise Sebastian ALP [Catalytic activity/Vol] 75 U/L Normal 46-116 [facility] Comment on above: Performed By: #### L IVER, TSH, LIPID, FT3, BMP #### [facility] [address] [place] [address] Dr. Annalise Sebastian ALT [Catalytic activity/Vol] 39 U/L Normal 14-59 [facility] Comment on above: Performed By: #### L IVER, TSH, LIPID, FT3, BMP #### [facility] [address] [place] [address] Dr. Annalise Sebastian AST [Catalytic activity/Vol] 30 U/L Normal 15-37 [facility] Comment on above: Performed By: #### L IVER, TSH, LIPID, FT3, BMP #### [facility] [address] [place] [address] Dr. Annalise Sebastian BILI, CONJUGATED 0.1 mg/dL Normal 0.0-0.2 [facility] Comment on above: Performed By: #### L IVER, TSH, LIPID, FT3, BMP #### [facility] [address] [place] [address] Dr. Annalise Sebastian Bilirubin [Mass/Vol] 0.3 mg/dL Normal 0.2-1.0 [facility] Comment on above: Performed By: #### L IVER, TSH, LIPID, FT3, BMP #### [facility] [address] [place] [address] Dr. Annalise Sebastian Globulin (S) [Mass/Vol] 3.6 g/dL Normal [facility] Comment on above: Performed By: #### L IVER, TSH, LIPID, FT3, BMP #### [facility] [address] [place] [address] Dr. Annalise Sebastian Protein [Mass/Vol] 7.3 g/dL Normal 6.4-8.2 [facility] Comment on above: Performed By: #### L IVER, TSH, LIPID, FT3, BMP #### [facility] [address] [place] [address] Dr. Annalise Sebastian PROF CHEM 8 (BAS METB)on Anion gap [Moles/Vol] 9.4 mmol/L Normal [facility] Comment on above: Performed By: #### L IVER, TSH, LIPID, FT3, BMP #### [facility] [address] [place] [address] Dr. Annalise Sebastian Calcium [Mass/Vol] 9.3 mg/dL Normal 8.5-10.1 [facility] Comment on above: Performed By: #### L IVER, TSH, LIPID, FT3, BMP #### [facility] [address] [place] [address] Dr. Annalise Sebastian Chloride [Moles/Vol] 102 mmol/L Normal 98-107 [facility] Comment on above: Performed By: #### L IVER, TSH, LIPID, FT3, BMP #### [facility] [address] [place] [address] Dr. Annalise Sebastian CO2 [Moles/Vol] 29.1 mmol/L Normal 21.0-32.0 [facility] Comment on above: Performed By: #### L IVER, TSH, LIPID, FT3, BMP #### [facility] [address] [place] [address] Dr. Annalise Sebastian Creatinine [Mass/Vol] 1.01 mg/dL Normal 0.55-1.02 [facility] Comment on above: Performed By: #### L IVER, TSH, LIPID, FT3, BMP #### [facility] [address] [place] [address] Dr. Annalise Sebastian EGFR-AF SAO TOMEAN >60 Normal >=60 [facility] Comment on above: Performed By: #### L IVER, TSH, LIPID, FT3, BMP #### [facility] [address] [place] [address] Dr. Annalise Sebastian EGFR-NON AF SAO TOMEAN 56 mL/min/1.73m2 Critically low >=60 [facility] Comment on above: Performed By: #### L IVER, TSH, LIPID, FT3, BMP #### [facility] [address] [place] [address] Dr. Annalise Sebastian Glucose [Mass/Vol] 115 mg/dL Critically high 74-106 [facility] Comment on above: Performed By: #### L IVER, TSH, LIPID, FT3, BMP #### [facility] [address] [place] [address] Dr. Annalise Sebastian Potassium [Moles/Vol] 3.5 mmol/L Normal 3.5-5.1 [facility] Comment on above: Performed By: #### L IVER, TSH, LIPID, FT3, BMP #### [facility] [address] [place] [address] Dr. Annalise Sebastian Sodium [Moles/Vol] 137 mmol/L Normal 136-[address] [facility] Comment on above: Performed By: #### L IVER, TSH, LIPID, FT3, BMP #### [facility] [address] [place] [address] Dr. Annalise Sebastian Urea nitrogen [Mass/Vol] 12.0 mg/dL Normal 7.0-18.0 [facility] Comment on above: Performed By: #### L IVER, TSH, LIPID, FT3, BMP #### [facility] [address] [place] [address] Dr. Annalise Sebastian Urea nitrogen/Creatinine [Mass ratio] 11.9 mg/mg Normal [facility] Comment on above: Performed By: #### L IVER, TSH, LIPID, FT3, BMP #### [facility] [address] [place] [address] Dr. Annalise Sebastian TSHon 09-04-2022 TSH 1.347 uIU/mL Normal 0.358-3.740 [facility] Comment on above: Performed By: #### L IVER, TSH, LIPID, FT3, BMP #### [facility] [address] [address] [address] Annalise Sebastian US CHESTon 04-21-2022 US [...] MIKE Date: 2022-04-21 17:34 Normal [facility] CBC AUTO DIFFon 09-27-2021 BASO # 0.0 103/ul Normal 0.0-0.1 [facility] Comment on above: Performed By: #### C BC #### [facility] [address] [address] [address] Annalise Sebastian Basophils/100 WBC (Bld) 0.5 % Normal 0.2-2.0 [facility] Comment on above: Performed By: #### C BC #### [facility] [address] [address] [address] Annalise Sebastian EO # 0.2 103/ul Normal 0.0-0.7 [facility] Comment on above: Performed By: #### C BC #### [facility] [address] [address] [address] Annalise Sebastian Eosinophils/100 WBC (Bld) 1.9 % Normal 0.9-7.0 [facility] Comment on above: Performed By: #### C BC #### [facility] [address] [address] [address] Annalise Sebastian Erythrocyte distribution width (RBC) [Ratio] 13.3 % Normal 11.0-15.0 [facility] Comment on above: Performed By: #### C BC #### [facility] [address] [place] [address] Dr. Annalise Sebastian Hematocrit (Bld) [Volume fraction] 40.9 % Normal 36.0-48.0 [facility] Comment on above: Performed By: #### C BC #### [facility] [address] [place] [address] Dr. Annalise Sebastian Hemoglobin (Bld) [Mass/Vol] 12.9 g/dL Normal 12.0-16.0 [facility] Comment on above: Performed By: #### C BC #### [facility] [address] [place] [address] Dr. Annalise Sebastian IG # 0.02 10e3/ul Normal 0.00-0.03 [facility] Comment on above: Performed By: #### C BC #### [facility] [address] [place] [address] Dr. Annalise Sebastian IG % 0.2 % Normal 0.0-0.5 [facility] Comment on above: Performed By: #### C BC #### [facility] [address] [place] [address] Dr. Annalise Sebastian LYMPH # 1.8 103/ul Normal 1.2-3.8 [facility] Comment on above: Performed By: #### C BC #### [facility] [address] [place] [address] Dr. Annalise Sebastian Lymphocytes/100 WBC (Bld) 21.0 % Normal 20.5-60.0 [facility] Comment on above: Performed By: #### C BC #### [facility] [address] [place] [address] Dr. Annalise Sebastian MANUAL DIFF REQ NO Normal [facility] Comment on above: Performed By: #### C BC #### [facility] [address] [place] [address] Dr. Annalise Sebastian MCH (RBC) [Entitic mass] 26.9 pg Normal 26.7-34.0 [facility] Comment on above: Performed By: #### C BC #### [facility] [address] [place] [address] Dr. Annalise Sebastian MCHC (RBC) [Mass/Vol] 31.5 g/dL Normal 29.9-35.2 [facility] Comment on above: Performed By: #### C BC #### [facility] [address] [address] [address] Annalise Sebastian MCV (RBC) [Entitic vol] 85.4 fL Normal 81.0-99.0 [facility] Comment on above: Performed By: #### C BC #### [facility] [address] [address] [address] Annalise Sebastian MONO # 0.6 103/ul Normal 0.3-0.8 [facility] Comment on above: Performed By: #### C BC #### [facility] [address] [address] [address] Annalise Sebastian Monocytes/100 WBC (Bld) 7.7 % Normal 1.7-12.0 [facility] Comment on above: Performed By: #### C BC #### [facility] [address] [place] [address] Dr. Annalise Sebastian NEUT # 5.7 103/ul Normal 1.4-6.5 [facility] Comment on above: Performed By: #### C BC #### [facility] [address] [place] [address] Dr. Annalise Sebastian Neutrophils/100 WBC (Bld) 68.7 % Normal 43.0-75.0 [facility] Comment on above: Performed By: #### C BC #### [facility] [address] [place] [address] Dr. Annalise Sebastian Platelet mean volume (Bld) [Entitic vol] 10.0 fL Normal 9.5-13.5 [facility] Comment on above: Performed By: #### C BC #### [facility] [address] [place] [address] Dr. Annalise Sebastian PLT 355 103/ul Normal 150-450 [facility] Comment on above: Performed By: #### C BC #### [facility] [address] [place] [address] Dr. Annalise Sebastian RBC 4.79 106/ul Normal 4.20-5.40 [facility] Comment on above: Performed By: #### C BC #### [facility] [address] [place], [place] [id number] Dr. Annalise Sebastian WBC 8.3 103/ul Normal 4.0-11.0 [facility] Comment on above: Performed By: #### C BC #### [facility] [address] [place] [address] Dr. Annalise Sebastian FREE T3on 09-27-2021 FREE T3 2.77 pg/mlL Normal 2.77-5.27 [facility] Comment on above: Performed By: #### F T3, BMP, LIPID, TSH, LIVER #### [facility] [address] [place] [address] Dr. Annalise Sebastian FREE T4on 09-27-2021 Free T4 [Mass/Vol] 1.29 ng/dL Normal 0.78-2.[address] [facility] Comment on above: Performed By: #### L IVER, TSH, LIPID, FT3, BMP #### [facility] [address] [place] [address] Dr. Annalise Sebastian LIPID PROFILEon 09-27-2021 CHOL-HDL RATIO NORM SEE BELOW Normal [facility] Comment on above: Result Comment: 3.3 - 4.4 LOW RISK 4.4 - 7.1 AVERAGE RISK 7.1 - 11.0 MODERATE RISK >11.0 HIGH RISK Performed By: #### L IVER, TSH, LIPID, FT3, BMP #### [facility] [address] [place] [address] Dr. Annalise Sebastian Cholesterol [Mass/Vol] 148 mg/dL Normal <=200 [facility] Comment on above: Performed By: #### L IVER, TSH, LIPID, FT3, BMP #### [facility] [address] [place] [address] Dr. Annalise Sebastian Cholesterol in HDL [Mass/Vol] 36 mg/dL Normal [facility] Comment on above: Performed By: #### L IVER, TSH, LIPID, FT3, BMP #### [facility] [address] [place] [address] Dr. Annalise Sebastian Cholesterol in LDL [Mass/Vol] 59.8 mg/dL Normal [facility] Comment on above: Performed By: #### L IVER, TSH, LIPID, FT3, BMP #### [facility] [address] [address] [address] Annalise Sebastian Cholesterol.total/C holesterol in HDL [Mass ratio] 4.1 {ratio} Normal [facility] Comment on above: Performed By: #### L IVER, TSH, LIPID, FT3, BMP #### [facility] [address] [address] [address] Annalise Sebastian HDL NORMAL > or = 60 mg/dl - LO W CARDIOVASCULAR RISK <40 mg/dl - HIGH CARDIOVASCULAR RISK Normal [facility] Comment on above: Performed By: #### L IVER, TSH, LIPID, FT3, BMP #### [facility] [address] [address] [address] Annalise Sebastian LDL CALC NORMAL SEE BELOW Normal [facility] Comment on above: Result Comment: <100 mg/dl OPTIMAL 100 - 129 mg/dl NEAR OR ABOVE OPTIMAL 130 - 159 mg/dl BORDERLINE HIGH 160 - 189 mg/dl HIGH >190 mg/dl VERY HIGH Performed By: #### L IVER, TSH, LIPID, FT3, BMP #### [facility] [address] [address] [address] Annalise Sebastian Triglyceride [Mass/Vol] 261 mg/dL Critically high <=150 [facility] Comment on above: Performed By: #### L IVER, TSH, LIPID, FT3, BMP #### [facility] [address] [address] [address] Annalise Sebastian VLDL CALC 52.2 mg/dL Normal [facility] Comment on above: Performed By: #### L IVER, TSH, LIPID, FT3, BMP #### [facility] [address] [address] [address] Annalise Sebastian LIVER PROFILEon 09-27-2021 Albumin [Mass/Vol] 3.8 g/dL Normal 3.5-5.[address] [facility] Comment on above: Performed By: #### F T3, BMP, LIPID, TSH, LIVER #### [facility] [address] [address] [address] Annalise Sebastian Albumin/Globulin [Mass ratio] 1.0 {ratio} Normal [facility] Comment on above: Performed By: #### F T3, BMP, LIPID, TSH, LIVER #### [facility] [address] [address] [address] Annalise Sebastian ALP [Catalytic activity/Vol] 65 U/L Normal 38-126 [facility] Comment on above: Performed By: #### F T3, BMP, LIPID, TSH, LIVER #### [facility] [address] [address] [address] Annalise Sebastian ALT [Catalytic activity/Vol] 29 U/L Normal 9-52 [facility] Comment on above: Performed By: #### F T3, BMP, LIPID, TSH, LIVER #### [facility] [address] [place] [address] Dr. Annalise Sebastian AST [Catalytic activity/Vol] 24 U/L Normal 14-36 [facility] Comment on above: Performed By: #### F T3, BMP, LIPID, TSH, LIVER #### [facility] [address] [place] [address] Dr. Annalise Sebastian BILI, CONJUGATED 0.1 mg/dL Normal 0.0-0.3 [facility] Comment on above: Performed By: #### F T3, BMP, LIPID, TSH, LIVER #### [facility] [address] [place] [address] Dr. Annalise Sebastian Bilirubin [Mass/Vol] 0.3 mg/dL Normal 0.2-1.3 [facility] Comment on above: Performed By: #### F T3, BMP, LIPID, TSH, LIVER #### [facility] [address] [place] [address] Dr. Annalise Sebastian Globulin (S) [Mass/Vol] 3.9 g/dL Normal [facility] Comment on above: Performed By: #### F T3, BMP, LIPID, TSH, LIVER #### [facility] [address] [place] [address] Dr. Annalise Sebastian Protein [Mass/Vol] 7.7 g/dL Normal 6.1-8.[address] [facility] Comment on above: Performed By: #### F T3, BMP, LIPID, TSH, LIVER #### [facility] [address] [address] [address] Annalise Sebastian PROF CHEM 8 (BAS METB)on Anion gap [Moles/Vol] 10.8 mmol/L Normal [facility] Comment on above: Performed By: #### F T3, BMP, LIPID, TSH, LIVER #### [facility] [address] [address] [address] Annalise Sebastian Calcium [Mass/Vol] 9.5 mg/dL Normal 8.4-10.[address] [facility] Comment on above: Performed By: #### F T3, BMP, LIPID, TSH, LIVER #### [facility] [address] [place] [address] Dr. Annalise Sebastian Chloride [Moles/Vol] 101 mmol/L Normal 98-107 [facility] Comment on above: Performed By: #### F T3, BMP, LIPID, TSH, LIVER #### [facility] [address] [place] [address] Dr. Annalise Sebastian CO2 [Moles/Vol] 29.9 mmol/L Normal 22.0-30.0 [facility] Comment on above: Performed By: #### F T3, BMP, LIPID, TSH, LIVER #### [facility] [address] [place] [address] Dr. Annalise Sebastian Creatinine [Mass/Vol] 1.08 mg/dL Critically high 0.52-1.04 [facility] Comment on above: Performed By: #### F T3, BMP, LIPID, TSH, LIVER #### [facility] [address] [place] [address] Dr. Annalise Sebastian EGFR-AF SAO TOMEAN >60 Normal >=60 [facility] Comment on above: Performed By: #### F T3, BMP, LIPID, TSH, LIVER #### [facility] [address] [place] [address] Dr. Annalise Sebastian EGFR-NON AF SAO TOMEAN 52 mL/min/1.73m2 Critically low >=60 [facility] Comment on above: Performed By: #### F T3, BMP, LIPID, TSH, LIVER #### [facility] [address] [place] [address] Dr. Annalise Sebastian Glucose [Mass/Vol] 91 mg/dL Normal 74-106 [facility] Comment on above: Performed By: #### F T3, BMP, LIPID, TSH, LIVER #### [facility] [address] [place] [address] Dr. Annalise Sebastian Potassium [Moles/Vol] 3.7 mmol/L Normal 3.4-5.0 [facility] Comment on above: Performed By: #### F T3, BMP, LIPID, TSH, LIVER #### [facility] [address] [place] [address] Dr. Annalise Sebastian Sodium [Moles/Vol] 138 mmol/L Normal 137-[address] [facility] Comment on above: Performed By: #### F T3, BMP, LIPID, TSH, LIVER #### [facility] [address] [place] [address] Dr. Annalise Sebastian Urea nitrogen [Mass/Vol] 7.0 mg/dL Normal 7.0-17.0 [facility] Comment on above: Performed By: #### F T3, BMP, LIPID, TSH, LIVER #### [facility] [address] [place] [address] Dr. Annalise Sebastian Urea nitrogen/Creatinine [Mass ratio] 6.5 mg/mg Normal [facility] Comment on above: Performed By: #### F T3, BMP, LIPID, TSH, LIVER #### [facility] [address] [place] [address] Dr. Annalise Sebastian TSHon 09-27-2021 TSH 1.680 uIU/mL Normal 0.470-4.680 [facility] Comment on above: Performed By: #### L IVER, TSH, LIPID, FT3, BMP #### [facility] [address] [place] [address] Dr. Annalise Sebastian TSH RANGE SEE BELOW Normal [facility] Comment on above: Result Comment: <0.3 4 UIU/ml HYPERTHYROID 0.34-5.60 UIU/ml EUTHYROID >5.60 UIU/ml HYPOTHYROID Performed By: #### L IVER, TSH, LIPID, FT3, BMP #### [facility] [address] [address] [address] Annalise Sebastian Encounters Encounter Date Encounter Type Care Provider Facility Start: 08-26-2024 End: 08-26-2024 Refill Anthony Bojorquez MD Work Phone: [facility] Comment on above: STEPHANIE (generalized anx iety disorder) ([facility]/HCC) Start: 08-25-2024 End: 08-25-2024 Orders Only Anthony Bojorquez MD Work Phone: [facility] Comment on above: Abnormal mammogram o f left breast (Primary Dx) Start: 03-17-2024 End: 03-17-2024 ambulatory ANTHONY BOJORQUEZ Not Available Start: 02-18-2024 End: 02-19-2024 ambulatory JELNAI CORRALES Not Available Start: 02-12-2024 End: 02-12-2024 ambulatory ANTHONY BOJORQUEZ Not Available Start: 09-04-2022 End: 09-05-[address] ANTHONY BOJORQUEZ Facility:[facility] Start: 04-20-2022 End: 04-21-[address] ANTHONY BOJORQUEZ Facility:[facility] Start: 09-27-2021 End: 09-28-[address] ANTHONY BOJORQUEZ Facility:[facility] Start: 10-17-2017 End: 10-18-2017 Ambulatory DEFAULT PHYSICIAN Facility:[facility] Start: 08-10-2017 End: 08-11-2017 Ambulatory DEFAULT PHYSICIAN Facility:[facility] Procedures Date Procedure Procedure Detail Performing Clinician Start: 08-24-2024 Mammography Anthony swan MD Work Phone: Plan of Treatment Date Care Activity Detail Author Start: 08-24-2025 Screening for malignant neoplasm of breast Mammogram [facility] Start: 10-16-2024 End: 10-16-2024 Patient encounter procedure 10/16/2024 2:00 PM EST Office Visit [facility] [address] [place] [address] Anthony Bojorquez MD [address] [place] [address] [facility] Start: 08-25-2024 End: 10-25-2025 DBT Breast - left diagnostic Left diagnostic mammogram with tomosynthesis Imaging Routine Abnormal mammogram of left breast Expected: 08/25/2024, Expires: 10/25/2025 [facility] Work Phone: Comment on above: Expected: 08/25/2024 , Expires: 10/25/2025 Start: 08-25-2024 End: 10-25-2025 US Breast - left limited Left breast US limited Imaging Routine Abnormal mammogram of left breast Expected: 08/25/2024, Expires: 10/25/2025 [facility] Comment on above: Expected: 08/25/2024 , Expires: 10/25/2025 Start: 06-29-2024 Influenza vaccination Influenza Vacc ine (#1) [facility] Start: 1960 Screening for malignant neoplasm of colon [facility] Immunizations Immunization Date Immunization Notes Care Provider Fa cility 12-28-[address] 12 Years [address] Older Anthony Bojorquez MD Work Phone: [facility] 04-01-2020 zoster vaccine recombinant Anthony Bojorquez MD Work Phone: [facility] 12-09-2019 zoster vaccine recombinant Anthony Bojorquez MD Work Phone: [facility] Payers Date Payer Category Payer Private Health Insurance [employer]THONY [employer] [id number] 2022 Unknown [id number] 1960 Unknown [id number] 1960 Unknown [id number] 1960 Unknown [id number] 1960 Unknown [id number] 1960 Unknown [id number] 1960 Unknown [id number] Unknown Social History Date Type Detail Facility Start: 10-29-2020 Tobacco smoking stat [facility] Smokes tobacco daily [facility] Start: 10-29-2020 History of tobacco use Cigarette Smo ker [facility] Start: 07-24-2024 Cigarettes smoked cu rrent (pack per day) - Reported 0.3 [facility] History of tobacco use Passive smoker [facility] Start: 07-24-2024 Tobacco use and exposure Smoke less tobacco non-user [facility] Start: 07-24-2024 Alcoholic beverage intake Ex-drinker (finding) [facility] Start: 07-24-2024 Tobacco use panel [facility] Start: 1960 Sex assigned at Not on file N [facility] Evaluation note Note Date & Type Note Facility Evaluation note Diagnosis Benign essential hypertension (CMS/HCC)- Primary Essential hypertension, benign MDD (major depressive disorder), recurrent episode, mild (HCC) (CMS/HCC) STEPHANIE (generalized anxiety disorder) (CMS/HCC) Generalized anxiety disorder Chronic bilateral low back pain with left-sided sciatica Acute foot pain, left Adult hypothyroidism (CMS/HCC) Unspecified hypothyroidism Dyslipidemia (CMS/HCC) Other and unspecified hyperlipidemia Chronic obstructive pulmonary disease, unspecified COPD type (CMS/HCC) Encounter for long-term (current) use of medications Encounter for long-term (current) use of other medications Prediabetes Other abnormal glucose Breast cancer screening by mammogram Fibromyalgia Unspecified myalgia and myositis Colon cancer screening Special screening for malignant neoplasms, colon Benign essential hypertension (CMS/HCC)- Primary Essential hypertension, benign Chronic bilateral low back pain with left-sided sciatica MDD (major depressive disorder), recurrent episode, mild (HCC) (CMS/HCC) STEPHANIE (generalized anxiety disorder) (CMS/HCC) Generalized anxiety disorder Chronic obstructive pulmonary disease, unspecified COPD type (CMS/HCC) Chronic left hip pain Plaque psoriasis (CMS/HCC) Other psoriasis Benign essential hypertension (CMS/HCC)- Primary Essential hypertension, benign Chronic obstructive pulmonary disease, unspecified COPD type (CMS/HCC) MDD (major depressive disorder), recurrent episode, mild (HCC) (CMS/HCC) STEPHANIE (generalized anxiety disorder) (CMS/HCC) Generalized anxiety disorder Hyperhidrosis Generalized hyperhidrosis Lumbar spondylolysis Lumbosacral spondylosis without myelopathy SVT (supraventricular tachycardia) (CMS/HCC) Other specified cardiac dysrhythmias Acute pain of left knee- Primary Ganglion cyst of wrist, left Obesity (BMI 30-39.9) Abnormal mammogram of left breast- Primary documented in this encounter [facility] Evaluation note Note Date & Type Note Facility Evaluation note Diagnosis Benign essential hypertension (CMS/HCC)- Primary Essential hypertension, benign MDD (major depressive disorder), recurrent episode, mild (HCC) (CMS/HCC) STEPHANIE (generalized anxiety disorder) (CMS/HCC) Generalized anxiety disorder Chronic bilateral low back pain with left-sided sciatica Acute foot pain, left Adult hypothyroidism (CMS/HCC) Unspecified hypothyroidism Dyslipidemia (CMS/HCC) Other and unspecified hyperlipidemia Chronic obstructive pulmonary disease, unspecified COPD type (CMS/HCC) Encounter for long-term (current) use of medications Encounter for long-term (current) use of other medications Prediabetes Other abnormal glucose Breast cancer screening by mammogram Fibromyalgia Unspecified myalgia and myositis Colon cancer screening Special screening for malignant neoplasms, colon Benign essential hypertension (CMS/HCC)- Primary Essential hypertension, benign Chronic bilateral low back pain with left-sided sciatica MDD (major depressive disorder), recurrent episode, mild (HCC) (CMS/HCC) STEPHANIE (generalized anxiety disorder) (CMS/HCC) Generalized anxiety disorder Chronic obstructive pulmonary disease, unspecified COPD type (CMS/HCC) Chronic left hip pain Plaque psoriasis (CMS/HCC) Other psoriasis Benign essential hypertension (CMS/HCC)- Primary Essential hypertension, benign Chronic obstructive pulmonary disease, unspecified COPD type (CMS/HCC) MDD (major depressive disorder), recurrent episode, mild (HCC) (CMS/HCC) STEPHANIE (generalized anxiety disorder) (CMS/HCC) Generalized anxiety disorder Hyperhidrosis Generalized hyperhidrosis Lumbar spondylolysis Lumbosacral spondylosis without myelopathy SVT (supraventricular tachycardia) (CMS/HCC) Other specified cardiac dysrhythmias Acute pain of left knee- Primary Ganglion cyst of wrist, left Obesity (BMI 30-39.9) STEPHANIE (generalized anxiety disorder) (CMS/HCC) Generalized anxiety disorder documented in this encounter [facility] Summary Purpose Family History No Family History Records FoundNo Family History Records FoundNo Family History Records Found Advance Directives No Advanced Directives Records FoundNo Advanced Directives Records FoundNo Advanced Directives Records Found Additional Source Comments INFORMATION SOURCE (unrecogn ized section and content) DATE CREATED AUTHOR 04/23/2018 [facility] DATE CREATED AUTHOR AUTHOR'S ORGANIZ ATION 09/09/2022 [facility] DATE CREATED AUTHOR AUTHOR'S ORGANIZ ATION 03/19/2024 [facility] EPIC Care Teams (unrecognized sec tion and content) 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 [facility] [employer] [facility]. provides no warranty or guarantee of the accuracy or completeness of information in this document.
== END 2024-09-04 14:27 | disposition home or self-care (01) ==
LOC: MAMMO 14:26
PROVIDERS: PCP Family Medicine; Visit Provider Family Medicine
DX: R92.8 Other abnormal and inconclusive findings on diagnostic imaging of breast (principal)
CPT/HCPCS: 76642; 77065

== ENCOUNTER 2024-09-17 10:05 | Day surgery (SDC) | payer OTHER, SELFPAY ==
--- NOTE | 2024-09-17 10:22 | US_ITS ---
[address] [address] Patient Name: MAIKOL KNIGHT MRN: [id number] date: 1960 Sex: F Assigned Patient Location: Current Patient Location: Accession/Order Number: [id number] Exam Date: 09/17/2024 10:50 Report Date: 09/17/2024 12:49 At the request of: ANTHONY BOJORQUEZ Procedure: US breast vac bx w/ clip LT EXAMINATION: US breast vac bx w/ clip LT HISTORY: Abnormal Mammogram COMPARISON: No relevant comparison available. TECHNIQUE: After obtaining informed consent, ultrasound-guided fine needle aspiration was performed in the usual sterile manner. FINDINGS: IMAGING: Ultrasound. BIOPSY NEEDLE: 13-gauge mammotome vacuum assisted core biopsy LOCATION: 5.3 mm left breast 2:00 nodule SPECIMEN TYPE: 5 core samples. LOCAL ANESTHETIC: 2 cc 1% buffered lidocaine without epinephrine superficial, 7 cc buffered lidocaine with epinephrine deep COMPLICATIONS: None. LABORATORY: Prepared slide smears and washings for cell block evaluation. OTHER: Negative. PATHOLOGY: Pending. An addendum will be added when results are available. US/US breast vac bx w/ clip LT IMPRESSION: 1. Uneventful ultrasound guided left breast nodule vacuum assisted core biopsy 2. Pathology results are pending. Electronically authenticated by: KELLI MARES Date: 09/17/2024 12:49
--- OUTSIDE RECORDS SUMMARY | 2024-09-17 10:28 | XMS_ITS | CCD ---
Author Organization [facility] Care Team Providers Care Baggagemaster Name Role Phone PHYSICIAN, DEFAULT Unavailable Unavailable [...] SEBASTIAN Camacho Consulting Unavailable NADERER, DR ANTHONY Stepehnson Consulting Unavailable NADERER, DR ANTHONY Stephenson Admitting [...] (1 source) Ciprofloxacin Drug Allergy 7 [facility] (1 source) Penicillin Drug Allergy 7 [facility] (1 source) Sulfonamides (Antibiotic) Drug allergy (disorder) 7 [facility] (3 sources) Ciprofloxacin Drug Allergy 3 Unknown [facility] Work Phone: (3 sources) Penicillins Drug Allergy 3 Unknown [facility] (3 sources) Sulfonamides (Antibiotic) Propensity to adverse reactions 3 Unknown [facility] Medications Current Medications Medication Drug Class(es) Dates Sig (Normalized) Sig (Original) [id number] 200 actuat albuterol 0.09 mg/actuat metered dose inhaler (3 sources) beta2-Adrenergic Agonist take 2 puff(s) by inhalation every four hours for wheezing albuterol HFA 90 mcg/act inhaler Inhale 2 puffs every 4 (four) hours if needed for wheezing. Active alendronic acid 70 mg oral tablet (3 sources) Bisphosphonate Start: 07-16-2024 take 1 tablet [...] 07/16/2024 Active ALPRAZolam 0.5 mg oral tablet (4 sources) Benzodiazepine Start: 07-03-2024 End: 09-25-2024 take 1 tablet by mouth three times daily as needed for anxiety ALPRAZolam (Xanax) 0.5 MG tablet Indications: STEPHANIE (generalized anxiety disorder) (CMS/HCC) TAKE 1 TABLET BY MOUTH THREE TIMES DAILY NEEDED FOR ANXIETY for up to 20 days 60 tablet 1 08/26/2024 09/25/2024 Active amitriptyline hydrochloride 25 mg oral tablet (3 sources) Tricyclic Antidepressant Start: 06-25-2024 End: 06-25-2025 take 1 tablet by mouth at bedtime amitriptyline (Elavil) 25 MG tablet Indications: Fibromyalgia Take 1 tablet (25 mg) by mouth at bedtime 30 tablet 11 06/25/2024 06/25/2025 Active atenolol 25 mg oral tablet (3 sources) beta-Adrenergic Mark Start: 04-08-2024 End: 04-08-2025 take 1 tablet by mouth in the morning atenolol (Tenormin) 25 MG tablet Indications: Benign essential hypertension (CMS/HCC) Take 1 tablet (25 mg) by mouth in the morning and 1 tablet (25 mg) before bedtime. 60 tablet 11 04/08/2024 04/08/2025 Active atorvastatin 80 mg oral tablet (3 sources) HMG-CoA Reductase Inhibitor Start: 01-15-2024 End: 01-14-2025 take 1 tablet by mouth once daily atorvastatin (Lipitor) 80 MG tablet Indications: Dyslipidemia (CMS/HCC) Take 1 tablet (80 mg) by mouth Daily 30 tablet 11 01/15/2024 01/14/2025 Active clopidogrel 75 mg oral tablet (3 sources) [id number] Platelet Inhibitor Start: 08-12-2024 take 1 tablet by mouth once daily in the morning clopidogrel (Plavix) 75 MG tablet Indications: Coronary artery disease involving [place] coronary artery of [place] heart without angina pectoris (CMS/HCC) TAKE 1 TABLET BY MOUTH EVERY MORNING 30 tablet 1 08/12/2024 Active 24 hr dilTIAZem hydrochloride 180 mg extended release oral capsule (3 sources) Calcium Channel Mark Start: 06-25-2024 End: 06-25-2025 take 1 capsule by mouth once daily dilTIAZem CD (Cardizem CD) 180 MG 24 hr capsule Indications: SVT (supraventricular tachycardia) (CMS/HCC) Take 1 capsule (180 mg) by mouth Daily 30 capsule 11 06/25/2024 06/25/2025 Active fenofibrate 145 mg oral tablet (3 sources) Peroxisome Proliferator Receptor alpha Agonist Start: 01-28-2024 End: 01-27-2025 take 1 tablet by mouth at bedtime fenofibrate (Tricor) 145 MG tablet Indications: Dyslipidemia (CMS/HCC) Take 1 tablet (145 mg) by mouth at bedtime 30 tablet 11 01/28/2024 01/27/2025 Active gabapentin 600 mg oral tablet (3 sources) Anti-epileptic Agent Start: 07-07-2024 take 1 tablet by mouth once daily at bedtime gabapentin (Neurontin) 600 MG tablet Indications: Fibromyalgia TAKE 1 TABLET BY MOUTH EVERY MORNING and before bedtime 60 tablet 2 07/07/2024 Active levothyroxine sodium 0.05 mg oral tablet (3 sources) l-Thyroxine Start: 06-18-2024 take 1 tablet by mouth before mealtime levothyroxine (Synthroid, Levoxyl) 50 MCG tablet Indications: Hypothyroidism, adult (CMS/HCC) Take 1 tablet (50 mcg) by mouth in the morning. Take before meals. 30 tablet 5 06/18/2024 Active nabumetone 500 mg oral tablet (3 sources) Nonsteroidal Anti-inflammatory Drug Start: 07-21-2024 take 1 tablet by mouth twice daily as needed for pain nabumetone (Relafen) 500 MG tablet Indications: Chronic bilateral low back pain with left-sided sciatica TAKE 1 TABLET BY MOUTH TWICE DAILY NEEDED FOR PAIN 60 tablet 1 07/21/2024 Active 24 hr oxybutynin chloride 10 mg extended release oral tablet (3 sources) Cholinergic Muscarinic Antagonist Start: 05-21-2024 take 1 tablet by mouth once daily oxybutynin XL (Ditropan-XL) 10 MG 24 hr tablet Indications: Hyperhidrosis Take 1 tablet (10 mg) by mouth Daily Do not crush, chew, or split. 30 tablet 5 05/21/2024 Active tiotropium 0.018 mg inhalation powder (3 sources) Anticholinergic Start: 03-17-2024 take 1 capsule by inhalation in the morning tiotropium (Spiriva HandiHaler) 18 MCG inhalation capsule Indications: Chronic obstructive pulmonary disease, unspecified COPD type (CMS/HCC) Place 1 capsule (18 mcg) into inhaler and inhale in the morning. 30 capsule 5 03/17/2024 Active tiZANidine 4 mg oral tablet (3 sources) Central alpha-2 Adrenergic Agonist Start: 06-25-2024 take 1 tablet by mouth three times daily as needed for muscle spasms tiZANidine (Zanaflex) 4 MG tablet Indications: Lumbar spondylolysis Take 1 tablet (4 mg) by mouth 3 (three) times a day as needed for muscle spasms 90 tablet 5 06/25/2024 Active triamcinolone acetonide 5 mg/ml topical cream (3 sources) Corticosteroid Start: 03-17-2024 triamcinolone (Kenalog) 0.5 % cream Indications: Plaque psoriasis (CMS/HCC) Apply topically 3 (three) times a day 60 g 3 03/17/2024 Active 24 hr venlafaxine 75 mg extended release oral capsule (3 sources) Serotonin and Norepinephrine Reuptake Inhibitor Start: [...] Date Documented Da te Episodic/Chronic Anxiety disorders (4 sources) Generalized anxiety disorder; Translations: [Generalized anxiety disorder] Onset: 01 28-22-2024 Chronic Cardiac dysrhythmias (3 sources) Supraventricular tachycardia; Translations: [SVT (supraventricular tachycardia)] Onset: 2 06-12-2023 Chronic Chronic obstructive pulmonary disease and bronchiectasis (3 sources) Chronic obstructive lung disease; Translations: [Chronic obstructive pulmonary disease, unspecified] Onset: 4 01-01-2024 Chronic Coronary atherosclerosis and other heart disease (4 sources) Atherosclerotic heart disease of [place] coronary artery without angina pectoris; Translations: [Coronary arteriosclerosis] Onset: 0 06-12-2023 Chronic Disorders of lipid metabolism (7 sources) Hyperlipidemia, unspecified; Translations: [Dyslipidemia] Onset: 0 Resolved: 4 01-01-2024 Chronic Essential hypertension (8 sources) Essential (primary) hypertension; Translations: [Benign essential hypertension] Onset: 2 Chronic Mood disorders (3 sources) Recurrent major depressive episodes, mild ; Translations: [Major depressive disorder, recurrent, mild] Onset: 4 01-01-2024 Chronic Other aftercare (1 source) 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; Translations: [OTH CORRECTION CURRENT DRUG THERAPY] Onset: 2 Episodic Other circulatory disease (3 sources) History of angioplasty; Translations: [Peripheral vascular angioplasty status with implants and grafts] Onset: 0 06-12-2023 Chronic Other connective tissue disease (3 sources) Ganglion cyst of left wrist; Translations: [Ganglion, left wrist] Onset: 4 07-24-2024 Episodic Other gastrointestinal disorders (3 sources) Irritable bowel syndrome with diarrhea; Translations: [Irritable bowel syndrome with diarrhea] Onset: 4 01-01-2024 Chronic Other inflammatory condition of skin (3 sources) Plaque psoriasis; Translations: [Psoriasis vulgaris] Onset: 4 03-17-2024 Chronic Other non-traumatic joint disorders (3 sources) Pain in left knee; Translations: [Pain in joint, lower leg] Onset: 4 07-24-2024 Episodic Other nutritional; endocrine; and metabolic disorders (3 sources) Body mass index 30+ - obesity; Translations: [Obesity, unspecified] Onset: 0 07-24-2024 Chronic Other screening for suspected conditions (not mental disorders or infectious disease) (5 sources) Mammography abnormal; Translations: [Other abnormal and inconclusive findings on diagnostic imaging of breast] Onset: 4 08-25-2024 Episodic Thyroid disorders (8 sources) Hypothyroidism, unspecified; Translations: [Hypothyroidism] Onset: 1 Chronic Past or Other Problems Problem Classification Problem Date Documented Da te Episodic/Chronic Cardiac dysrhythmias (3 sources) Palpitations; Translations: [Palpitations] Onset: 04-17-2012 06-12-2023 Episodic Diabetes mellitus without complication (3 sources) Prediabetes; Translations: [Prediabetes] Onset: 02-12-2024 02-12-2024 Episodic Other acquired deformities (3 sources) Spondylolysis; Translations: [Spondylolysis, lumbar region] Onset: 02-12-2024 05-21-2024 Episodic Other aftercare (3 sources) Long-term current use of drug therapy; Translations: [Other retirement (current) drug therapy] Onset: 02-12-2024 02-12-2024 Episodic Other connective tissue disease (4 sources) Soft tissue disorder, unspecified; Translations: [SOFT TISSUE DISORDER UNSPECIFIED] Onset: 04-20-2022 Episodic Other connective tissue disease (3 sources) Fibromyalgia; Translations: [Fibromyalgia] Onset: 01-01-2024 01-01-2024 Episodic Other connective tissue disease (3 sources) Foot pain; Translations: [Pain in left foot] Onset: 02-12-2024 Resolved: 03-17-2024 03-17-2024 Episodic Other non-traumatic joint disorders (3 sources) Hip pain; Translations: [Pain in left hip] Onset: 03-17-2024 03-17-2024 Episodic Other skin disorders (3 sources) Hyperhidrosis; 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 Annalise Sebastian Basophils/100 WBC (Bld) 0.6 % Normal 0.2-2.0 [facility] Comment on above: Performed By: #### L IVER, TSH, LIPID, FT3, BMP #### [facility] [address] [place] [address] Dr. Annalise Sebastian EO # 0.1 103/ul Normal 0.0-0.7 [facility] Comment on above: Performed By: #### L IVER, TSH, LIPID, FT3, BMP #### [facility] [address] [place] [address] Dr. Annalise Sebastian Eosinophils/100 WBC (Bld) 1.7 % Normal 0.9-7.0 [facility] Comment on above: Performed By: #### L IVER, TSH, LIPID, FT3, BMP #### [facility] [address] [place] [address] Dr. Annalise Sebastian Erythrocyte distribution width (RBC) [Ratio] 13.3 % Normal 11.0-15.0 [facility] Comment on above: Performed By: #### L IVER, TSH, LIPID, FT3, BMP #### [facility] [address] [place] [address] Dr. Annalise Sebastian Hematocrit (Bld) [Volume fraction] 42.5 % Normal 36.0-48.0 [facility] Comment on above: Performed By: #### L IVER, TSH, LIPID, FT3, BMP #### [facility] [address] [place] [address] Dr. Annalise Sebastian Hemoglobin (Bld) [Mass/Vol] 14.2 g/dL Normal 12.0-16.0 [facility] Comment on above: Performed By: #### L IVER, TSH, LIPID, FT3, BMP #### [facility] [address] [place] [address] Dr. Annalise Sebastian IG # 0.02 10e3/ul Normal 0.00-0.03 [facility] Comment on above: Performed By: #### L IVER, TSH, LIPID, FT3, BMP #### [facility] [address] [place] [address] Dr. Annalise Sebastian IG % 0.3 % Normal 0.0-0.5 [facility] Comment on above: Performed By: #### L IVER, TSH, LIPID, FT3, BMP #### [facility] [address] [place] [address] Dr. Annalise Sebastian LYMPH # 1.4 103/ul Normal 1.2-3.8 [facility] Comment on above: Performed By: #### L IVER, TSH, LIPID, FT3, BMP #### [facility] [address] [place] [address] Dr. Annalise Sebastian Lymphocytes/100 WBC (Bld) 20.0 % Critically low 20.5-60.0 [facility] Comment on above: Performed By: #### L IVER, TSH, LIPID, FT3, BMP #### [facility] [address] [place] [address] Dr. Annalise Sebastian MANUAL DIFF REQ NO Normal [facility] Comment on above: Performed By: #### L IVER, TSH, LIPID, FT3, BMP #### [facility] [address] [place] [address] Dr. Annalise Sebastian MCH (RBC) [Entitic mass] 27.5 pg Normal 26.7-34.0 [facility] Comment on above: Performed By: #### L IVER, TSH, LIPID, FT3, BMP #### [facility] [address] [place] [address] Dr. Annalise Sebastian MCHC (RBC) [Mass/Vol] 33.4 g/dL Normal 29.9-35.2 [facility] Comment on above: Performed By: #### L IVER, TSH, LIPID, FT3, BMP #### [facility] [address] [place] [address] Dr. Annalise Sebastian MCV (RBC) [Entitic vol] 82.4 fL Normal 81.0-99.0 [facility] Comment on above: Performed By: #### L IVER, TSH, LIPID, FT3, BMP #### [facility] [address] [place] [address] Dr. Annalise Sebastian MONO # 0.6 103/ul Normal 0.3-0.8 [facility] Comment on above: Performed By: #### L IVER, TSH, LIPID, FT3, BMP #### [facility] [address] [place] [address] Dr. Annalise Sebastian Monocytes/100 WBC (Bld) 8.1 % Normal 1.7-12.0 [facility] Comment on above: Performed By: #### L IVER, TSH, LIPID, FT3, BMP #### [facility] [address] [place] [address] Dr. Annalise Sebastian NEUT # 4.8 103/ul Normal 1.4-6.5 [facility] Comment on above: Performed By: #### L IVER, TSH, LIPID, FT3, BMP #### [facility] [address] [place] [address] Dr. Annalise Sebastian Neutrophils/100 WBC (Bld) 69.3 % Normal 43.0-75.0 [facility] Comment on above: Performed By: #### L IVER, TSH, LIPID, FT3, BMP #### [facility] [address] [place] [address] Dr. Annalise Sebastian Platelet mean volume (Bld) [Entitic vol] 9.7 fL Normal 9.5-13.5 [facility] Comment on above: Performed By: #### L IVER, TSH, LIPID, FT3, BMP #### [facility] [address] [place] [address] Dr. Annalise Sebastian PLT 290 103/ul Normal 150-450 [facility] Comment on above: Performed By: #### L IVER, TSH, LIPID, FT3, BMP #### [facility] [address] [place] [address] Dr. Annalise Sebastian RBC 5.16 106/ul Normal 4.20-5.40 [facility] Comment on above: Performed By: #### L IVER, TSH, LIPID, FT3, BMP #### [facility] [address] [place] [address] Dr. Annalise Sebastian WBC 6.9 103/ul Normal 4.0-11.0 [facility] Comment on above: Performed By: #### L IVER, TSH, LIPID, FT3, BMP #### [facility] [address] [place] [address] Dr. Annalise Sebastian FREE T3on 09-04-2022 FREE T3 2.68 pg/mlL Normal 2.18-3.98 [facility] Comment on above: Performed By: #### L IVER, TSH, LIPID, FT3, BMP #### [facility] [address] [place] [address] Dr. Annalise Sebastian FREE T4on 09-04-2022 Free T4 [Mass/Vol] 1.06 ng/dL Normal 0.76-1.46 [facility] Comment on above: Performed By: #### L IVER, TSH, LIPID, FT3, BMP #### [facility] [address] [place] [address] Dr. Annalise Sebastian LIPID PROFILEon 09-04-2022 CHOL-HDL RATIO NORM SEE BELOW Normal [facility] Comment on above: Result Comment: 3.3 - 4.4 LOW RISK 4.4 - 7.1 AVERAGE RISK 7.1 - 11.0 MODERATE RISK >11.0 HIGH RISK Performed By: #### L IVER, TSH, LIPID, FT3, BMP #### [facility] [address] [place] [address] Dr. Annalise Sebastian Cholesterol [Mass/Vol] 170 mg/dL Normal <=200 [facility] Comment on above: Performed By: #### L IVER, TSH, LIPID, FT3, BMP #### [facility] [address] [place] [address] Dr. Annalise Sebastian Cholesterol in HDL [Mass/Vol] 36 mg/dL Critically low 40-60 [facility] Comment on above: Performed By: #### L IVER, TSH, LIPID, FT3, BMP #### [facility] [address] [place] [address] Dr. Annalise Sebastian Cholesterol in LDL [Mass/Vol] 85.2 mg/dL Normal [facility] Comment on above: Performed By: #### L IVER, TSH, LIPID, FT3, BMP #### [facility] [address] [address] [address] Annalise Sebastian Cholesterol.total/C holesterol in HDL [Mass ratio] 4.7 {ratio} Normal [facility] Comment on above: Performed By: #### L IVER, TSH, LIPID, FT3, BMP #### [facility] [address] [place] [address] Dr. Annalise Sebastian HDL NORMAL > or = 60 mg/dl - LO W CARDIOVASCULAR RISK <40 mg/dl - HIGH CARDIOVASCULAR RISK Normal [facility] Comment on above: Performed By: #### L IVER, TSH, LIPID, FT3, BMP #### [facility] [address] [place] [address] Dr. Annalise Sebastian LDL CALC NORMAL SEE BELOW Normal [facility] Comment on above: Result Comment: <100 mg/dl OPTIMAL 100 - 129 mg/dl NEAR OR ABOVE OPTIMAL 130 - 159 mg/dl BORDERLINE HIGH 160 - 189 mg/dl HIGH >190 mg/dl VERY HIGH Performed By: #### L IVER, TSH, LIPID, FT3, BMP #### [facility] [address] [place] [address] Dr. Annalise Sebastian Triglyceride [Mass/Vol] 244 mg/dL Critically high <=150 [facility] Comment on above: Performed By: #### L IVER, TSH, LIPID, FT3, BMP #### [facility] [address] [place] [address] Dr. Annalise Sebastian VLDL CALC 48.8 mg/dL Normal [facility] Comment on above: Performed By: #### L IVER, TSH, LIPID, FT3, BMP #### [facility] [address] [place] [address] Dr. Annalise Sebastian LIVER PROFILEon 09-04-2022 Albumin [Mass/Vol] 3.7 g/dL Normal 3.4-5.0 [facility] Comment on above: Performed By: #### L IVER, TSH, LIPID, FT3, BMP #### [facility] [address] [place] [address] Dr. Annalise Sebastian Albumin/Globulin [Mass ratio] 1.0 {ratio} Normal [facility] Comment on above: Performed By: #### L IVER, TSH, LIPID, FT3, BMP #### [facility] [address] [place] [address] Dr. Annalise Sebastian ALP [Catalytic activity/Vol] 75 U/L Normal 46-116 [facility] Comment on above: Performed By: #### L IVER, TSH, LIPID, FT3, BMP #### [facility] [address] [place] [address] Dr. Annalise Sebastian ALT [Catalytic activity/Vol] 39 U/L Normal 14-59 [facility] Comment on above: Performed By: #### L IVER, TSH, LIPID, FT3, BMP #### [facility] [address] [place] [address] Dr. Annalise Sebastian AST [Catalytic activity/Vol] 30 U/L Normal 15-37 [facility] Comment on above: Performed By: #### L IVER, TSH, LIPID, FT3, BMP #### [facility] [address] [place] [address] Dr. Annalise Sebastian BILI, CONJUGATED 0.1 mg/dL Normal 0.0-0.2 [facility] Comment on above: Performed By: #### L IVER, TSH, LIPID, FT3, BMP #### [facility] [address] [place] [address] Dr. Annalise Sebastian Bilirubin [Mass/Vol] 0.3 mg/dL Normal 0.2-1.0 [facility] Comment on above: Performed By: #### L IVER, TSH, LIPID, FT3, BMP #### [facility] [address] [place] [address] Dr. Annalise Sebastian Globulin (S) [Mass/Vol] 3.6 g/dL Normal [facility] Comment on above: Performed By: #### L IVER, TSH, LIPID, FT3, BMP #### [facility] [address] [place] [address] Dr. Annalise Sebastian Protein [Mass/Vol] 7.3 g/dL Normal 6.4-8.2 [facility] Comment on above: Performed By: #### L IVER, TSH, LIPID, FT3, BMP #### [facility] [address] [place] [address] Dr. Annalise Sebastian PROF CHEM 8 (BAS METB)on Anion gap [Moles/Vol] 9.4 mmol/L Normal [facility] Comment on above: Performed By: #### L IVER, TSH, LIPID, FT3, BMP #### [facility] [address] [place] [address] Dr. Annalise Sebastian Calcium [Mass/Vol] 9.3 mg/dL Normal 8.5-10.1 [facility] Comment on above: Performed By: #### L IVER, TSH, LIPID, FT3, BMP #### [facility] [address] [place] [address] Dr. Annalise Sebastian Chloride [Moles/Vol] 102 mmol/L Normal 98-107 [facility] Comment on above: Performed By: #### L IVER, TSH, LIPID, FT3, BMP #### [facility] [address] [place] [address] Dr. Annalise Sebastian CO2 [Moles/Vol] 29.1 mmol/L Normal 21.0-32.0 [facility] Comment on above: Performed By: #### L IVER, TSH, LIPID, FT3, BMP #### [facility] [address] [place] [address] Dr. Annalise Sebastian Creatinine [Mass/Vol] 1.01 mg/dL Normal 0.55-1.02 [facility] Comment on above: Performed By: #### L IVER, TSH, LIPID, FT3, BMP #### [facility] [address] [place] [address] Dr. Annalise Sebastian EGFR-AF BOTSWANAN >60 Normal >=60 [facility] Comment on above: Performed By: #### L IVER, TSH, LIPID, FT3, BMP #### [facility] [address] [place] [address] Dr. Annalise Sebastian EGFR-NON AF [place] 56 mL/min/1.73m2 Critically low >=60 [facility] Comment on above: Performed By: #### L IVER, TSH, LIPID, FT3, BMP #### [facility] [address] [place] [address] Dr. Annalise Sebastian Glucose [Mass/Vol] 115 mg/dL Critically high 74-106 [facility] Comment on above: Performed By: #### L IVER, TSH, LIPID, FT3, BMP #### [facility] [address] [place] [address] Dr. Annalise Sebastian Potassium [Moles/Vol] 3.5 mmol/L Normal 3.5-5.1 [facility] Comment on above: Performed By: #### L IVER, TSH, LIPID, FT3, BMP #### [facility] [address] [place] [address] Dr. Annalise Sebastian Sodium [Moles/Vol] 137 mmol/L Normal 136-145 [facility] Comment on above: Performed By: #### L IVER, TSH, LIPID, FT3, BMP #### [facility] [address] [place] [address] Dr. Annalise Sebastian Urea nitrogen [Mass/Vol] 12.0 mg/dL Normal 7.0-18.0 [facility] Comment on above: Performed By: #### L IVER, TSH, LIPID, FT3, BMP #### [facility] [address] [place] [address] Dr. Annalise Sebastian Urea nitrogen/Creatinine [Mass ratio] 11.9 mg/mg Normal [facility] Comment on above: Performed By: #### L IVER, TSH, LIPID, FT3, BMP #### [facility] [address] [place] [address] Dr. Annalise Sebastian TSHon 09-04-2022 TSH 1.347 uIU/mL Normal 0.358-3.740 [facility] Comment on above: Performed By: #### L IVER, TSH, LIPID, FT3, BMP #### [facility] [address] [address] [address] Annalise Sebastian US CHESTon 04-21-2022 US [...] SEBASTIAN MIKE Date: 2022-04-21 17:34 Normal [facility] CBC AUTO DIFFon 09-27-2021 BASO # 0.0 103/ul Normal 0.0-0.1 [facility] Comment on above: Performed By: #### C BC #### [facility] [address] [address] [address] Annalise Sebastian Basophils/100 WBC (Bld) 0.5 % Normal 0.2-2.0 [facility] Comment on above: Performed By: #### C BC #### [facility] [address] [address] [address] Annalise Sebastian EO # 0.2 103/ul Normal 0.0-0.7 [facility] Comment on above: Performed By: #### C BC #### [facility] [address] [address] [address] Annalise Sebastian Eosinophils/100 WBC (Bld) 1.9 % Normal 0.9-7.0 [facility] Comment on above: Performed By: #### C BC #### [facility] [address] [address] [address] Annalise Sebastian Erythrocyte distribution width (RBC) [Ratio] 13.3 % Normal 11.0-15.0 [facility] Comment on above: Performed By: #### C BC #### [facility] [address] [place] [address] Dr. Annalise Sebastian Hematocrit (Bld) [Volume fraction] 40.9 % Normal 36.0-48.0 [facility] Comment on above: Performed By: #### C BC #### [facility] [address] [place] [address] Dr. Annalise Sebastian Hemoglobin (Bld) [Mass/Vol] 12.9 g/dL Normal 12.0-16.0 [facility] Comment on above: Performed By: #### C BC #### [facility] [address] [place] [address] Dr. Annalise Sebastian IG # 0.02 10e3/ul Normal 0.00-0.03 [facility] Comment on above: Performed By: #### C BC #### [facility] [address] [place] [address] Dr. Annalise Sebastian IG % 0.2 % Normal 0.0-0.5 [facility] Comment on above: Performed By: #### C BC #### [facility] [address] [place] [address] Dr. Annalise Sebastian LYMPH # 1.8 103/ul Normal 1.2-3.8 [facility] Comment on above: Performed By: #### C BC #### [facility] [address] [place] [address] Dr. Annalise Sebastian Lymphocytes/100 WBC (Bld) 21.0 % Normal 20.5-60.0 [facility] Comment on above: Performed By: #### C BC #### [facility] [address] [place] [address] Dr. Annalise Sebastian MANUAL DIFF REQ NO Normal [facility] Comment on above: Performed By: #### C BC #### [facility] [address] [place] [address] Dr. Annalise Sebastian MCH (RBC) [Entitic mass] 26.9 pg Normal 26.7-34.0 [facility] Comment on above: Performed By: #### C BC #### [facility] [address] [place] [address] Dr. Annalise Sebastian MCHC (RBC) [Mass/Vol] 31.5 g/dL Normal 29.9-35.2 [facility] Comment on above: Performed By: #### C BC #### [facility] [address] [address] [address] Annalise Sebastian MCV (RBC) [Entitic vol] 85.4 fL Normal 81.0-99.0 [facility] Comment on above: Performed By: #### C BC #### [facility] [address] [address] [address] Annalise Sebastian MONO # 0.6 103/ul Normal 0.3-0.8 [facility] Comment on above: Performed By: #### C BC #### [facility] [address] [address] [address] Annalise Sebastian Monocytes/100 WBC (Bld) 7.7 % Normal 1.7-12.0 [facility] Comment on above: Performed By: #### C BC #### [facility] [address] [place] [address] Dr. Annalise Sebastian NEUT # 5.7 103/ul Normal 1.4-6.5 [facility] Comment on above: Performed By: #### C BC #### [facility] [address] [place] [address] Dr. Annalise Sebastian Neutrophils/100 WBC (Bld) 68.7 % Normal 43.0-75.0 [facility] Comment on above: Performed By: #### C BC #### [facility] [address] [place] [address] Dr. Annalise Sebastian Platelet mean volume (Bld) [Entitic vol] 10.0 fL Normal 9.5-13.5 [facility] Comment on above: Performed By: #### C BC #### [facility] [address] [place] [address] Dr. Annalise Sebastian PLT 355 103/ul Normal 150-450 [facility] Comment on above: Performed By: #### C BC #### [facility] [address] [place] [address] Dr. Annalise Sebastian RBC 4.79 106/ul Normal 4.20-5.40 [facility] Comment on above: Performed By: #### C BC #### [facility] [address] [place], [place] [id number] Dr. Annalise Sebastian WBC 8.3 103/ul Normal 4.0-11.0 [facility] Comment on above: Performed By: #### C BC #### [facility] [address] [place] [address] Dr. Annalise Sebastian FREE T3on 09-27-2021 FREE T3 2.77 pg/mlL Normal 2.77-5.27 [facility] Comment on above: Performed By: #### F T3, BMP, LIPID, TSH, LIVER #### [facility] [address] [place] [address] Dr. Annalise Sebastian FREE T4on 09-27-2021 Free T4 [Mass/Vol] 1.29 ng/dL Normal 0.78-2.19 [facility] Comment on above: Performed By: #### L IVER, TSH, LIPID, FT3, BMP #### [facility] [address] [place] [address] Dr. Annalise Sebastian LIPID PROFILEon 09-27-2021 CHOL-HDL RATIO NORM SEE BELOW Normal [facility] Comment on above: Result Comment: 3.3 - 4.4 LOW RISK 4.4 - 7.1 AVERAGE RISK 7.1 - 11.0 MODERATE RISK >11.0 HIGH RISK Performed By: #### L IVER, TSH, LIPID, FT3, BMP #### [facility] [address] [place] [address] Dr. Annalise Sebastian Cholesterol [Mass/Vol] 148 mg/dL Normal <=200 [facility] Comment on above: Performed By: #### L IVER, TSH, LIPID, FT3, BMP #### [facility] [address] [place] [address] Dr. Annalise Sebastian Cholesterol in HDL [Mass/Vol] 36 mg/dL Normal [facility] Comment on above: Performed By: #### L IVER, TSH, LIPID, FT3, BMP #### [facility] [address] [place] [address] Dr. Annalise Sebastian Cholesterol in LDL [Mass/Vol] 59.8 mg/dL Normal [facility] Comment on above: Performed By: #### L IVER, TSH, LIPID, FT3, BMP #### [facility] [address] [address] [address] Annalise Sebastian Cholesterol.total/C holesterol in HDL [Mass ratio] 4.1 {ratio} Normal [facility] Comment on above: Performed By: #### L IVER, TSH, LIPID, FT3, BMP #### [facility] [address] [address] [address] Annalise Sebastian HDL NORMAL > or = 60 mg/dl - LO W CARDIOVASCULAR RISK <40 mg/dl - HIGH CARDIOVASCULAR RISK Normal [facility] Comment on above: Performed By: #### L IVER, TSH, LIPID, FT3, BMP #### [facility] [address] [address] [address] Annalise Sebastian LDL CALC NORMAL SEE BELOW Normal [facility] Comment on above: Result Comment: <100 mg/dl OPTIMAL 100 - 129 mg/dl NEAR OR ABOVE OPTIMAL 130 - 159 mg/dl BORDERLINE HIGH 160 - 189 mg/dl HIGH >190 mg/dl VERY HIGH Performed By: #### L IVER, TSH, LIPID, FT3, BMP #### [facility] [address] [address] [address] Annalise Sebastian Triglyceride [Mass/Vol] 261 mg/dL Critically high <=150 [facility] Comment on above: Performed By: #### L IVER, TSH, LIPID, FT3, BMP #### [facility] [address] [address] [address] Annalise Sebastian VLDL CALC 52.2 mg/dL Normal [facility] Comment on above: Performed By: #### L IVER, TSH, LIPID, FT3, BMP #### [facility] [address] [address] [address] Annalise Sebastian LIVER PROFILEon 09-27-2021 Albumin [Mass/Vol] 3.8 g/dL Normal 3.5-5.0 [facility] Comment on above: Performed By: #### F T3, BMP, LIPID, TSH, LIVER #### [facility] [address] [address] [address] Annalise Sebastian Albumin/Globulin [Mass ratio] 1.0 {ratio} Normal [facility] Comment on above: Performed By: #### F T3, BMP, LIPID, TSH, LIVER #### [facility] [address] [address] [address] Annalise Sebastian ALP [Catalytic activity/Vol] 65 U/L Normal 38-126 [facility] Comment on above: Performed By: #### F T3, BMP, LIPID, TSH, LIVER #### [facility] [address] [address] [address] Annalise Sebastian ALT [Catalytic activity/Vol] 29 U/L Normal 9-52 [facility] Comment on above: Performed By: #### F T3, BMP, LIPID, TSH, LIVER #### [facility] [address] [place] [address] Dr. Annalise Sebastian AST [Catalytic activity/Vol] 24 U/L Normal 14-36 [facility] Comment on above: Performed By: #### F T3, BMP, LIPID, TSH, LIVER #### [facility] [address] [place] [address] Dr. Annalise Sebastian BILI, CONJUGATED 0.1 mg/dL Normal 0.0-0.3 [facility] Comment on above: Performed By: #### F T3, BMP, LIPID, TSH, LIVER #### [facility] [address] [place] [address] Dr. Annalise Sebastian Bilirubin [Mass/Vol] 0.3 mg/dL Normal 0.2-1.3 [facility] Comment on above: Performed By: #### F T3, BMP, LIPID, TSH, LIVER #### [facility] [address] [place] [address] Dr. Annalise Sebastian Globulin (S) [Mass/Vol] 3.9 g/dL Normal [facility] Comment on above: Performed By: #### F T3, BMP, LIPID, TSH, LIVER #### [facility] [address] [place] [address] Dr. Annalise Sebastian Protein [Mass/Vol] 7.7 g/dL Normal 6.1-8.2 [facility] Comment on above: Performed By: #### F T3, BMP, LIPID, TSH, LIVER #### [facility] [address] [address] [address] Annalise Sebastian PROF CHEM 8 (BAS METB)on Anion gap [Moles/Vol] 10.8 mmol/L Normal [facility] Comment on above: Performed By: #### F T3, BMP, LIPID, TSH, LIVER #### [facility] [address] [address] [address] Annalise Sebastian Calcium [Mass/Vol] 9.5 mg/dL Normal 8.4-10.2 [facility] Comment on above: Performed By: #### F T3, BMP, LIPID, TSH, LIVER #### [facility] [address] [place] [address] Dr. Annalise Sebastian Chloride [Moles/Vol] 101 mmol/L Normal 98-107 [facility] Comment on above: Performed By: #### F T3, BMP, LIPID, TSH, LIVER #### [facility] [address] [place] [address] Dr. Annalise Sebastian CO2 [Moles/Vol] 29.9 mmol/L Normal 22.0-30.0 [facility] Comment on above: Performed By: #### F T3, BMP, LIPID, TSH, LIVER #### [facility] [address] [place] [address] Dr. Annalise Sebastian Creatinine [Mass/Vol] 1.08 mg/dL Critically high 0.52-1.04 [facility] Comment on above: Performed By: #### F T3, BMP, LIPID, TSH, LIVER #### [facility] [address] [place] [address] Dr. Annalise Sebastian EGFR-AF BOTSWANAN >60 Normal >=60 [facility] Comment on above: Performed By: #### F T3, BMP, LIPID, TSH, LIVER #### [facility] [address] [place] [address] Dr. Annalise Sebastian EGFR-NON AF BOTSWANAN 52 mL/min/1.73m2 Critically low >=60 [facility] Comment on above: Performed By: #### F T3, BMP, LIPID, TSH, LIVER #### [facility] [address] [place] [address] Dr. Annalise Sebastian Glucose [Mass/Vol] 91 mg/dL Normal 74-106 [facility] Comment on above: Performed By: #### F T3, BMP, LIPID, TSH, LIVER #### [facility] [address] [place] [address] Dr. Annalise Sebastian Potassium [Moles/Vol] 3.7 mmol/L Normal 3.4-5.0 [facility] Comment on above: Performed By: #### F T3, BMP, LIPID, TSH, LIVER #### [facility] [address] [place] [address] Dr. Annalise Sebastian Sodium [Moles/Vol] 138 mmol/L Normal 137-145 [facility] Comment on above: Performed By: #### F T3, BMP, LIPID, TSH, LIVER #### [facility] [address] [place] [address] Dr. Annalise Sebastian Urea nitrogen [Mass/Vol] 7.0 mg/dL Normal 7.0-17.0 [facility] Comment on above: Performed By: #### F T3, BMP, LIPID, TSH, LIVER #### [facility] [address] [place] [address] Dr. Annalise Sebastian Urea nitrogen/Creatinine [Mass ratio] 6.5 mg/mg Normal [facility] Comment on above: Performed By: #### F T3, BMP, LIPID, TSH, LIVER #### [facility] [address] [place] [address] Dr. Annalise Sebastian TSHon 09-27-2021 TSH 1.680 uIU/mL Normal 0.470-4.680 [facility] Comment on above: Performed By: #### L IVER, TSH, LIPID, FT3, BMP #### [facility] [address] [place] [address] Dr. Annalise Sebastian TSH RANGE SEE BELOW Normal [facility] Comment on above: Result Comment: <0.3 4 UIU/ml HYPERTHYROID 0.34-5.60 UIU/ml EUTHYROID >5.60 UIU/ml HYPOTHYROID Performed By: #### L IVER, TSH, LIPID, FT3, BMP #### [facility] [address] [address] [address] Annalise Sebastian Encounters Encounter Date Encounter Type Care Provider Facility Start: 09-05-2024 End: 09-05-2024 Orders Only Anthony Bojorquez MD Work Phone: [facility] Comment on above: Abnormal mammogram o f left breast (Primary Dx) Start: 08-26-2024 End: 08-26-2024 Refill Anthony Bojorquez MD Work Phone: [facility] Comment on above: STEPHANIE (generalized anx iety disorder) ([facility]/HCC) Start: 08-25-2024 End: 08-25-2024 Orders Only Anthony [...] Start: 10-17-2017 End: 10-18-2017 Ambulatory DEFAULT PHYSICIAN Facility:[facility] Start: 08-10-2017 End: 08-11-2017 Ambulatory DEFAULT PHYSICIAN Facility:[facility] Procedures Date Procedure Procedure Detail Performing Clinician Start: 08-24-2024 Mammography Anthony swan MD Work Phone: Plan of Treatment Date Care Activity Detail Author Start: 08-24-2025 Screening for malign ant neoplasm of breast Mammogram [facility] Start: 10-16-2024 End: 10-16-2024 Patient encounter procedure 10/16/2024 2:00 PM EST Office Visit [facility] [address] [place] [phone] Anthony Bojorquez MD [address] [place] [phone] [facility] Start: 09-05-2024 End: 11-05-2025 MG stereo Guidance for percutaneous biopsy.core needle of Breast - left Left stereotactic-guided breast localization and biopsy Imaging Routine Abnormal mammogram of left breast Expected: 09/05/2024, Expires: 11/05/2025 [facility] Work Phone: Comment on above: Expected: 09/05/2024 , Expires: 11/05/2025 Start: 08-25-2024 End: 10-25-2025 DBT Breast - left diagnostic Left diagnostic mammogram with tomosynthesis Imaging Routine Abnormal mammogram of left breast Expected: 08/25/2024, Expires: 10/25/2025 [facility] Work Phone: Comment on above: Expected: 08/25/2024 , Expires: 10/25/2025 Start: 08-25-2024 End: 10-25-2025 US Breast - left limited Left breast US limited Imaging Routine Abnormal mammogram of left breast Expected: 08/25/2024, Expires: 10/25/2025 [facility] Comment on above: Expected: 08/25/2024 , Expires: 10/25/2025 Start: 06-29-2024 Influenza vaccination Influenza Vacc ine (#1) [facility] Start: 1960 Screening for malign ant neoplasm of colon [facility] Immunizations Immunization Date Immunization Notes Care Provider Fa cility 12-28-[address] 12 Years And Older Anthony Bojorquez MD Work Phone: [facility] 04-01-2020 zoster vaccine recombinant Anthony Bojorquez MD Work Phone: [facility] 12-09-2019 zoster vaccine recombinant Anthony Bojorquez MD Work Phone: [facility] Payers Date Payer Category Payer Private Health Insurance [employer] [id number] 2022 Unknown [id number] 1960 Unknown [id number] 1960 Unknown [id number] 1960 Unknown [id number] 1960 Unknown [id number] 1960 Unknown [id number] 1960 Unknown [id number] Unknown Social History Date Type Detail Facility Start: 10-29-2020 Tobacco smoking stat [facility] Smokes tobacco daily [facility] Start: 10-29-2020 History of tobacco use Cigarette Smo ker [facility] Start: 07-24-2024 Cigarettes smoked cu rrent (pack per day) - Reported 0.3 [facility] History of tobacco use Passive smoker [facility] Start: 07-24-2024 Tobacco use and exposure Smoke less tobacco non-user [facility] Start: 07-24-2024 Alcoholic beverage intake Ex-drinker (finding) [facility] Start: 07-24-2024 Tobacco use panel [facility] Start: 1960 Sex assigned at Not on file [facility] Evaluation note Note Date & Type [...] left breast- Primary documented in this encounter [facility] Healthcare Evaluation note Note Date & Type [...] mild (HCC) (CMS/HCC) STEPHANIE (generalized anxiety disorder) ([facility]/HCC) Generalized anxiety disorder Chronic obstructive pulmonary disease, unspecified COPD type (CMS/HCC) Chronic left hip pain Plaque psoriasis (CMS/HCC) Other psoriasis Benign essential hypertension (CMS/HCC)- Primary Essential hypertension, benign Chronic obstructive pulmonary disease, unspecified COPD type (CMS/HCC) MDD (major depressive disorder), recurrent episode, mild (HCC) ([facility]/HCC) STEPHANIE (generalized anxiety disorder) ([facility]/HCC) Generalized anxiety disorder Hyperhidrosis Generalized hyperhidrosis Lumbar spondylolysis Lumbosacral spondylosis without myelopathy SVT (supraventricular tachycardia) (CMS/HCC) Other specified cardiac dysrhythmias Acute pain of left knee- Primary Ganglion cyst of wrist, left Obesity (BMI 30-39.9) STEPHANIE (generalized anxiety disorder) ([facility]) Generalized anxiety disorder documented in this encounter [facility] Healthcare Evaluation note Note Date & Type Note Facility Evaluation note Diagnosis Benign essential hypertension (CMS/HCC)- Primary Essential hypertension, benign MDD (major depressive disorder), recurrent episode, mild (HCC) ([facility]/HCC) STEPHANIE (generalized anxiety disorder) ([facility]) Generalized anxiety disorder Chronic bilateral low back pain with left-sided sciatica Acute foot pain, left Adult hypothyroidism (CMS/HCC) Unspecified hypothyroidism Dyslipidemia (CMS/HCC) Other and unspecified hyperlipidemia Chronic obstructive pulmonary disease, unspecified COPD type ([facility]/HCC) Encounter for long-term (current) use of medications [...] left breast- Primary documented in this encounter [facility] Summary Purpose Family History No Family History Records FoundNo Family History Records FoundNo Family History Records Found Advance Directives No Advanced Directives Records FoundNo Advanced Directives Records FoundNo Advanced Directives Records Found Additional Source Comments INFORMATION SOURCE (unrecogn ized section and content) DATE CREATED AUTHOR 04/23/[address] [facility] DATE CREATED AUTHOR AUTHOR'S ORGANIZ ATION 09/09/2022 [facility] DATE CREATED AUTHOR AUTHOR'S ORGANIZ ATION 03/19/2024 [facility] Care Teams (unrecognized sec tion and content) Baggagemaster Relationship Specialty Start Date End Date Anthony Bojorquez MD [address] [place] [address] PCP - General Family Medicine 03/17/24 Baggagemaster Relationship Specialty Start Date End Date Anthony Bojorquez MD [address] [place] [address] PCP - General Family Medicine 03/17/24 Baggagemaster Relationship Specialty Start Date End Date Anthony Bojorquez MD [address] [place] [address] PCP - General Family Medicine 03/17/24 Reason [...] BE BASED ON THE PRIMARY CLINICAL RECORDS. [facility] [employer] [facility]. provides no warranty or guarantee of the accuracy or completeness of information in this document.
[2024-09-17 10:30] VITALS: BP 127/67; PULSE 80; O2SAT 96
--- NOTE | 2024-09-17 11:20 | SUR.PREOP ---
09/08/24 Pt instructed pt on procedure, date, time, and prep. Pt states that she is able to hold her Clopidogrel for 5 days prior to biopsy and was instructed to do so.
[2024-09-17] MEDS: LIDOCAINE HCL 10 ML, SODIUM BICARBONATE 1 MEQ INJ (11:50)
[2024-09-17] MEDS: LIDOCAINE HCL/EPINEPHRINE 10 ML, SODIUM BICARBONATE 1 MEQ INJ (11:50)
== END 2024-09-17 12:22 | disposition home or self-care (01) ==
LOC: US 10:06
PROVIDERS: Radiology Diagnostic Radiology; PCP Family Medicine; Visit Provider Family Medicine
DX: N60.22 Fibroadenosis of left breast (principal)
CPT/HCPCS: 19083; 77065; 88305